=== PATIENT | female | born 1960 | race Caucasian/White ===

== ENCOUNTER → 2020-03-31 10:07 | Outpatient (CLI) | payer BC, SELFPAY ==
--- NOTE | ~2020-03-31 | DEXA_ITS ---
Bone Density Report Name: Ailyn Farah Age: 60 Sex: Female Ethnicity: White Date of : 1960 Indication: osteopenia; height loss; cancer; hysterectomy; Referring Provider: AXEL MACEDO Study: Bone densitometry was performed. Exam Date: March 31, 2020 Accession number: [id number] Bone Density: Region BMD T-score Z-score Classification AP Spine (L1, L2) 0.896 -0.8 0.6 Normal Femoral Neck (Left) 0.702 -1.3 0.0 Osteopenia Total Hip (Left) 0.856 -0.7 0.2 Normal Femoral Neck (Right) 0.719 -1.2 0.1 Osteopenia Total Hip (Right) 0.829 -0.9 0.0 Normal Total Hip Mean 0.843 -0.8 0.1 Normal World Health Organization criteria for BMD impression classify patients as: Normal (T-score at or above -1.0), Osteopenia (T-score between -1.0 and -2.5), or Osteoporosis (T-score at or below -2.5). 10-year Fracture Risk(1): Major Osteoporotic Fracture 7.2% Hip Fracture 0.5% Reported Risk Factors: [place] (), Neck BMD=0.702, BMI=33.3 (1) FRAX(R) Version 3.08. Fracture probability calculated for an untreated patient. Fracture probability may be lower if the patient has received treatment. Previous Exams: Region Exam Age BMD T-score BMD Change BMD Change Date g/cm2 vs Baseline vs Previous AP Spine(L1, L2) 03/31/2020 60 0.896 -0.8 0.085* 0.085* 10/12/2018 58 0.812 -1.5 Total Hip(Left) 03/31/2020 60 0.856 -0.7 0.017 0.017 10/12/2018 58 0.839 -0.8 Total Hip(Right) 03/31/2020 60 0.829 -0.9 0.018 0.018 10/12/2018 58 0.810 -1.1 *Denotes significance at 95% confidence level, LSC for AP Spine = 0.022 g/cm2, LSC for Total Hip = 0.027 g/cm2 Clinical Information Provided by Patient: Has used the following medications: Vitamin D, Calcium, MTV Has the following medical conditions: Hysterectomy, Breast Cancer 2019, ended chemo December 2019 Patient maximum height was 64 Menopause Age: 28 Drinks caffeinated beverages Onset of menses at age 12 Number of children 2 Impression: The patient has low bone mass, based on the Left Femoral Neck T-score. The patient has an estimated ten-year risk of hip fracture of 0.5% and an estimated ten-year risk of major fracture of 7.2%, based on the WHO FRAX algorithm. No significant bone loss was observed. Discussion: BONE DENSITY IS LOW AT ONE OR MORE SKELETAL SITES. This patient's lowest T-score is low at one or more skeletal sites. It meets t
== END ==
DX: M81.0 Age-related osteoporosis without current pathological fracture (principal); M85.852 Other specified disorders of bone density and structure, left thigh; M85.851 Other specified disorders of bone density and structure, right thigh
CPT/HCPCS: 77080

== ENCOUNTER 2020-07-21 14:45 | Emergency (ER) | payer BC, SELFPAY ==
--- NOTE | ~2020-07-21 | XR_ITS ---
EXAMINATION: XR wrist LT min 3V DATE: 07/21/2020 16:06 INDICATION: Left wrist pain. TECHNIQUE: 4 views of left wrist were obtained. COMPARISON: None. FINDINGS: Bone alignment is normal. No fracture. There is severe osteoarthritis of first carpometacar pal joint. IMPRESSION: 1. Severe osteoarthritis of first carpometacarpal joint. Reviewed, dictated and finalized at location A. NING DEVELOPER
[2020-07-21 15:36] VITALS: BP 131/81; PULSE 93; RESP 22; TEMP 36.9; O2SAT 99
--- NOTE | 2020-07-21 16:43 | PC.NURSE ---
Informed charged nurse that pt has been here over [address] signing up for pt.
--- NOTE | 2020-07-21 16:48 | ED.EXTPRO ---
HPI - Extremity Problem General Chief complaint: Extremity Problem,Nontraumatic Stated complaint: L wrist pain Time Seen by Provider: 07/21/20 16:47 Source: patient Mode of arrival: ambulatory Limitations: no limitations History of Present Illness HPI Narrative: Patient is a 6-year-old female complaining of left wrist pain,, 9 out of 10, worse with palpation and movement, started 5 days ago. Patient takes oxycodone for pain, just her last dose 5 hours ago. She denies any recent injury to the area. Patient denies any swelling or redness of her risk. Patient denies any fever or chills. Related Data Home Medications Medication Instructions Recorded Confirmed docusate sodium 100 mg capsule 100 mg PO DAILY PRN 03/22/20 05/24/20 lisinopril 20 mg tablet 20 mg PO DAILY 03/22/20 05/24/20 multivitamin 1 tablet PO DAILY 03/22/20 05/24/20 oxycodone-acetaminophen 10 mg-325 1 tablet PO Q6H PRN 03/22/20 05/24/20 mg tablet chlorhexidine gluconate 4 % 1 applic TOPICAL DAILY ml 05/24/20 05/24/20 topical liquid cyclobenzaprine 10 mg tablet 10 mg PO TID tablet 05/24/20 05/24/20 mupirocin calcium 2 % nasal ea INTRANASAL DAILY 05/24/20 05/24/20 ointment venlafaxine 150 mg 150 mg PO DAILY 05/24/20 05/24/20 capsule,extended release 24 hr Allergies Allergy/AdvReac Type Severity Reaction Status Date / Time Sulfa (Sulfonamide Allergy Unknown Unknown Verified 07/21/20 15:41 Antibiotics) cyclophosphamide Allergy chest Verified 07/21/20 15:41 tightness and wheezing Review of Systems Review of Systems: All systems reviewed & are unremarkable except as noted in HPI and below PMFSH Past Medical History Medical History Heartburn HTN (hypertension) Insomnia Osteoarthritis Osteopenia Pneumonia Thyroid nodule Surgical History Surgical History History of back surgery History of breast augmentation History of hysterectomy History of knee replacement Hx of cholecystectomy Social History Social History Smoking status: Never smoker Alcohol intake: current Gender identity (if verbalized by the patient): Female Exam Const: General: no acute distress and alert Nutritional Appearance: well nourished Orientation/consciousness: patient oriented x3 HENMT: Head: normal to inspection Neck: Neck: normal visual inspection Resp: Effort & Inspection: normal respiratory effort Skin: General skin exam: normal color, no jaundice and no pallor Rashes: no rashes Wounds: no wounds and no wounds noted Extrem: Other: Negative for any deformity, swelling, redness. Pain on palpation of the left wrist. Neurovascular is intact. Course Vital Signs Vital signs: Vital Signs Temperature 36.9 C 07/21/20 15:36 Pulse Rate 93 07/21/20 15:36 Respiratory Rate 22 H 07/21/20 15:36 Blood Pressure 131/81 07/21/20 15:36 Pulse Oximetry 99 07/21/20 15:36 Temperature 36.9 C 07/21/20 15:36 Pulse Rate 93 07/21/20 15:36 Respiratory Rate 22 H 07/21/20 15:36 Blood Pressure 131/81 07/21/20 15:36 Pulse Oximetry 99 07/21/20 15:36 MDM - Extremity (Nontraumatic) MDM Narrative Medical decision making narrative: Reviewed her x-ray no fracture or dislocation. On exam negative for any cellulitis or swelling thus ruling out any type of infection. Differential Diagnosis Differential diagnosis: Likely other (Left wrist strain, sprain, fracture, dislocation) Discharge Plan Discharge Clinical Impression: Left wrist pain Patient Disposition: Home, Self-Care Condition: Improved Instructions: Antibiotic Form, Arthralgia (ED) Prescriptions: No Action cyclobenzaprine 10 mg tablet 10 mg PO TID RF: 0 mupirocin calcium 2 % ointment intranasal DAILY RF: 0 chlorhexidine gluconate [Antiseptic Skin Clnsr(chlorhe)
[2020-07-21 17:27] VITALS: BP 127/79; PULSE 86; RESP 18; O2SAT 100
[2020-07-21] MEDS: KETOROLAC 30 MG/ML VIAL (*BKC) IM (17:37)
[2020-07-21] MEDS: diazePAM (*CRX) 5 MG TABLET PO (17:37)
== END 2020-07-21 18:11 | disposition home or self-care (01) ==
PROVIDERS: Emergency Provider Emergency Medicine; PCP Internal Medicine
DX: M25.532 Pain in left wrist (principal); I10 Essential (primary) hypertension; M19.90 Unspecified osteoarthritis, unspecified site; M85.80 Other specified disorders of bone density and structure, unspecified site; Z96.659 Presence of unspecified artificial knee joint
CPT/HCPCS: 73110; 96372; 99283; A9270; J1885

== ENCOUNTER → 2021-05-04 05:31 | Outpatient (CLI) | payer BC, SELFPAY ==
[2021-05-04 16:43] LABS: SARS-CoV-2 RNA PCR Negative
== END ==
PROVIDERS: PCP Internal Medicine; Visit Provider Nurse Practitioner
DX: Z20.822 Contact with and (suspected) exposure to COVID-19 (principal); J32.9 Chronic sinusitis, unspecified
CPT/HCPCS: C9803; U0003; U0005

== ENCOUNTER 2021-05-04 09:14 | Outpatient (CLI) | payer BC, SELFPAY ==
--- NOTE | ~2021-05-04 | XR_ITS ---
XR chest 2V 05/04/2021 09:43 Indication: Cough. Hypertension. Breast cancer. Procedure: PA and lateral views of the chest Comparison: Comparison to multiple prior studies sequentially, with oldest reviewed study dated 10/26. Findings: Heart size normal. No focal air space disease, pulmonary edema, pleural effusion or suspect ed pneumothorax. No acute osseous abnormality. There are cholecystectomy clips. Impression: 1: No acute cardiopulmonary disease. Reviewed, dictated and finalized at location D. Impression: 1: No acute cardiopulmonary disease.
== END 2021-05-04 09:15 | disposition home or self-care (01) ==
LOC: ANHIMG 09:18
PROVIDERS: PCP Internal Medicine; Visit Provider Nurse Practitioner
DX: R05.9 Cough, unspecified (principal)
CPT/HCPCS: 71046

== ENCOUNTER 2021-11-22 09:44 | Outpatient (CLI) | payer BC, SELFPAY ==
[2021-11-22 10:31] LABS: CRP < 0.5 mg/dL (<1.0)
[2021-11-22 13:38] LABS: Erythrocyte Sedimentation Rate 17 mm/hr (0-20)
[2021-11-22 15:34] LABS: Rheumatoid Factor < 8.6 IU/ML (<12)
== END 2021-11-22 09:45 | disposition home or self-care (01) ==
LOC: ANHLAB 09:53
PROVIDERS: PCP Internal Medicine
DX: M79.10 Myalgia, unspecified site (principal); R22.33 Localized swelling, mass and lump, upper limb, bilateral; M25.50 Pain in unspecified joint
CPT/HCPCS: 36415; 85652; 86038; 86140; 86430

== ENCOUNTER 2021-11-22 09:54 | Outpatient (CLI) | payer BC, SELFPAY ==
[2021-11-22 10:23] LABS: Basophils Absolute Auto 0.1 K/mm3 (0.0-0.1); Basophils Percent Auto 0.9 % (0.2-1.2); Eosinophils Absolute Auto 0.3 K/mm3 (0-0.3); Eosinophils Percent Auto 3.8 % (0-4.4); Hematocrit 44.6 % (37.0-47.0); Hemoglobin 14.4 g/dL (12.0-15.0); Immature Granulocyte Absolute 0.03 K/mm3 (0.00-0.031); Immature Granulocyte Percent A 0.4 % (0-0.5); Lymphocytes Percent Auto 23.5 % (18.3-44.2); Mean Corpuscular HGB Conc 32.3 g/dl (32-36); Mean Corpuscular Hemoglobin 29.9 pg (26-34); Mean Corpuscular Volume 92.7 fl (80-100); Monocytes Absolute Auto 0.4 K/mm3 (0.1-0.6); Monocytes Percent Auto 6.3 % (2.6-8.5); Neutrophils Absolute Auto 4.4 K/mm3 (1.3-6.7); Neutrophils Percent Auto 65.1 % (45.5-73.1); Platelet Count Result 324 k/mm3 (150-375); Red Blood Count 4.81 M/mm3 (4.2-5.4); Red Cell Distribution Width 13.6 % (11.5-14.5); White Blood Count 6.8 K/mm3 (4.5-10.0)
[2021-11-22 10:29] LABS: Alanine Aminotransferase 23 U/L (6-35); Albumin Level 4.4 g/dL (3.5-5.1); Alkaline Phosphatase 91 U/L (38-126); Anion Gap 4 mmol/L (8-16); Aspartate Amino Transferase 27 U/L (14-36); Bilirubin,Total 0.2 mg/dL (0.2-1.3); Blood Urea Nitrogen 10 mg/dL (7-17); Calcium 8.9 mg/dL (8.4-10.2); Carbon Dioxide 31 mmol/L (22-30); Chloride 103 mmol/L (98-107); Estimated Glomerular Filt Rate > 60; Glucose 95 mg/dL (65-110); Potassium 3.8 mmol/L (3.4-5.0); Sodium 138 mmol/L (137-145)
== END 2021-11-22 09:55 | disposition home or self-care (01) ==
PROVIDERS: PCP Internal Medicine; Visit Provider Internal Medicine Medical Oncology
DX: C50.411 Malignant neoplasm of upper-outer quadrant of right female breast (principal); Z17.1 Estrogen receptor negative status [ER-]; R10.11 Right upper quadrant pain
CPT/HCPCS: 36415; 80053; 85025

== ENCOUNTER 2022-06-24 10:30 | Inpatient (IN) | payer BC, SELFPAY ==
[2022-06-24] VITALS (34 sets, daily range): BP systolic 81–117; BP diastolic 47–75; PULSE 87–111; RESP 11–32; TEMP 36.1–36.9; O2SAT 88–100; BMI 36.1
--- NOTE | ~2022-06-24 | XR_ITS ---
EXAMINATION: XR chest 1V portable DATE: 06/24/2022 11:31 INDICATION: Shortness of breath and cough. TECHNIQUE: A single frontal view of the chest was obtained. COMPARISON: Chest 2 views 05/04/2021 FINDINGS: There are airspace opacities in left mid and lower lung zones. A calcified left lung nodule and calcified left hilar lymph nodes are consistent with old granulomatous disease. No pleural effus ion or pneumothorax. The heart size is normal. There are changes of anterior fusion procedure in cerv ical spine. There are changes of posterior fusion procedure in lumbar spine. IMPRESSION: 1. Airspace opacities in left mid and lower lung zones, consistent with atelectasis versus pneumonia. Reviewed, dictated and finalized at location A. NEYMAN PLUMBER IMPRESSION: 1. Airspace opacities in left mid and lower lung zones, consistent with atelect asis versus pneumonia.
--- NOTE | ~2022-06-24 | CT_ITS ---
EXAMINATION: CTA chest PE protocol DATE: 06/24/2022 12:56 INDICATION: Shortness of breath. Elevated d-dimer. TECHNIQUE: Computed tomography (CT) pulmonary angiogram of the chest was performed with 100 mL Omnipa que-350 intravenous contrast. Additional 3D reconstructions utilizing coronal maximum intensity proje ction (MIP) were performed. Automated exposure control and iterative reconstruction technique were em ployed. The dose-length product was 479.58 mGy-cm. COMPARISON: 10/21/2012 FINDINGS: Good contrast opacification of the pulmonary arteries. There is mild streak artifact from dense contr ast in the superior vena cava and right atrium. Mild scattered motion artifact. Together this only mi ldly decreases sensitivity in some of the smaller subsegmental pulmonary arteries. No pulmonary embol ism. There is a large region of consolidation without significant volume loss involving much of the l eft lower lobe consistent with pneumonia. Mild discoid atelectasis in the more anterior left lower lo be, the lingula and right middle lobe. There are some groundglass opacities in the bilateral lower hayden ngs along with mild peripheral linear opacities at the dependent right lower lobe consistent which is equivocal for additional atelectasis versus minimal pulmonary edema. No pleural effusion or pneumoth orax. Heart size is normal. No pericardial effusion. Thoracic aorta is normal in caliber with no diss ection. Mild likely reactive left hilar lymphadenopathy. Bilateral breast implants. Cholecystectomy c lips the gallbladder fossa. 1.4 cm cyst along the romel hepatis. Incidentally noted is a replaced lef t hepatic artery arising from the left gastric artery. Severe thoracic spondylosis with anterior fusi on at T7-T8. IMPRESSION: 1. No pulmonary embolism. 2. Left lower lobe pneumonia. 3. Atelectasis versus minimal pulmonary edema in the dependent lower lungs. Reviewed, dictated and finalized at location A. G DRIVER
--- NOTE | 2022-06-24 11:10 | ECG_ITS ---
Measurements Intervals [place] Rate: 90 P: 14 [place]: 147 QRS: -5 QRSD: 88 T: 79 QT: 314 QTc: 385 Interpretive Statements SINUS RHYTHM WITH SINUS ARRHYTHMIA MODERATE VOLTAGE CRITERIA FOR LVH, CONSIDER NORMAL VARIANT [MEETS CRITERIA IN ONE OF: R(aVL), S(V1), R(V5), R(V5/V6)+S(V1)] NONSPECIFIC T-WAVE ABNORMALITY NO PREVIOUS ECG AVAILABLE FOR COMPARISON Electronically Signed On 06-24-2022 15:13:27 [employer]ING [employer]ILING MACHINE SETTER by Jose Alfredo Whitfield M.D.
--- NOTE | 2022-06-24 11:36 | ED.SOB ---
HPI - SOB/Dyspnea General Chief Complaint: Shortness of Breath/Dyspnea <Sanjana Billingsley PA-C - Last Filed: 06/24/22 16:29> Stated Complaint: diff breathing <JOHN PAUL Martinez Last Filed: 06/24/22 16:29> Time Seen by Provider: 06/24/22 11:09 <JOHN PAUL Martinez Last Filed: 06/24/22 16:29> Source: patient <JOHN PAUL Martinez Last Filed: 06/24/22 16:29> Mode of arrival: ambulatory <JOHN PAUL Martinez Last Filed: 06/24/22 16:29> Limitations: no limitations <JOHN PAUL Martinez Last Filed: 06/24/22 16:29> History of Present Illness HPI Narrative: This is a 62-year-old female that presents to the emergency department for cold symptoms present over the last couple of days. Reports chills, productive cough, congestion, myalgias, nausea, vomiting, and generalized weakness. Reports today she had an episode of coughing where she did note a small amount of bright red blood in the sputum. Reports upper back pain worse with breathing and coughing. Reports shortness of breath. Denies lower extremity edema or abdominal pain. <Sanjana Billingsley PA-C - Last Filed: 06/24/22 16:29> Related Data Home Medications: Home Medications Medication Instructions Recorded Confirmed docusate sodium 100 mg capsule 100 mg PO DAILY PRN Constipation 03/22/20 06/24/22 (Colace) multivitamin 1 tablet PO DAILY 03/22/20 06/24/22 oxycodone-acetaminophen 10 mg-325 1 tablet PO Q6H PRN Pain 03/22/20 06/24/22 mg tablet (Percocet) cyclobenzaprine 10 mg tablet 10 mg PO TID 05/24/20 06/24/22 venlafaxine 150 mg 150 mg PO DAILY 05/24/20 06/24/22 capsule,extended release 24 hr (Effexor XR) alprazolam 0.25 mg tablet (Xanax) 0.25 mg PO DAILY PRN Anxiety 06/24/22 06/24/22 lisinopril 20 mg tablet 20 mg PO DAILY 06/24/22 06/24/22 <Sanjana Billingsley PA-C - Last Filed: 06/24/22 16:29> Allergies/Adverse Reactions: Allergies Allergy/AdvReac Type Severity Reaction Status Date / Time Sulfa (Sulfonamide Allergy Unknown Unknown Verified 07/21/20 15:41 Antibiotics) cyclophosphamide Allergy chest Verified 07/21/20 15:41 tightness and wheezing <Sanjana Billingsley PA-C - Last Filed: 06/24/22 16:29> Review of Systems Review of Systems: CONSTITUTIONAL: Reports chills, or sweats. EYES: Denies redness, or discharge. ENT: Reports rhinorrhea, congestion CARDIOVASCULAR: Reports chest pain. Denies edema. RESPIRATORY: Reports cough and dyspnea. GASTROINTESTINAL: Reports nausea, vomiting. Denies abdominal pain. MUSCULOSKELETAL: Reports back pain, joint pain, and myalgia. <Sanjana Billingsley PA-C - Last Filed: 06/24/22 16:29> All systems reviewed & are unremarkable except as noted in HPI and below <Sanjana Billingsley PA-C - Last Filed: 06/24/22 16:29> [facility], [facility] Past Medical History Medical History: Medical History Cancer of right breast Status post mastectomy and chemotherapy. Heartburn Hypertension Insomnia Osteoarthritis Osteopenia Thyroid nodule <Sanjana Billingsley PA-C - Last Filed: 06/24/22 16:29> Surgical History Surgical History: Surgical History History of back surgery History of bilateral mastectomy (10/12/19) History of breast augmentation History of cholecystectomy History of hysterectomy History of knee replacement <Sanjana Billingsley PA-C - Last Filed: 06/24/22 16:29> Family History Family History: Family History (Updated 06/24/22 @ 17:26 by Zaida Gonzalez, RN) Other Unknown family medical history <Sanjana Billingsley PA-C - Last Filed: 06/24/22 16:29> Social History Social History: Social History Smoking status: Never smoker Alcohol intake: current Gender identity (if verbalized by the patient): Female <Sanjana Billingsley PA-C - Last
[2022-06-24] MEDS: ALBUTEROL SULFATE NEB 2.5 MG/3 ML INH 5 MG INHALATION (11:43)
[2022-06-24] MEDS: IPRATROPIUM BR 0.02% INH SOLN 0.5 MG/2.5 ML VIAL INHALATION ×3 (11:43→21:52)
[2022-06-24 11:53] LABS: Lipase 23 U/L (23-300)
[2022-06-24 11:54] LABS: Alanine Aminotransferase 61 U/L (6-35); Albumin Level 4.2 g/dL (3.5-5.1); Alkaline Phosphatase 103 U/L (38-126); Anion Gap 8 mmol/L (8-16); Aspartate Amino Transferase 32 U/L (14-36); Bilirubin,Total 0.9 mg/dL (0.2-1.3); Blood Urea Nitrogen 48 mg/dL (7-17); Calcium 8.9 mg/dL (8.4-10.2); Carbon Dioxide 31 mmol/L (22-30); Chloride 93 mmol/L (98-107); Estimated Glomerular Filt Rate 29; Glucose 134 mg/dL (65-110); Potassium 4.1 mmol/L (3.4-5.0); Sodium 132 mmol/L (137-145)
[2022-06-24 11:55] LABS: Lactic Acid Reflex 1.3 mmol/L (0.7-2.0)
[2022-06-24 11:58] LABS: Hematocrit 39.1 % (37.0-47.0); Hemoglobin 13.1 g/dL (12.0-15.0); Mean Corpuscular HGB Conc 33.5 g/dl (32-36); Mean Corpuscular Hemoglobin 30.5 pg (26-34); Mean Corpuscular Volume 91.1 fl (80-100); Mean Platelet Volume 9.6 fl (7.4-10.4); Platelet Count Result 246 k/mm3 (150-375); Red Blood Count 4.29 M/mm3 (4.2-5.4); Red Cell Distribution Width 14.2 % (11.5-14.5); White Blood Count 32.7 K/mm3 (4.5-10.0)
[2022-06-24 12:00] LABS: INR 1.4; Prothrombin Time 16.8 Seconds (11.1-14.7)
[2022-06-24 12:01] LABS: Partial Thromboplastin Time 33.4 SECONDS (22.3-36.8)
[2022-06-24 12:03] LABS: NT Pro B Type Natriuretic Pept 1460 pg/mL (5-100)
[2022-06-24 12:10] LABS: D Dimer 2.85 ug/mL (<0.48)
[2022-06-24] MEDS: ONDANSETRON INJ 4 MG/2 ML VIAL IV PUSH (12:15)
[2022-06-24] MEDS: SODIUM CHLORIDE 0.9% IV 500 ML 999 ML IV CONT (12:16)
[2022-06-24 12:27] LABS: Band Neutrophils Percent 29 % (0-6); Lymphocytes Absolute Manual 1.96 K/mm3 (1.1-4.5); Metamyelocytes Percent 2 %; Monocytes Absolute Manual 0.65 K/mm3 (0.1-0.90); Monocytes Percent Manual 2 % (3-9); Neutrophils Absolute Manual 29.43 K/mm3 (1.7-7.2); Neutrophils Percent Manual 61 % (46-73); Platelet Estimate Adequate (Adequate); Schistocytes None Seen (NORMAL); Total Cells Counted 100
[2022-06-24 12:29] LABS: Influenza A QL RT-PCR Negative (Negative); Influenza B QL RT-PCR Negative (Negative); SARS-CoV-2 RNA PCR Negative
--- NOTE | 2022-06-24 13:30 | PM.IMHP ---
H&P: HPI History of Present Illness Date/Time: 06/24/22 13:30 Chief Complaint: Shortness of breath and cough. Narrative: This is a pleasant 62-year-old female with history of pneumonia, breast cancer, hypertension, and chronic back pain who presented to the emergency department from home for evaluation of shortness of breath and cough. She has not been feeling well since Friday with multiple symptoms to include subjective fever, chills, sweats, body aches, cough productive of yellow-green phlegm (pink-tinged this morning), severe pleuritic pain in the left flank/back, and progressive shortness of breath. She has no known sick contacts and denies headache, neck ache, sore throat, chest pain, palpitations, orthopnea, vomiting, diarrhea, edema, and calf pain. Chest CTA showed left lower lobe pneumonia and she is being admitted in this setting for IV antibiotics and further care. Review of Systems Review of Systems: Twelve systems were reviewed and are negative except for as per HPI. [facility] Past Medical History Medical History (Updated 06/24/22 @ 20:31 by Courtney Arnold PA-C) Cancer of right breast Status post mastectomy and chemotherapy. Chronic back pain Chronically on opiate therapy Heartburn Hypertension Insomnia Osteoarthritis Osteopenia Thyroid nodule Surgical History Surgical History History of back surgery History of bilateral mastectomy (10/12/19) History of breast augmentation History of cholecystectomy History of hysterectomy History of knee replacement Family History Family History Other Unknown family medical history Social History Social History (Updated 06/24/22 @ 20:23 by Courtney Arnold PA-C) Social History: Surrogate medical decision maker: Abisai hillman, spouse or Vivien Hillman, daughter. Code status: Full code. Smoking status: Never smoker Alcohol intake: never Substance use: never Substance use type: does not use Lack of Transportation: No Lack of Food: Never True Current Housing: I Have Housing Concerned About Future Housing: No Difficulty Paying Gas/Electric Bills: No Difficulty Paying for Meds: No Currently Unemployed: No Education: Associate Degree Difficulty w/ Childcare or Family Care: No Spiritual care concerns: No Meds Home Medications and Allergies Home Medications Medication Instructions Recorded Confirmed Type docusate sodium 100 mg capsule 100 mg PO DAILY PRN Constipation 03/22/20 06/24/22 History (Colace) multivitamin 1 tablet PO DAILY 03/22/20 06/24/22 History oxycodone-acetaminophen 10 mg-325 1 tablet PO Q6H PRN Pain 03/22/20 06/24/22 History mg tablet (Percocet) cyclobenzaprine 10 mg tablet 10 mg PO TID 05/24/20 06/24/22 History venlafaxine 150 mg 150 mg PO DAILY 05/24/20 06/24/22 History capsule,extended release 24 hr (Effexor XR) alprazolam 0.25 mg tablet (Xanax) 0.25 mg PO DAILY PRN Anxiety 06/24/22 06/24/22 History lisinopril 20 mg tablet 20 mg PO DAILY 06/24/22 06/24/22 History Allergies Allergy/AdvReac Type Severity Reaction Status Date / Time Sulfa (Sulfonamide Allergy Unknown Unknown Verified 07/21/20 15:41 Antibiotics) cyclophosphamide Allergy chest Verified 07/21/20 15:41 tightness and wheezing Vital Signs Vital Signs - 24 hr 06/24/22 10:44 Temperature 97 F L Pulse Rate 100 Respiratory Rate 32 H Blood Pressure 81/47 L Pulse Oximetry 95 Exam Const: Other: Moderately ill-appearing female in the semi-Plunkett position in bed. Weight: 89.6 kilograms. BMI: 36.9. HENMT: Other: Normocephalic, atraumatic. Tacky mucous membranes. Oropharynx clear. Eyes: Other: Pupils are reactive. Extraocular motions intact. Sclerae anicteric. Neck: Other: Supple. No midline vertebral tenderness. No nuchal rigidity. No significant lymphadenopathy.
[2022-06-24] MEDS: ALBUTEROL SULFATE NEB 2.5 MG/3 ML INH INHALATION ×2 (14:12→21:51)
[2022-06-24] MEDS: KETOROLAC 15 MG/ML VIAL (*BKC) IV PUSH (14:43)
[2022-06-24] MEDS: guaiFENesin 12 HR 600 MG TABCR PO ×2 (14:44→22:47)
--- NOTE | 2022-06-24 17:24 | ADMGEN ---
This patient, Ailyn Farah, was admitted to [facility] Surg Room 332-01 at 1650. Report per RIO Pisano. Patient/family oriented to hospital policies and general routines including ID bracelet, bed and alarms, visiting hours, pain management, procedures, bathroom and other care routines, personal items, smoking policy, room service/diet, and visiting hours. Information on how to activate the Rapid Response Team has been discussed. Patient/Family are encouraged to report perceived risks to care and to ask questions if they do not understand what they are told or what they should do.
[2022-06-24 19:48] LABS: Appearance Urine Clear (Clear); Bilirubin Urine Negative (Negative); Blood Urine 1+ (Negative); Color Urine Yellow (Yellow); Glucose Urine UA Negative (Negative); Ketones Urine Negative (Negative); Leukocyte Esterase Ur Negative LEU/UL (Negative); Nitrate Urine Negative (Negative); Protein Urine 1+ mg/dL (Negative); Specific Grav Ur 1.015 (1.001-1.035); Urobilinogen Urine 0.2 mg/dL (<2.0)
[2022-06-24 19:55] LABS: Add Urine Microscopic? YES; Mucus Urine Rare /lpf; Squamous Epithelial Cell Urine Rare /hpf (Few)
[2022-06-24] MEDS: oxyCODONE/ACETAMINOPHEN (*CRX) 10-325 MG TABLET 1 TAB PO (21:08)
[2022-06-24] MEDS: SODIUM CHLORIDE 0.9% IV 1,000 ML 100 ML IV CONT (21:11)
[2022-06-24] MEDS: CYCLOBENZAPRINE HCL 10 MG TABLET PO (22:51)
[2022-06-25] VITALS (12 sets, daily range): BP systolic 99–137; BP diastolic 55–73; PULSE 72–87; RESP 16–20; TEMP 36.1–36.5; O2SAT 96–99
[2022-06-25] MEDS: ALBUTEROL SULFATE NEB 2.5 MG/3 ML INH INHALATION ×3 (03:16→13:41)
[2022-06-25] MEDS: IPRATROPIUM BR 0.02% INH SOLN 0.5 MG/2.5 ML VIAL INHALATION ×3 (03:16→13:41)
[2022-06-25] MEDS: oxyCODONE/ACETAMINOPHEN (*CRX) 10-325 MG TABLET 1 TAB PO ×3 (05:07→19:28)
[2022-06-25] MEDS: CYCLOBENZAPRINE HCL 10 MG TABLET PO ×3 (05:07→20:52)
[2022-06-25 06:39] LABS: Basophils Absolute Auto 0.2 K/mm3 (0.0-0.1); Basophils Percent Auto 0.9 % (0.2-1.2); Eosinophils Percent Auto 0.1 % (0-4.4); Hematocrit 36.6 % (37.0-47.0); Hemoglobin 11.4 g/dL (12.0-15.0); Immature Granulocyte Absolute 0.21 K/mm3 (0.00-0.031); Lymphocytes Absolute Auto 0.86 K/mm3 (0.9-3.2); Lymphocytes Percent Auto 4.1 % (18.3-44.2); Mean Corpuscular HGB Conc 31.1 g/dl (32-36); Mean Corpuscular Hemoglobin 30.9 pg (26-34); Mean Corpuscular Volume 99.2 fl (80-100); Mean Platelet Volume 9.8 fl (7.4-10.4); Monocytes Absolute Auto 0.5 K/mm3 (0.1-0.6); Monocytes Percent Auto 2.4 % (2.6-8.5); Neutrophils Absolute Auto 19.3 K/mm3 (1.3-6.7); Neutrophils Percent Auto 91.5 % (45.5-73.1); Platelet Count Result 178 k/mm3 (150-375); Red Blood Count 3.69 M/mm3 (4.2-5.4); Red Cell Distribution Width 14.3 % (11.5-14.5); White Blood Count 21.1 K/mm3 (4.5-10.0)
[2022-06-25 07:04] LABS: Alanine Aminotransferase 40 U/L (6-35); Albumin Level 3.2 g/dL (3.5-5.1); Alkaline Phosphatase 121 U/L (38-126); Anion Gap 7 mmol/L (8-16); Aspartate Amino Transferase 27 U/L (14-36); Bilirubin,Total 0.7 mg/dL (0.2-1.3); Blood Urea Nitrogen 31 mg/dL (7-17); Calcium 8.3 mg/dL (8.4-10.2); Carbon Dioxide 25 mmol/L (22-30); Chloride 103 mmol/L (98-107); Estimated CRCL calculation 75 ml/min; Estimated Glomerular Filt Rate > 60; Glucose 107 mg/dL (65-110); Magnesium 2.4 mg/dL (1.6-2.3); Potassium 4.3 mmol/L (3.4-5.0); Sodium 135 mmol/L (137-145)
[2022-06-25] MEDS: VENLAFAXINE HCL XR 75 MG CAP.ER.24H 150 MG PO (09:12)
[2022-06-25] MEDS: ENOXAPARIN 40 MG/0.4 ML SYRINGE SUB-Q (09:13)
[2022-06-25] MEDS: MULTIVITAMINS THERAPEUTIC TAB (*BKC) 1 TABLET PO (09:13)
[2022-06-25] MEDS: guaiFENesin 12 HR 600 MG TABCR PO ×2 (09:13→20:52)
--- NOTE | 2022-06-25 12:20 | PM.IMPN ---
Progress Note: A&P Assessment and Plan (1) Acute kidney injury: Code(s): N17.9 - Acute kidney failure, unspecified Status: Acute Assessment and Plan: And gentle hydration. Avoid nephrotoxic drugs. Monitor antihypertensive drugs Avoid NSAIDs. Routine CMP monitor GFR. (2) Sepsis: Code(s): A41.9 - Sepsis, unspecified organism Status: Acute Assessment and Plan: IV fluid resuscitation Monitor lactic acid levels Repeat CBC CMP Two sets of Blood cultures urine cultures CXR shows left lower lobe Pneumonia Monitor albumin' Monitoring of mental status. IV antibiotics on Rocephin and Zithromax IV (3) Acute respiratory failure with hypoxia: Code(s): J96.01 - Acute respiratory failure with hypoxia Status: Acute Assessment and Plan: patient of negative for PE. will continue oxygen, encourage incentive spirometry, patient has shallow breathing due to the left-sided pleuritic pain. (4) Left lower lobe pneumonia: Code(s): J18.9 - Pneumonia, unspecified organism Status: Acute Assessment and Plan: plans to monitor oxygenation. Waiting for the blood culture results in the meantime continue IV antibiotics chest PT incentive spirometry Plan DVT prophylaxis. GI prophylaxis. All records reviewed Discussed plan of care with the nursing staff and with the patient in detail. Answered all questions and concerns from the patient. All labs have been reviewed. Code status updated dictation may have been done utilizing a voice recognition system. Attempts have been made to correct errors. However, there may be uncorrected grammatical, spelling, and recognition errors present. Subjective Date/time seen: 06/25/22 12:20 Interval history: patient admitted with left lower lobe pneumonia. Also still complains of left-sided chest pain the still has yellow green phlegm Review of Systems Review of Systems: All systems reviewed & are unremarkable except as noted in HPI and below Respiratory: Respiratory: Reports chest congestion, Reports cough and Reports dyspnea Exam Const: General: comfortable HENMT: Mouth: Yes moist mucous membranes Eyes: General: appearance normal, both eyes and all related structures Neck: Neck: supple Resp: Auscultation: crackles and diminished lung sounds Cardio: Rate: regular rate Rhythm: regular rhythm GI: GI Palp: Yes Soft to palpation Auscultation: normal bowel sounds Skin: Rashes: rashes noted Neuro: Motor exam (neuro): 5/5 motor strength present throughout Sensory Exam: normal sensation Extrem: General: normal to inspection Psych: Affect: normal affect Objective Data Vital Signs Vital Signs: Vital Signs - 24 hr 06/24/22 14:16 06/24/22 13:00 06/24/22 13:15 Temperature Pulse Rate 87 106 H 111 H Respiratory Rate 26 H 24 H 28 H Blood Pressure Pulse Oximetry 88 L 91 Oxygen Delivery Oxygen Flow Rate 06/24/22 13:20 06/24/22 13:30 06/24/22 13:31 Temperature Pulse Rate 102 H 96 92 Respiratory Rate 22 H 17 18 Blood Pressure 117/75 114/60 Pulse Oximetry 93 96 95 Oxygen Delivery Oxygen Flow Rate 06/24/22 13:45 06/24/22 14:00 06/24/22 14:01 Temperature Pulse Rate 99 87 95 Respiratory Rate 15 18 18 Blood Pressure 112/72 Pulse Oximetry 95 93 94 Oxygen Delivery Oxygen Flow Rate 06/24/22 14:15 06/24/22 14:30 06/24/22 14:45 Temperature Pulse Rate 95 100 101 H Respiratory Rate 21 H 20 24 H Blood Pressure 115/75 Pulse Oximetry 99 97 93 Oxygen Delivery Oxygen Flow Rate 06/24/22 15:04 06/24/22 15:18 06/24/22 15:32 Temperature Pulse Rate 100 110 H 90 Respiratory Rate 21 H 27 H 14 Blood Pressure Pulse Oximetry 92 91 93 Oxygen Delivery Oxygen Flow Rate 06/24/22 15:45 06/24/22 16:37 06/24/22 15:46 Temperature Pulse Rate 102 H 101 H Respiratory Rate 18 16 Blood Pressure 99/60 L 94/60 L Pulse Oximetry 93
[2022-06-25] MEDS: SODIUM CHLORIDE 0.9% IV 1,000 ML 100 ML IV CONT (17:44)
--- NOTE | 2022-06-25 22:15 | PCRCNOTE ---
Window of time for administration has passed. See next scheduled administration.
[2022-06-26] VITALS (16 sets, daily range): BP systolic 111–133; BP diastolic 63–75; PULSE 67–87; RESP 18–20; TEMP 36.1–36.5; O2SAT 95–99
[2022-06-26] MEDS: IPRATROPIUM BR 0.02% INH SOLN 0.5 MG/2.5 ML VIAL INHALATION ×3 (01:50→16:18)
[2022-06-26] MEDS: ALBUTEROL SULFATE NEB 2.5 MG/3 ML INH INHALATION ×3 (01:51→16:18)
[2022-06-26] MEDS: SODIUM CHLORIDE 0.9% IV 1,000 ML 100 ML IV CONT (03:26)
[2022-06-26] MEDS: oxyCODONE/ACETAMINOPHEN (*CRX) 10-325 MG TABLET 1 TAB PO ×2 (03:26→15:56)
[2022-06-26] MEDS: ONDANSETRON INJ 4 MG/2 ML VIAL IV PUSH (06:30)
[2022-06-26] MEDS: ENOXAPARIN 40 MG/0.4 ML SYRINGE SUB-Q (08:32)
[2022-06-26] MEDS: CYCLOBENZAPRINE HCL 10 MG TABLET PO ×3 (08:32→21:23)
[2022-06-26] MEDS: VENLAFAXINE HCL XR 75 MG CAP.ER.24H 150 MG PO (08:33)
[2022-06-26] MEDS: guaiFENesin 12 HR 600 MG TABCR PO ×2 (08:33→21:23)
[2022-06-26] MEDS: MULTIVITAMINS THERAPEUTIC TAB (*BKC) 1 TABLET PO (08:33)
--- NOTE | 2022-06-26 09:43 | PM.IMPN ---
Progress Note: A&P Assessment and Plan (1) Acute kidney injury: Code(s): N17.9 - Acute kidney failure, unspecified Status: Acute Assessment and Plan: And gentle hydration. Avoid nephrotoxic drugs. Monitor antihypertensive drugs Avoid NSAIDs. Routine CMP monitor GFR. (2) Sepsis: Qualifiers: Sepsis type: sepsis due to unspecified organism Sepsis acute organ dysfunction status: with acute organ dysfunction Severe sepsis acute organ dysfunction type: acute renal failure Acute renal failure type: unspecified Severe sepsis shock status: without septic shock Qualified Code(s): A41.9 - Sepsis, unspecified organism; R65.20 - Severe sepsis without septic shock; N17.9 - Acute kidney failure, unspecified Code(s): A41.9 - Sepsis, unspecified organism Status: Acute Assessment and Plan: IV fluid resuscitation Monitor lactic acid levels Repeat CBC CMP Two sets of Blood cultures urine cultures CXR shows left lower lobe Pneumonia Monitor albumin' Monitoring of mental status. IV antibiotics on Rocephin and Zithromax IV (3) Acute respiratory failure with hypoxia: Code(s): J96.01 - Acute respiratory failure with hypoxia Status: Acute Assessment and Plan: patient of negative for PE. will continue oxygen, encourage incentive spirometry, patient has shallow breathing due to the left-sided pleuritic pain. (4) Left lower lobe pneumonia: Qualifiers: Pneumonia type: due to unspecified organism Qualified Code(s): J18.9 - Pneumonia, unspecified organism Code(s): J18.9 - Pneumonia, unspecified organism Status: Acute Assessment and Plan: plans to monitor oxygenation. Waiting for the blood culture results in the meantime continue IV antibiotics chest PT incentive spirometry Plan DVT prophylaxis. GI prophylaxis. All records reviewed Discussed plan of care with the nursing staff and with the patient in detail. Answered all questions and concerns from the patient. All labs have been reviewed. Code status updated Subjective Date/time seen: 06/26/22 09:43 Review of Systems Review of Systems: All systems reviewed & are unremarkable except as noted in HPI and below Respiratory: Respiratory: Reports chest congestion, Reports cough and Reports dyspnea Exam Narrative: GENERAL: NAD, cooperative HEENT: Normocephalic, atraumatic, anicteric NECK: Supple CV: Regular rate RESP: No wheezes or rhonchi. Normal work of breathing. EXTREMITIES: Warm and well perfused, no clubbing, cyanosis SKIN: warm, dry and intact. NEURO:CN II-XII grossly intact. Objective Data Vital Signs Vital Signs: Vital Signs - 24 hr 06/25/22 13:42 06/25/22 13:47 06/25/22 19:52 Temperature 36.1 C L 36.4 C L Pulse Rate 74 87 83 Respiratory Rate 18 20 18 Blood Pressure 99/73 L 137/70 Pulse Oximetry 97 96 06/25/22 20:00 06/26/22 00:00 06/26/22 01:51 Temperature Pulse Rate 85 78 76 Respiratory Rate 18 Blood Pressure Pulse Oximetry 06/26/22 02:02 06/26/22 03:59 06/26/22 04:00 Temperature 36.3 C L Pulse Rate 78 72 71 Respiratory Rate 18 18 Blood Pressure 111/63 Pulse Oximetry 99 06/25/22 12:00 06/25/22 16:00 Temperature Pulse Rate 87 72 Respiratory Rate Blood Pressure Pulse Oximetry Intake/Output Intake/Output: Intake & Output 06/23/22 06/24/22 06/25/22 06/26/22 23:59 23:59 23:59 23:59 Intake Total 800 2180 1720 Output Total 300 1500 1000 Balance 500 680 720 Meds/Results Medications: Active Medications Generic Name Dose Route Start Last Admin Trade Name Freq PRN Reason Stop Dose Admin Albuterol 2.5 mg 06/24/22 14:00 06/26/22 01:51 Albuterol Sulfate Neb 2.5 Mg/3 Ml Inh INHALATION 2.5 mg Q6HRT SHIRA Administration Alprazolam 0.25 mg 06/24/22 20:31 Alprazolam (*Crx) 0.25 Mg Tablet PO DAILY PRN Anxiety Cyclobenzaprine HCl 10 mg 06/24/22 22:00 12
[2022-06-26] MEDS: cefTRIAXone 1 GM in DEXTROSE 5% IN WATER 50 ML IVPB (10:41)
[2022-06-26 11:04] LABS: Basophils Absolute Auto 0.1 K/mm3 (0.0-0.1); Basophils Percent Auto 0.6 % (0.2-1.2); Eosinophils Absolute Auto 0.2 K/mm3 (0-0.3); Eosinophils Percent Auto 1.8 % (0-4.4); Hematocrit 35.3 % (37.0-47.0); Hemoglobin 11.3 g/dL (12.0-15.0); Immature Granulocyte Absolute 0.16 K/mm3 (0.00-0.031); Immature Granulocyte Percent A 1.5 % (0-0.5); Lymphocytes Absolute Auto 1.73 K/mm3 (0.9-3.2); Lymphocytes Percent Auto 15.8 % (18.3-44.2); Mean Corpuscular Hemoglobin 30.2 pg (26-34); Mean Corpuscular Volume 94.4 fl (80-100); Mean Platelet Volume 9.4 fl (7.4-10.4); Monocytes Absolute Auto 0.5 K/mm3 (0.1-0.6); Monocytes Percent Auto 4.4 % (2.6-8.5); Neutrophils Absolute Auto 8.3 K/mm3 (1.3-6.7); Neutrophils Percent Auto 75.9 % (45.5-73.1); Platelet Count Result 262 k/mm3 (150-375); Red Blood Count 3.74 M/mm3 (4.2-5.4); Red Cell Distribution Width 14.3 % (11.5-14.5)
[2022-06-26 11:17] LABS: Anion Gap 7 mmol/L (8-16); Blood Urea Nitrogen 15 mg/dL (7-17); Calcium 8.6 mg/dL (8.4-10.2); Carbon Dioxide 28 mmol/L (22-30); Chloride 101 mmol/L (98-107); Estimated CRCL calculation 88 ml/min; Estimated Glomerular Filt Rate > 60; Glucose 106 mg/dL (65-110); Potassium 3.8 mmol/L (3.4-5.0); Sodium 136 mmol/L (137-145)
[2022-06-27] VITALS (11 sets, daily range): BP systolic 134–138; BP diastolic 70–80; PULSE 68–91; RESP 18–22; TEMP 36.5–36.8; O2SAT 95–97
--- NOTE | 2022-06-27 00:47 | PCRCNOTE ---
window of time for administration has passed. see next available administration.
[2022-06-27] MEDS: IPRATROPIUM BR 0.02% INH SOLN 0.5 MG/2.5 ML VIAL INHALATION ×2 (03:07→15:19)
[2022-06-27] MEDS: ALBUTEROL SULFATE NEB 2.5 MG/3 ML INH INHALATION ×2 (03:07→15:18)
[2022-06-27] MEDS: oxyCODONE/ACETAMINOPHEN (*CRX) 10-325 MG TABLET 1 TAB PO ×2 (03:57→12:06)
[2022-06-27] MEDS: CYCLOBENZAPRINE HCL 10 MG TABLET PO (07:58)
--- NOTE | 2022-06-27 08:28 | PM.IMPN ---
Subjective Date/time seen: 06/27/22 08:28 Objective Data Vital Signs Vital Signs: Vital Signs - 24 hr 06/26/22 09:50 06/26/22 09:50 06/26/22 10:02 Temperature Pulse Rate 87 74 Respiratory Rate 18 18 Blood Pressure Pulse Oximetry 98 Oxygen Delivery Nasal Cannula Oxygen Flow Rate 2 06/26/22 10:57 06/26/22 10:54 06/26/22 12:00 Temperature Pulse Rate 72 Respiratory Rate Blood Pressure Pulse Oximetry 99 99 Oxygen Delivery Room Air Room Air Oxygen Flow Rate 06/26/22 14:00 06/26/22 16:18 06/26/22 16:00 Temperature 36.1 C L Pulse Rate 82 76 75 Respiratory Rate 20 18 Blood Pressure 117/75 Pulse Oximetry 95 Oxygen Delivery Oxygen Flow Rate 06/26/22 20:05 06/26/22 20:05 06/26/22 21:35 Temperature 36.5 C Pulse Rate 69 76 75 Respiratory Rate 18 20 Blood Pressure 133/75 Pulse Oximetry 95 98 Oxygen Delivery Room Air Oxygen Flow Rate 06/27/22 00:00 06/27/22 03:09 06/27/22 03:10 Temperature Pulse Rate 76 85 Respiratory Rate 22 H Blood Pressure Pulse Oximetry 96 Oxygen Delivery Room Air Oxygen Flow Rate 06/27/22 03:22 06/27/22 05:42 06/27/22 04:00 Temperature 36.5 C Pulse Rate 82 91 86 Respiratory Rate 20 18 Blood Pressure 138/70 Pulse Oximetry 97 Oxygen Delivery Oxygen Flow Rate Intake/Output Intake/Output: Intake & Output 06/24/22 06/25/22 06/26/22 06/27/22 23:59 23:59 23:59 23:59 Intake Total 800 2180 2760 100 Output Total 300 1500 1900 1450 Balance 500 680 860 -1350 Meds/Results Medications: Active Medications Generic Name Dose Route Start Last Admin Trade Name Freq PRN Reason Stop Dose Admin Albuterol 2.5 mg 06/24/22 14:00 06/27/22 03:07 Albuterol Sulfate Neb 2.5 Mg/3 Ml Inh INHALATION 2.5 mg Q6HRT SHIRA Administration Alprazolam 0.25 mg 06/24/22 20:31 Alprazolam (*Crx) 0.25 Mg Tablet PO DAILY PRN Anxiety Cyclobenzaprine HCl 10 mg 06/24/22 22:00 06/27/22 07:58 Cyclobenzaprine Hcl 10 Mg Tablet PO 10 mg Q8HR SHIRA Administration Docusate Sodium 100 mg 06/24/22 20:31 Docusate Sodium 100 Mg Capsule PO DAILY PRN Constipation Enoxaparin Sodium 40 mg 06/25/22 09:00 06/26/22 08:32 Enoxaparin 40 Mg/0.4 Ml Syringe SUB-Q 40 mg DAILY SHIRA Administration Guaifenesin 600 mg 06/24/22 21:00 06/26/22 21:23 Guaifenesin 12 Hr 600 Mg Tabcr PO 600 mg Q12HR SHIRA Administration Ipratropium [place] 0.5 mg 06/24/22 14:00 06/27/22 03:07 Ipratropium Br 0.02% Inh Soln 0.5 Mg/2.5 Ml Vial INHALATION 0.5 mg Q6HRT SHIRA Administration Multivitamins Therapeutic 1 tablet 06/25/22 09:00 06/26/22 08:33 Multivitamins Therapeutic Tab (*Bkc) PO 1 tablet DAILY SHIRA Administration Ondansetron HCl 4 mg 06/26/22 06:11 06/26/22 06:30 Ondansetron Inj 4 Mg/2 Ml Vial IV PUSH 4 mg Q6H PRN Administration Nausea And Vomiting Oxycodone/Acetaminophen 1 tab 06/24/22 20:31 06/27/22 03:57 Oxycodone/Acetaminophen (*Crx) 10-325 Mg Tablet PO 1 tab Q6H PRN Administration Pain Venlafaxine HCl 150 mg 06/25/22 09:00 06/26/22 08:33 Venlafaxine Hcl Xr 75 Mg Cap.Er.24h PO 150 mg DAILY SHIRA Administration Radiology Results: ITS Impressions Chest X-Ray 06/24/22 11:42 IMPRESSION: 1. Airspace opacities in left mid and lower lung zones, consistent with atelectasis versus pneumonia. Chest CTA 06/24/22 13:01 IMPRESSION: 1. No pulmonary embolism. 2. Left lower lobe pneumonia. 3. Atelectasis versus minimal pulmonary edema in the dependent lower lungs. Labs Labs: Laboratory Results - last 24 hr 06/26/22 06/26/22 10:56 10:56 WBC 11.0 H RBC 3.74 L Hgb 11.3 L Hct 35.3 L MCV 94.4 MCH 30.2 MCHC 32.0 RDW 14.3 Plt Count 262 MPV 9.4 Immature Gran % (Auto) 1.5 H Neut % (Auto) 75.9 H Lymph % (Auto) 15.8 L [place] % (Auto) 4.4 Eos % (Auto) 1.8 Baso % (Aut
[2022-06-27] MEDS: MULTIVITAMINS THERAPEUTIC TAB (*BKC) 1 TABLET PO (09:06)
[2022-06-27] MEDS: VENLAFAXINE HCL XR 75 MG CAP.ER.24H 150 MG PO (09:06)
[2022-06-27] MEDS: guaiFENesin 12 HR 600 MG TABCR PO (09:06)
[2022-06-27] MEDS: ENOXAPARIN 40 MG/0.4 ML SYRINGE SUB-Q (09:07)
[2022-06-27] MEDS: ONDANSETRON INJ 4 MG/2 ML VIAL IV PUSH (09:08)
[2022-06-27 09:55] LABS: Hematocrit 34.5 % (37.0-47.0); Hemoglobin 11.4 g/dL (12.0-15.0); Mean Corpuscular Hemoglobin 29.8 pg (26-34); Mean Corpuscular Volume 90.3 fl (80-100); Mean Platelet Volume 9.2 fl (7.4-10.4); Platelet Count Result 272 k/mm3 (150-375); Red Blood Count 3.82 M/mm3 (4.2-5.4); Red Cell Distribution Width 14.2 % (11.5-14.5); White Blood Count 8.5 K/mm3 (4.5-10.0)
[2022-06-27 10:06] LABS: Anion Gap 7 mmol/L (8-16); Blood Urea Nitrogen 11 mg/dL (7-17); Calcium 8.7 mg/dL (8.4-10.2); Carbon Dioxide 31 mmol/L (22-30); Chloride 98 mmol/L (98-107); Estimated CRCL calculation 76 ml/min; Estimated Glomerular Filt Rate > 60; Glucose 120 mg/dL (65-110); Potassium 3.9 mmol/L (3.4-5.0); Sodium 136 mmol/L (137-145)
[2022-06-27 10:42] LABS: Atypical Lymphocytes Present; Band Neutrophils Percent 4 % (0-6); Basophils Absolute Manual 0.08 K/mm3 (0.0-0.1); Basophils Percent Manual 1 % (0-1); Eosinophils Absolute Manual 0.17 K/mm3 (0.02-0.5); Eosinophils Percent Manual 2 % (0-4); Lymphocytes Absolute Manual 1.78 K/mm3 (1.1-4.5); Monocytes Absolute Manual 0.51 K/mm3 (0.1-0.90); Monocytes Percent Manual 6 % (3-9); Myelocytes Percent 1 %; Neutrophils Absolute Manual 5.86 K/mm3 (1.7-7.2); Neutrophils Percent Manual 65 % (46-73); Platelet Estimate Adequate (Adequate); Total Cells Counted 100
[2022-06-27 10:43] LABS: Schistocytes None Seen (NORMAL)
--- NOTE | 2022-06-27 11:11 | PCRCNOTE ---
window of time for tx passed. will continue as scheduled at 1400
[2022-06-27 12:51] LABS: Influenza A QL RT-PCR Negative (Negative); Influenza B QL RT-PCR Negative (Negative); SARS-CoV-2 RNA PCR Negative
--- NOTE | 2022-06-27 16:31 | PM.DS ---
DS: Admitting Diagnosis Discharge Date 06/27/22 Admitting Diagnosis Pneumonia DS: Discharge Diagnosis Discharge Diagnosis (1) Acute respiratory failure with hypoxia: Code(s): J96.01 - Acute respiratory failure with hypoxia Status: Acute Assessment and Plan: CTA negative for PE but with LLL pneumonia. Hypoxia to 88% documented in ED. Patient given ceftriaxone and azithromycin with subsequent improvement with adequate oxygen saturation off oxygen the next day. Will discharge to home with cefpodoxime and azithromycin to complete treatment. (2) Sepsis: Code(s): A41.9 - Sepsis, unspecified organism Status: Acute Assessment and Plan: Acute kidney injury in the setting of hypoxia and CTA showing left lower lobe pneumonia. Blood cultures with no growth. Patient clinically improved with treatment with ceftriaxone and azithromycin. Will discharge to home with cefpodoxime and azithromycin. (3) Left lower lobe pneumonia: Code(s): J18.9 - Pneumonia, unspecified organism Status: Acute Assessment and Plan: Treatment with ceftriaxone and azithromycin. To complete treatment outpatient with cefpodoxime and azithromycin. (4) Acute kidney injury: Code(s): N17.9 - Acute kidney failure, unspecified Status: Acute Assessment and Plan: Creatinine 1.8 on admission but after hydration and treatment for pneumonia this was back down to 0.7. DS: Summary Hospital Course Reason for hospitalization: Hypoxia, Pneumonia Hospital Course: 62F with a past medical history of breast cancer, hypertension, chronic back pain who presented to the emergency department due to cough with shortness of breath and was found to have a left lower lobe pneumonia with hypoxia to 88% on room air. Patient had CTA chest which showed no pulmonary embolism but identified the left lower lobe pneumonia. Patient was given supplemental oxygen and started on ceftriaxone and azithromycin. The next morning the patient said she felt much better but had still been requiring oxygen into late morning, so the patient was kept to attempt to wean the oxygen. Patient was able to maintain adequate oxygen saturation on room air later in the day. The next morning the patient denied having shortness of breath or difficulty breathing on room air but said she felt like he had body aches all over. She was tested fro influenza and COVID19, which were negative. The patient was amenable to discharge to home as long as the COVID19 and influenza tests were negative. Patient advised to follow up [facility] physican by July 01. Patient discharged to home with cefpodoxime and azithromycin to complete treatment. Time Spent with Patient Time attestation: Total time spent providing and/or coordinating discharge services: DS: Data Data Completed and Pending Labs on day of discharge: Labs from last 24 hours 06/27/22 06/27/22 06/27/22 12:05 09:44 09:44 WBC 8.5 RBC 3.82 L Hgb 11.4 L Hct 34.5 L MCV 90.3 MCH 29.8 MCHC 33.0 RDW 14.2 Plt Count 272 MPV 9.2 Immature Gran % (Auto) Not Reportable Neut % (Auto) Not Reportable Lymph % (Auto) Not Reportable [place] % (Auto) Not Reportable Eos % (Auto) Not Reportable Baso % (Auto) Not Reportable Lymph # (Auto) Not Reportable [place] # (Auto) Not Reportable Eos # (Auto) Not Reportable Baso # (Auto) Not Reportable Abs Immat Gran (auto) Not Reportable Absolute Neuts (auto) Not Reportable Absolute Nucleated RBC Not Reportable Total Counted 100 Neutrophils % (Manual) 65 Band Neutrophils % 4 Lymphocytes % (Manual) 21.0 Monocytes % (Manual) 6 Eosinophils % (Manual) 2 Basophils % (Manual) 1 Myelocytes % 1 Nucleated RBC % Not Reportable Abs Neuts (Manual) 5.86 Abs Lymphs (Manual) 1.78 Abs Monocytes (Manual) 0.51 Absolute Eos (Manual) 0.17 Abs Bas
[2022-06-27 18:02] LABS: Mycoplasma IgM Antibody Titer 216 U/mL (<770)
--- NOTE | 2022-06-27 18:15 | PC.NURSE ---
Left message with pharmacy to get azithromycin and rocephin due at 1800, will give when received
[2022-06-27] MEDS: AZITHROMYCIN 250 MG TABLET 500 MG PO (19:41)
[2022-06-27] MEDS: cefTRIAXone 1 GM VIAL IM ×2 (19:42→19:54)
[2022-06-27 22:53] LABS: Legionella pneumophila Ag Ur Not Detected (Not Detected)
== END 2022-06-27 20:06 | disposition home or self-care (01) | DRG 871 ==
LOC: ANHED 12:05 → ANH3MEDSUR 15:50
PROVIDERS: Physician Assistant; Admitting Provider Internal Medicine; Emergency Provider Emergency Medicine; PCP Internal Medicine; Visit Provider Family Medicine
DX: A41.9 Sepsis, unspecified organism (principal); J18.9 Pneumonia, unspecified organism; J96.01 Acute respiratory failure with hypoxia; N17.9 Acute kidney failure, unspecified; Z20.822 Contact with and (suspected) exposure to COVID-19; I10 Essential (primary) hypertension; M19.90 Unspecified osteoarthritis, unspecified site; M85.80 Other specified disorders of bone density and structure, unspecified site; E86.0 Dehydration; E04.1 Nontoxic single thyroid nodule; Z96.659 Presence of unspecified artificial knee joint; Z85.3 Personal history of malignant neoplasm of breast; Z90.49 Acquired absence of other specified parts of digestive tract; Z90.710 Acquired absence of both cervix and uterus
CPT/HCPCS: 36415; 71045; 71275; 80048; 80053; 81001; 83605; 83690; 83735; 83880; 85025; 85380; 85610; 85730; 86738; 87040; 87070; 87205; 87449; 87502; 87636; 87899; 93005; 94640; 96365; 96366; 96368; 96375; 99291; A9270; G0378; J0456; J0696; J1650; J1885; J2405; J7030; J7040; Q9967; U0003; U0005

== ENCOUNTER 2022-11-25 13:56 | Outpatient (CLI) | payer BC, SELFPAY ==
[2022-11-25 19:54] LABS: Basophils Absolute Auto 0.1 K/mm3 (0.0-0.1); Eosinophils Absolute Auto 0.6 K/mm3 (0-0.3); Eosinophils Percent Auto 8.8 % (0-4.4); Hematocrit 41.3 % (37.0-47.0); Hemoglobin 13.2 g/dL (12.0-15.0); Immature Granulocyte Absolute 0.03 K/mm3 (0.00-0.031); Immature Granulocyte Percent A 0.4 % (0-0.5); Lymphocytes Absolute Auto 1.86 K/mm3 (0.9-3.2); Lymphocytes Percent Auto 25.8 % (18.3-44.2); Mean Corpuscular Hemoglobin 29.6 pg (26-34); Mean Corpuscular Volume 92.6 fl (80-100); Mean Platelet Volume 9.5 fl (7.4-10.4); Monocytes Absolute Auto 0.5 K/mm3 (0.1-0.6); Monocytes Percent Auto 7.1 % (2.6-8.5); Neutrophils Absolute Auto 4.1 K/mm3 (1.3-6.7); Neutrophils Percent Auto 56.9 % (45.5-73.1); Platelet Count Result 346 k/mm3 (150-375); Red Blood Count 4.46 M/mm3 (4.2-5.4); Red Cell Distribution Width 13.3 % (11.5-14.5); White Blood Count 7.2 K/mm3 (4.5-10.0)
[2022-11-25 21:15] LABS: Iron 53 ug/dL (37-170)
[2022-11-25 21:26] LABS: Percent Iron Saturation 16 % (20-50)
[2022-11-25 21:47] LABS: Alanine Aminotransferase 30 U/L (6-35); Albumin Level 4.2 g/dL (3.5-5.1); Alkaline Phosphatase 89 U/L (38-126); Aspartate Amino Transferase 38 U/L (14-36); Bilirubin,Total 0.4 mg/dL (0.2-1.3); Blood Urea Nitrogen 15 mg/dL (7-17); Carbon Dioxide > 40 mmol/L (22-30); Chloride 97 mmol/L (98-107); Estimated Glomerular Filt Rate > 60; Glucose 78 mg/dL (65-110); Potassium 4.1 mmol/L (3.4-5.0); Sodium 139 mmol/L (137-145)
[2022-11-25 23:04] LABS: Folic Acid 12.7 ng/mL (2.76->20)
== END 2022-11-25 13:57 | disposition home or self-care (01) ==
LOC: ANHGOSHLAB 13:57
PROVIDERS: PCP Internal Medicine; Visit Provider Nurse Practitioner
DX: R53.83 Other fatigue (principal); D64.9 Anemia, unspecified; F41.9 Anxiety disorder, unspecified; I10 Essential (primary) hypertension
CPT/HCPCS: 36415; 80053; 82607; 82728; 82746; 83540; 83550; 84443; 85025

== ENCOUNTER 2022-12-12 13:58 | Outpatient (CLI) | payer BC, SELFPAY ==
[2022-12-12 18:38] LABS: Anion Gap 5 mmol/L (8-16); Blood Urea Nitrogen 16 mg/dL (7-17); Carbon Dioxide 37 mmol/L (22-30); Chloride 99 mmol/L (98-107); Estimated Glomerular Filt Rate > 60; Glucose 67 mg/dL (65-110); Potassium 3.9 mmol/L (3.4-5.0); Sodium 141 mmol/L (137-145)
== END 2022-12-12 13:59 | disposition home or self-care (01) ==
LOC: ANHGOSHLAB 13:59
PROVIDERS: PCP Internal Medicine; Visit Provider Nurse Practitioner
DX: R79.81 Abnormal blood-gas level (principal)
CPT/HCPCS: 36415; 80048

== ENCOUNTER 2023-02-25 14:29 | Emergency (ER) | payer BC, SELFPAY ==
--- NOTE | ~2023-02-25 | CT_ITS ---
EXAMINATION: CT lumbar spine wo con DATE: 02/25/2023 15:58 INDICATION: multiple back surgeries, severe R back pain . TECHNIQUE: Computed tomography (CT) of the lumbar spine was performed without intravenous contrast. A utomated exposure control and iterative reconstruction technique were employed. The dose-length produ ct was 1166.05 mGy-cm. COMPARISON: CT abdomen pelvis 02/04/2017. FINDINGS: Uncomplicated appearing posterior fusion hardware spanning L2-S1. Interbody device at L4-5, in good position. 5 nonrib-bearing lumbar-type vertebral bodies. 6 mm retrolisthesis at L1-2. Stable 4 mm anterolisthesis at L4-5. Laminectomy defects at L3-L5. No severe central canal or neural forami nal narrowing detected, noting that metal artifact obscures anatomic detail at several levels. IMPRESSION: Grade 2 retrolisthesis at L1-2. No acute fracture in the lumbar spine. No CT evidence of hardware related complication. Reviewed, dictated and finalized at location K.
[2023-02-25 14:32] VITALS: BP 171/94; PULSE 75; RESP 18; TEMP 36.6; O2SAT 98
--- NOTE | 2023-02-25 15:41 | ED.BACK ---
HPI - Back Pain/Injury General Chief Complaint: Back Pain/Injury Stated Complaint: lower back pain Time Seen by Provider: 02/25/23 14:41 History of Present Illness HPI Narrative: Patient is a 63-year-old female presenting with lower back pain. Patient states that she has had numerous lower back surgeries and she is concerned that some of her hardware is dislodged because she has severe right-sided lower back pain that goes into her buttocks. States that the right leg feels weak secondary to pain but she denies any new numbness or difficulty ambulating. States that she is on chronic Percocets due to terrible arthritis and she last took 1 this morning. States that she needs some more pain medicines. She denies saddle anesthesia, bladder or bowel incontinence. No fevers or chills. Denies further complaints. Her is at bedside and states that they have been trying to get a hold of her neurosurgeon but they have not returned their call for 2 days. Related Data Home Medications Medication Instructions Recorded Confirmed docusate sodium 100 mg capsule 100 mg PO DAILY PRN Constipation 03/22/20 02/11/23 (Colace) multivitamin 1 tablet PO DAILY 03/22/20 02/11/23 lisinopril 20 mg tablet 20 mg PO DAILY 06/24/22 02/11/23 cyclobenzaprine 10 mg tablet 10 mg PO QPM 10/30/22 02/11/23 alpha lipoic acid 600 mg capsule 600 mg PO DAILY 11/25/22 02/11/23 calcium 250 mg-D3 400 1 tablet PO DAILY 11/25/22 02/11/23 unit-magnesium 40 ly-[id number]-copper-manasa tablet gabapentin 100 mg capsule 100 mg PO QHS 11/25/22 02/11/23 nabumetone 500 mg tablet 500 mg PO BID 11/25/22 02/11/23 venlafaxine 75 mg capsule,extended 225 mg PO DAILY 11/25/22 02/11/23 release 24 hr vitamin E (dl, acetate) 45 mg (100 45 mg PO DAILY 11/25/22 02/11/23 unit) capsule Allergies Allergy/AdvReac Type Severity Reaction Status Date / Time Sulfa (Sulfonamide Allergy Unknown Unknown Verified 02/11/23 08:55 Antibiotics) cyclophosphamide Allergy chest Verified 02/11/23 08:55 tightness and wheezing Review of Systems Review of Systems: All systems reviewed & are unremarkable except as noted in HPI and below PMFSH Past Medical History Medical History Cancer of right breast Status post mastectomy and chemotherapy. Chemotherapy-induced peripheral neuropathy Chronic back pain Chronic pain with drug dependence Chronically on opiate therapy Erosive (osteo)arthritis Heartburn Hypertension Insomnia Left lower lobe pneumonia Osteoarthritis Osteopenia Pneumonia Preoperative clearance Thyroid nodule Surgical History Surgical History History of back surgery History of bilateral mastectomy (10/12/19) History of breast augmentation History of cholecystectomy History of hysterectomy History of knee replacement Family History Family History Other Unknown family medical history Social History Social History Social History: Surrogate medical decision maker: Abisai hillman, spouse or Vivien Hillman, daughter. Code status: Full code. Smoking status: Never smoker Alcohol intake: never Substance use: never Substance use type: does not use Lack of Transportation: No Lack of Food: Never True Current Housing: I Have Housing Concerned About Future Housing: No Difficulty Paying Gas/Electric Bills: No Difficulty Paying for Meds: No Currently Unemployed: No Education: Associate Degree Difficulty w/ Childcare or Family Care: No Spiritual care concerns: No Exam Narrative: GENERAL: Well-appearing, mildly distressed secondary to pain, pleasant and cooperative HEAD: Normocephalic, atraumatic. EYES: PERRLA and EOMI. ENT: Nares clear, no rhinorrhea or epistaxis. NECK: Supple. CHEST: No res
[2023-02-25] MEDS: oxyCODONE/ACETAMINOPHEN (*CRX) 5-325 MG TABLET 2 TABLET (16:46)
== END 2023-02-25 19:09 | disposition home or self-care (01) ==
PROVIDERS: Emergency Provider Emergency Medicine; PCP Internal Medicine
DX: M54.50 Low back pain, unspecified (principal); G89.29 Other chronic pain; I10 Essential (primary) hypertension; M19.90 Unspecified osteoarthritis, unspecified site; M85.80 Other specified disorders of bone density and structure, unspecified site; Z96.659 Presence of unspecified artificial knee joint; Z85.3 Personal history of malignant neoplasm of breast; Z92.21 Personal history of antineoplastic chemotherapy; Z87.01 Personal history of pneumonia (recurrent); Z90.13 Acquired absence of bilateral breasts and nipples; Z90.49 Acquired absence of other specified parts of digestive tract; Z90.710 Acquired absence of both cervix and uterus
CPT/HCPCS: 72131; 96372; 99284; A9270; J1100

== ENCOUNTER 2024-01-06 10:28 | Outpatient (CLI) | payer BC, SELFPAY ==
--- NOTE | ~2024-01-06 | XR_ITS ---
EXAMINATION: XR chest 2V DATE: 01/06/2024 10:45 INDICATION: Unspecified cough TECHNIQUE: PA and lateral views of the chest were obtained. COMPARISON: Chest radiograph dated FINDINGS: Lungs are clear with no focal airspace opacities, pulmonary edema, pleural effusion or pneumothorax. The cardiomediastinal silhouette is normal. Bilateral breast implants which project over the lower hayden ngs. Cholecystectomy clips in the right upper quadrant. Anterior fusion with interbody bone graft cag e at L1-L2 and instrumented posterior spinal fusion with bilateral vertical faby and pedicle screw fix ation beginning at T11 and extending caudally through at least L3 and beyond the inferior margin of t he [id number]. Lower cervical anterior spinal fusion with anterior plate and screw fixation. IMPRESSION: 1. No acute cardiopulmonary disease. Reviewed, dictated and finalized at location B.
== END 2024-01-06 10:29 ==
PROVIDERS: PCP Internal Medicine; Visit Provider Clinical Nurse Specialist
DX: R05.9 Cough, unspecified (principal); Z87.01 Personal history of pneumonia (recurrent)
CPT/HCPCS: 71046

== ENCOUNTER 2024-11-11 09:54 | Outpatient (CLI) | payer BC, SELFPAY ==
--- OUTSIDE RECORDS SUMMARY | 2024-11-11 10:39 | XMS_ITS | Referral Summary ---
Author Organization [facility] Address [address] [place] [address] Care Team Providers Care Sample Maker Original Name Role Phone Anson Reed DO Primary Care Provider [phone]- [phone] [facility] Encounters Date Type Department Care Team Description 11/04/2024 8:45 AM CDT - 11/04/2024 11:59 PM CDT Hospital Encounter [id number] [address] [place] [address] [address] [place] [phone] Spinal stenosis of lumbar region with neurogenic claudication; S/P spinal fusion Discharge Disposition: Discharge to home or self care 11/04/2024 9:15 AM CDT Office Visit [facility] [address] [place] [address] Office [facility] [address] [phone] Nathan Clay MD Spinal stenosis of lumbar region with neurogenic claudication (Primary Dx); History of total bilateral knee replacement; Acute pain of right knee 10/04/2024 Orders Only [facility] [address] [place] [address] Office [facility] [address] [place] [address] Nathan Clay MD S/P spinal fusion (Primary Dx); Spinal stenosis of lumbar region with neurogenic claudication 10/04/2024 Orders Only [facility] [address] Medical Office Building [address] [place] [address] Nathan Clay MD S/P spinal fusion (Primary Dx); Spinal stenosis of lumbar region with neurogenic claudication 10/01/2024 Orders Only [facility] [address] [facility] Office Building [address] [phone] Nathan Clay MD Spinal stenosis of lumbar region with neurogenic claudication (Primary Dx); S/P spinal fusion 08/27/2024 Orders Only [facility] [address] [place] [address] Jennifer Hsu NP 08/26/2024 Orders Only [facility] [address] [place] [address] Jennifer Hsu NP from Last 3 Months Allergies Active Allergy Reactions Criticality Noted Date Comments Cyclophosphamide Chest tightness,Wheezing Medium 12/14/2019 Sulfa (Sulfonamide Antibiotics) Rash Medium 05/12/2018 Medications multivitamin tabletIndicatio ns:Vitamin Deficiency Prevention Take 1 tablet by mouth every morning organic Active lisinopril (PRINIVIL,ZESTR IL) 20 mg tabletIndicatio ns:hypertension Take 1 tablet (20 mg total) by mouth every morning 0 Active ascorbic acid (VITAMIN C) 1,000 mg tabletIndicatio ns:Vitamin C Deficiency Take 1 tablet (1,000 mg total) by mouth every morning Active calcium carb/D3/magnesi um/zinc (calcium carb-D3-mag kka92-szai) [phone] wd-vndb-yo-mg tabletIndicatio ns:Vitamin Deficiency Prevention Take 1 tablet by mouth every morning Active docusate sodium (COLACE) 100 mg capsuleIndicati ons:constipatio n Take 1 capsule (100 mg total) by mouth 2 (two) times a day 30 capsule 0 Active naloxone (NARCAN) 4 mg/actuation spray,non-aeros ol Administer 1 spray into affected nostril(s) as needed for opioid reversal Call 911. Administer a single spray in one nostril. Repeat every 3 minutes as needed if no or minimal response. 1 each 0 Active Additional Information Patient not taking.Informant: Self, Reported on 06/29/2024 morphine ER (MS CONTIN) 15 mg 12 hr tablet Take 1 tablet (15 mg total) by mouth nightly for 42 doses STOPPED 09/09/[address] CLAY'S OFFICE 42 tablet 4 Active cyclobenzaprine (FLEXERIL) 10 mg tablet Take 1 tablet (10 mg total) by mouth 3 (three) times a day as needed for muscle spasms 20 tablet 4 Active oxyCODONE-aceta minophen (PERCOCET) 10-325 mg per tablet Take 1 tablet by mouth every 6 (six) hours as needed for pain 4 Active traMADoL (ULTRAM) 50 mg tablet Take 1 tablet (50 mg total) by mouth as needed for pain 4 Active hydrOXYzine (VISTARIL) 25 mg capsule TAKE ONE TO THREE CAPSULES BY MOUTH ONE TIME DAILY NEEDED FOR ANXIETY 4 Active gabapentin (NEURONTIN) 300 mg capsule Take 1 capsule (300 mg total) by mouth 3 (three) times a day 90 capsule 11 5 08/27/19 26 Active venlafaxine XR (EFFEXOR-XR) 75 mg 24 hr capsule TAKE 1 CAPSULE BY MOUTH EVERY DAY 30 capsule 5 5 Active gabapentin (NEURONTIN) 100 mg capsule 5 Active calcium carbonate-vitam in D3 1,250mg (500mg elemental) - 5 mcg (200 units) per tablet Take 1 tablet by mouth Active hydrOXYzine (ATARAX) 25 mg tablet 5 Active multivitamin with folic acid 400 mcg tablet Take 1 tablet by mouth daily Active Active Problems Problem Noted Date Diagnosed Date Anxiety 10/05/2023 Assessment & Plan (10/08/2023 9:54 AM CDT): -Home xanax on hold while on valium. D/C with small supply of Valium for muscle spasms. Instructed her to NOT take Xanax and Valium on the same day. Back pain with radiculopathy 10/04/2023 Assessment & Plan (10/08/2023 9:53 AM CDT): -presented with right side pain in setting of removal of instrumentation L2-S1, Fusion Exploration, L1-2 Posterior Lumbar Laminectomy, L1-L2 TLIF, Revision [id number] Posterior Spinal Fusion with Instrumentation with ortho on 09/28. Suspect radicular/post-op pain. No e/o biliary pathology on CT or LFTs (s/p noe in 90s), bowel obstruction/ileus or pyelo on CT. UA with pyuria but no urinary symptoms. -CT L spine with post-surgical changes, no acute surgical interventions per spine -scoliosis Xray did not show any acute abnormalities -IV steroids changed to medrol dosepak per spine -PT/OT consulted -Pain control: gabapentin, lidocaine patch, prn oxycodone, MSContin QHS, prn IV dilaudid and IV valium short-term. Hold baclofen for now given pt reported did not help, added prn flexeril to watch for improvement - much better today, d/c home. Declined home health. Pyuria 10/04/2023 Assessment & Plan (10/08/2023 9:53 AM CDT): -WBC on UA but no urinary symptoms and no concern on CT urine culture contaminated Spinal stenosis, lumbar katy on, with neurogenic claudication 08/12/2023 S/P lumbar spinal fusion 08/12/2023 Obesity 03/27/2023 Sacroiliac joint pain 08/01/2022 H/O: hysterectomy 07/26/2022 History of cholecystectomy 07/26/2022 Low back pain 07/25/2022 History of total bilateral knee replacement 07/14 History of bilateral mastectomy 07/25/2022 Overview (03/27/2023): 2020 Status post cervical spinal fusion 07/25/2022 Tendinitis of long head of biceps brachii of lef t shoulder 05/13/2022 Impingement syndrome of left shoulder region 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 Full thickness rotator cuff tear 05/02/2022 Breast and nipples, absence of, bilateral 2020 Overview (10/26/2020): Added automatically from request for surgery [id number] Hypertension 05/25/2020 Assessment & Plan (10/04/2023 9:39 PM CDT): -Continue home lisinopril Hyperlipemia 05/25/2020 Encounter for person encountering health service s 10/26/2019 History of breast cancer 10/25/2019 Assessment & Plan (10/04/2023 9:40 PM CDT): In remission -Continue home venlafaxine (for hot flashes) Acquired absence of both breasts 10/25/2019 Malignant neoplasm of upper- outer quadrant of right breast in female, estrogen receptor negative 08/17/2019 Mild malnutrition 07/20/2018 Spinal stenosis of lumbar re gion with neurogenic claudication 07/18/2018 Acute blood loss anemia 07/18/2018 Fibrocystic breast changes 05/12/2018 Leukocytosis Left elbow pain Resolved Problems Problem Noted Date Diagnosed Date Resolved Date RSV (respiratory syncytial virus pneumonia) 07/19/2018 10/04/2023 Left wrist pain 07/30/2018 Urinary tract infection without hematuria 07/18/2018 Immunizations Immunization Administration Dates Next Due Influenza, Quadrivalent, Marcia l Culture-based MDCK, Antibiotic Free, Intramuscular 06/23/2018 Influenza, Quadrivalent, Marcia l Culture-based MDCK, Preservative Free, Antibiotic Free, Intramuscular 04/24/2021 Influenza, Quadrivalent, Spl it, Preservative Free, Intramuscular 05/29/2020,06/29/2019 Influenza, Unspecified 04/13/2019 Social History Tobacco Use Types Packs/Day Years Used Date Smoking Tobacco: Never Passive Smoke Exposure: Past Smokeless Tobacco: Never Tobacco Cessation:Counseling Given: Not Answered Alcohol Use Standard Drinks/Week Comments Yes 0 (1 standard drink = 0.6 oz pur e alcohol) rare AUDIT-C Answer Date Recorded Q1: How often do you have a drink containing alc ohol? Monthly or less 10/04/2023 Q2: How many drinks containi ng alcohol do you have on a typical day when you are drinking? 1 or 2 10/04/2023 Q3: How often do you have si x or more drinks on one occasion? Never 10/04/2023 Personal Safety Answer Date Recorded Have you ever been in or are you currently in a harmful physical or emotional relationship or is someone making you feel afraid or unsafe? Denies 10/04/2023 Comments No Sex and Gender Information Value Date Recorded Sex Assigned at Not on file Legal Sex Female 10:23 AM [employer]CHOOL PH[employer]GR[employer] DETAILER Gender Identity Not on file Sexual Orientation Not on file Last Filed Vital Signs Vital Sign Reading Time Taken Comments Blood Pressure 146/86 06/29/2024 1:24 PM SCHOOL PH[employer] DETAILER Pulse 96 06/29/2024 1:24 PM [employer]CHOOL PH[employer] DETAILER Temperature 36.7 C (98.1 F) 06/29/2024 1:24 PM SCHOOL PH[employer]GR[employer] DETAILER Respiratory Rate 18 06/29/2024 1:24 PM SCHOOL PH[employer]GR[employer] DETAILER Oxygen Saturation 95% 06/29/2024 1:24 PM SCHOOL PH[employer]GR[employer] DETAILER Inhaled Oxygen Concentration - - Weight 88 kg (194 lb) 11/04/2024 9:23 AM CDT Height 160 cm (5' 2.99 ) 10/04/2023 8:45 PM CDT Body Mass Index 34.37 10/04/2023 8:45 PM CDT Plan of Treatment Not on file Goals Goal Patient Goal Type Associated Problems Recent Progress Patient-Stated? Author CCM Chronic Pain Care Plan Chronic Care Management No Ivette Briggs RN Note: Problem: Chronic Pain Goals: 1. Minimize further functional decline 2. Maximize quality of life 3. Control pain Strategies: - Activity/exercise program recommendation - Conservative stepwise pain medicine strategy with multi-disciplinary approach - Recommend healthy lifestyle strategies and compensatory methods as needed Reduce the likelihood of falling Lifestyle No Ivette Briggs RN Note: Below are four things you can do to prevent falls: Begin an exercise program to improve your leg strength & balance Ask your doctor or pharmacist to review your medicines Get annual eye check-ups & update your eyeglasses Make your home safer by: Removing clutter & tripping hazards Putting railings on all stairs & adding grab bars in the bathroom Having good lighting, especially on stairs Contact your local community or senior center for information on exercise, fall prevention programs, or options for improving home safety. Medical Devices Implanted Type Area Senior Electrical Controls Engineer Device Identifier Shelf Expiration Date Model / Serial / Lot Graft 1-4mm 90cc Bone Cancellous Frozen - [id number] - [id number] Implanted:Qty: 1 on 05/29/2020 at [facility] Bone N/A: Lumbar-S acral Spine [employer] 01/14/2025 [id number] / [id number] / Allosource [id number] Crushed Chip Frozen Graft 30ml Bone Cancellous - [id number] Implanted:Qty: 1 on 05/29/2020 at [facility] Bone N/A: Lumbar-S acral Spine Allosource 01/24/2025 [id number] / / [id number] Allergan [employer]sa [employer] 459z-Qu-14-T Implant Mammary Natrelle Te Smooth 573q-Wl-09-T With Fourte - [id number] - [id number] Implanted:Qty: 1 on 10/12/2019 by Alexsander Nj MD at [facility] Breast Right: Breast [employer] 05/24/2024 006P-JS-64-T / [id number] / [id number] Description:Checked manufact urer's website and these breast tissue expanders are labeled MRI Unsafe JL 03/14/2020 Allergan [employer] Inc Ssx-615 Natrelle Inspira Smooth Shell Surface Extra Full Profile Implant Latex Free - [id number] - [id number] Implanted:Qty: 1 on 12/21/2020 by Alexsander Nj MD at [facility] Breast Left: Breast [employer] [id number] 12/12/2024 SSX-615 / [id number] / [id number] Allergan [employer] Ssx-615 Natrelle Inspira Smooth Shell Surface Extra Full Profile Implant Latex Free - [id number] - [id number] Implanted:Qty: 1 on 12/21/2020 by Alexsander Nj MD at [facility] Breast Right: Breast [employer] [id number] 04/12/2024 SSX-615 / [id number] / [id number] Medtronic Inc Cage Spinal Lumbar Plif Expandable Long Catalyft 7mm Titanium [id number] - Sna - [id number] Implanted:Qty: 1 on 09/29/2023 by Nathan Clay MD at [facility] Cage N/A: Lumbar-S acral Spine Medtronic Inc [id number] 08/21/2031 [id number] / NA / [id number] Description:IMPLANT PAUSE PE RFORMED Medtronic Inc Kit Graft Bone Sponge Xlg Infuse 8cc Granules [id number] - Sna - [id number] Implanted:Qty: 1 on 09/29/2023 by Nathan Clay MD at [facility] Graft N/A: Lumbar-S acral Spine Medtronic Inc 12/12/2024 [id number] / NA / [id number] Description:IMPLANT PAUSE PE RFORMED Ac[employer] Inc Filler Bone Void Acupac Advanced Frozen 50cc [id number] - [id number] - [id number] Implanted:Qty: 1 on 09/29/2023 by Nathan Clay MD at [facility] Graft N/A: Lumbar-S acral Spine [employer] 11/29/2025 [id number] / [id number] / Description:IMPLANT PAUSE PE RFORMED [employer] Inc Tissue Bone Void Filler Acupac Plus 50cc [id number] - [id number] - [id number] Implanted:Qty: 1 on 09/29/2023 by Nathan Clay MD at [facility] Graft N/A: Lumbar-S acral Spine [employer] 11/30/2025 [id number] / [id number] / Description:IMPLANT PAUSE PE RFORMED Medtronic Inc Cd Horizon 5.5mm 500mm Line Straight Ananda Spinal Titanium [id number] - Sna - [id number] Implanted:Qty: 1 on 09/29/2023 by Nathan Clay MD at [facility] Other - see comments N/A: Lumbar-S acral Spine Medtronic Inc [id number] / NA / Description:IMPLANT PAUSE PE RFORMED Medtronic Sofamor Dane[place] [id number] Solera Cd Horizon 6.5mm 50mm Multiaxial Spine Screw Bone Cocr - [id number] Implanted:Qty: 4 on 05/29/2020 by Nathan Clay MD at [facility] Screw N/A: Lumbar-S acral Spine Medtronic Inc [id number] / / Medtronic Sofamor [place] [id number] Solera Cd Horizon 7.5mm 45mm Multiaxial Spine Screw Bone Cocr - [id number] Implanted:Qty: 2 on 05/29/2020 by Nathan Clay MD at [facility] Screw N/A: Lumbar-S acral Spine Medtronic Inc [id number] / / Medtronic Sofamor [place] [id number] Solera Cd Horizon 7.5mm 50mm Multiaxial Spine Screw Bone Cocr - [id number] Implanted:Qty: 2 on 05/29/2020 by Nathan Clay MD at [facility] Screw N/A: Lumbar-S acral Spine Medtronic Inc [id number] / / Medtronic Inc 8.5mm 50mm Multiaxial Spine Screw Bone [id number] - Sna - [id number] Implanted:Qty: 1 on 09/29/2023 by Nathan Clay MD at [facility] Screw N/A: Lumbar-S acral Spine Medtronic Inc [id number] / NA / Description:IMPLANT PAUSE PE RFORMED Medtronic Inc Solera Cd Horizon 5.5mm 50mm Multiaxial Spine Screw Bone Cocr [id number] - Sna - [id number] Implanted:Qty: 2 on 09/29/2023 by Nathan Clay MD at [facility] Screw N/A: Lumbar-S acral Spine Medtronic Inc [id number] / NA / Description:IMPLANT PAUSE PE RFORMED Medtronic Inc Solera Cd Horizon 6.5mm 50mm Multiaxial Spine Screw Bone Cocr [id number] - Sna - [id number] Implanted:Qty: 4 on 09/29/2023 by Nathan Clay MD at [facility] Screw N/A: Lumbar-S acral Spine Medtronic Inc [id number] / NA / Description:IMPLANT PAUSE PE RFORMED Medtronic Inc Solera Cd Horizon 7.5mm 50mm Multiaxial Spine Screw Bone Cocr [id number] - Sna - [id number] Implanted:Qty: 1 on 09/29/2023 by Nathan Clay MD at [facility] Screw N/A: Lumbar-S acral Spine Medtronic Inc [id number] / NA / Description:IMPLANT PAUSE PE RFORMED Medtronic Inc Cd Horizon Break Off Spinal Screw Set Titanium Nonsterile 5.5 Mm [id number] - Sna - [id number] Implanted:Qty: 18 on 09/29/2023 by Nathan Clay MD at [facility] Screw N/A: Lumbar-S acral Spine Medtronic Inc [id number] / NA / Description:IMPLANT PAUSE PE RFORMED Breast Implant Bilatera l: Breast Hardware N/A: Neck Cerapedics Inc 700-025 I Factor Allograft Putty Syringe Graft 2.5cc Bone - [id number] Implanted:Qty: 1 on 07/16/2018 by Anson Benjamin MD at [facility] Right: Lumbar-S acral Spine [employer]aped[employer] Inc 02/10/2021 700-025 / / [id number] Cerapedics Inc 700-025 I Factor Allograft Putty Syringe Graft 2.5cc Bone - Sn/A - [id number] Implanted:Qty: 1 on 07/16/2018 by Anson Benjamin MD at [facility] Left: Lumbar-S acral Spine [employer] Inc 02/10/2021 700-025 / N/A / [id number] [employer] Inc [id number] Magtrace Liquid Marker 10 Vial Carton - [id number] Implanted:Qty: 1 on 10/12/2019 by AftDarlene MD PhD at [facility] Right: Breast [employer] Inc 02/10/2020 [id number] / / [id number] Allergan Usa Inc 532z-Gb-26-T Implant Mammary Natrelle Te Smooth 900j-Za-39-T With Fourte - [id number] - [id number] Implanted:Qty: 1 on 10/12/2019 by Alexsander Nj MD at [facility] Left: Breast [employer] 02/29/2024 [id number]-T / [id number] / Description:Checked manufact urer's website and these breast tissue expanders are labeled MRI Unsafe JL 03/14/2020 Medtronic Inc [id number] 8.5mm 80mm Multiaxial Cannulated Thoracolumbar Screw Bone - [id number] Implanted:Qty: 2 on 05/29/2020 by Nathan Clay MD at [facility] N/A: Lumbar-S acral Spine Medtronic Inc [id number] / / Explanted Type Area Senior Electrical Controls Engineer Device Identifier Shelf Expiration Date Model / Serial / Lot Allergan Tissue Prepress Proofer Style Sfx 550cc Explanted:Qty: 1 on 12/21/2020 by Alexsander Nj MD at [facility] Breast Right: Breast [employer] / / [id number] Description:Implanted in Sep Allergan Tissue Prepress Proofer Sstyle Sfx 550cc Explanted:Qty: 1 on 12/21/2020 by Alexsander Nj MD at [facility] Breast Left: Breast [employer] / / [id number] Description:Iplanted September 12 020 Screw Set Streamline Tl Screw System - Sn/A - [id number] Implanted:Qty: 6 on 07/16/2018 by Anson Benjamin MD at [facility] Explanted:Qty: 6 on 05/29/2020 at [facility] Screw N/A: Lumbar-Sac ral Spine Rti [employer] Inc -SETSCREW / N/A / Screw 7.5mm X 35mm Srmlne Pedicle - [id number] Implanted:Qty: 2 on 07/16/2018 by Anson Benjamin MD at [facility] Explanted:Qty: 2 on 05/29/2020 at [facility] Screw N/A: Lumbar-Sac ral Spine Rti Surgical Inc -PA-75-35 / / Screw 7.5mm X 40mm Srmlne Pedicle - Sn/A - [id number] Implanted:Qty: 2 on 07/16/2018 by Anson Benjamin MD at [facility] Explanted:Qty: 2 on 05/29/2020 at [facility] Screw N/A: Lumbar-Sac ral Spine Rti [employer] Inc PA-75-40 / N/A / Screw 7.5mm X 45mm Srmlne Pedicle - Sn/A - [id number] Implanted:Qty: 1 on 07/16/2018 by Anson Benjamin MD at [facility] Explanted:Qty: 1 on 05/29/2020 at [facility] Screw N/A: Lumbar-Sac ral Spine Rti [employer] Inc 75-45 / N/A / Ananda Spinal Quantum Titanium L70 Mm Od5.5 Mm Prebent - Sn/A - [id number] Implanted:Qty: 2 on 07/16/2018 by Anson Benjamin MD at [facility] Explanted:Qty: 2 on 05/29/2020 at [facility] N/A: Lumbar-Sac ral Spine Rti [employer] Inc 10-55-NV-70 / N/A / Screw 7.5mm X 40mm Srmlne Pedicle Explanted:Qty: 1 on 05/29/2020 at [facility] N/A: Lumbar-Sac ral Spine Other Medtronic Sofamor Danek [id number] Cd Horizon Break Off Spinal Screw Set Titanium Nonsterile 5.5 Mm - [id number] Implanted:Qty: 12 on 05/29/2020 by Nathan Clay MD at [facility] Explanted:Qty: 12 on 09/29/2023 by Nathan Clay MD at [facility] N/A: Lumbar-Sac ral Spine Medtronic Inc [id number] / / Medtronic Sofamor [place]ane[place] [id number] Cd Horizon 5.5mm 500mm Line Straight Ananda Spinal Titanium - [id number] Implanted:Qty: 1 on 05/29/2020 by Nathan Clay MD at [facility] Explanted:Qty: 1 on 09/29/2023 by Nathan Clay MD at [facility] N/A: Lumbar-Sac ral Spine Medtronic Inc [id number] / / Procedures Procedure Name Priority Date/Time Associated Diagnosis Comments XR SCOLIOSIS 6 OR MORE VIEWS Schedule Routine, Read Routine (OP Routine) 11/04/2024 9:20 AM CDT Spinal stenosis of lumbar region with neurogenic claudication S/P spinal fusion HEPATITIS PANEL, ACUTE Routine 11/03/2019 1:18 PM CDT Malignant neoplasm of upper-outer quadrant of right breast in female, estrogen receptor negative (HCC) SCREENING MAMMOGRAM BILATERAL W JOSE R W IMPLANTS Schedule Routine, Read Routine (OP Routine) 07/28/2019 3:52 PM SCHOOL PHOTOGRAPHS DETAILER Encounter for screening mammogram for malignant neoplasm of breast from Last 3 Months or Most Recently Relevant to Health Maintenance Results * XR Scoliosis 6 or More Views (11/04/2024 9:20 AM CDT) Anatomical Region Laterality Modality Spine N/A Computed Radiogr aphy 11/04/2024 9:35 AM CDT Impressions 11/04/2024 10:33 AM CDT 1. Unchanged posterior instrumented fusion of T11 to the pelvis with anterior discectomy and interbody fusion of C4-C6, L1-L2, and L4-L5. Dictated by: Inder Hernandez M.D. The radiology attending physician has personally reviewed this study, and had reviewed and/or edited this written report and agrees with it. Electronically signed by: Jose Alfredo Morrow D.O. Narrative 11/04/2024 10:33 AM CDT EXAMINATION: XR SCOLIOSIS 6 OR MORE VIEWS HISTORY: Spinal fusion. FINDINGS: Standing frontal and lateral radiographs of the entire spine and lower extremities were obtained using the EOS system. An additional 4 radiographs of the lumbar spine are submitted for interpretation. Comparison is made with 06/03/2024. Bilateral total knee arthroplasties in expected position. There is posterior instrumented fusion of T11 to the pelvis with bilateral sacroiliac screws. Anterior discectomy and interbody fusion of C4-C6, as well as L1-L2 and L4-L5. The instrumentation appears intact. No periprosthetic osteolysis or fracture. There is leftward lean without significant scoliosis. Mild leftward coronal imbalance. No pelvic obliquity. There is anterior sagittal imbalance. Multilevel degenerative disc disease greatest and mild in the midthoracic spine. No vertebral body height loss. Procedure Note Jose Alfredo Morrow, DO - 11/04/2024 EXAMINATION: XR SCOLIOSIS 6 OR MORE VIEWS HISTORY: Spinal fusion. FINDINGS: Standing frontal and lateral radiographs of the entire spine and lower extremities were obtained using the EOS system. An additional 4 radiographs of the lumbar spine are submitted for interpretation. Comparison is made with 06/03/2024. Bilateral total knee arthroplasties in expected position. There is posterior instrumented fusion of T11 to the pelvis with bilateral sacroiliac screws. Anterior discectomy and interbody fusion of C4-C6, as well as L1-L2 and L4-L5. The instrumentation appears intact. No periprosthetic osteolysis or fracture. There is leftward lean without significant scoliosis. Mild leftward coronal imbalance. No pelvic obliquity. There is anterior sagittal imbalance. Multilevel degenerative disc disease greatest and mild in the midthoracic spine. No vertebral body height loss. IMPRESSION: 1. Unchanged posterior instrumented fusion of T11 to the pelvis with anterior discectomy and interbody fusion of C4-C6, L1-L2, and L4-L5. Dictated by: Inder Hernandez M.D. The radiology attending physician has personally reviewed this study, and had reviewed and/or edited this written report and agrees with it. Electronically signed by: Jose Alfredo Morrow D.O. Nathan Clay MD IMG XR PROCEDURES Isi l Result * Hepatitis panel, acute (11/03/2019 1:18 PM CDT) Hep A IgM Nonreactive Nonreactive [facility] Comment: Interpretive Data: If Hep A IgM Ab is reported as Equivocal, a new sample should be drawn in two weeks for testing. Current interpretive data was last revised on 19. Hep B core IgM Nonreactive Nonreactive [facility] Comment: Interpretive Data If HepB Core IgM Ab is reported as Equivocal, a new sample should be drawn in two weeks for testing. Current interpretive data was last revised on 19. Hep C Ab Nonreactive [facility] HepBsAg Nonreactive Nonreactive [facility] Blood specimen (specimen) 11/03/2019 1:18 PM CDT 11/03/2019 2:07 PM CDT us Aime Cowart MD LAB MICROBIO LOGY - GENERAL ORDERABLES Edited Result - Final [facility] [place] [address] * Screening Mammogram Bilateral w Jose R w Implants (07/28/2019 3:52 PM SCHOOL PHOTOGRAPHS DETAILER) Anatomical Region Laterality Modality Breast Bilateral Mammography Narrative 07/29/2019 7:48 AM SCHOOL PHOTOGRAPHS DETAILER Mammogram Technique: Bilateral Digital Breast Tomosynthesis, Bilateral C-view 2D Screening mammogram. Views obtained: bilateral craniocaudal; bilateral craniocaudal implant displaced; bilateral mediolateral oblique; and bilateral mediolateral oblique implant displaced. Computer Aided Detection was performed. Mammogram Findings: The present examination has been compared to prior imaging studies performed at [facility] on 09/11/2016, 09/17/2017 and 05/12/2018. There are scattered areas of fibroglandular density. There are bilateral sub-pectoral silicone gel implants. There are amorphous calcifications with associated developing asymmetry in the upper outer quadrant of the right breast. There is no suspicious abnormality in the left breast. Impression: Calcifications in the right breast require additional evaluation. Additional views are recommended. OVERALL FINAL ASSESSMENT: BI-RADS CATEGORY 0: Incomplete: Need additional imaging evaluation. Procedure Note Brittaney Delgadillo MD - 07/29/2019 Mammogram Technique: Bilateral Digital Breast Tomosynthesis, Bilateral C-view 2D Screening mammogram. Views obtained: bilateral craniocaudal; bilateralcraniocaudal implant displaced; bilateral mediolateral oblique; and bilateral mediolateral oblique implant displaced. Computer Aided Detection was performed. Mammogram Findings: The present examination has been compared to prior imaging studies performed at [facility] on 09/11/2016, 09/17/2017 and 05/12/2018. There are scattered areas of fibroglandular density. There are bilateral sub-pectoral silicone gel implants. There are amorphous calcifications with associated developing asymmetryin the upper outer quadrant of the right breast. There is no suspicious abnormality in the left breast. Impression: Calcifications in the right breast require additional evaluation. Additional views are recommended. OVERALL FINAL ASSESSMENT: BI-RADS CATEGORY 0: Incomplete: Need additional imaging evaluation. us Self Screening Mammogram IMG MAMMO PROCEDURES Fi nal Result from Last 3 Months or Most Recently Relevant to Health Maintenance Insurance [employer] [facility] BLUE ACCESS OOS ANTHEM ACCESS BLUE ACCESS OOS [employer] OOS Advance Directives For more information, please contact: [phone] * Full Code (Latest Code Status on File) Date Activated Date Inactivated Comments 10/04/2023 8:36 PM 10/08/2023 7:01 PM * Full Code Date Activated Date Inactivated Comments 09/29/2023 3:39 PM 10/02/2023 5:38 PM * Full Code Date Activated Date Inactivated Comments 05/29/2020 11:19 AM 06/02/2020 6:24 PM * Full Code Date Activated Date Inactivated Comments 10/12/2019 1:21 PM 10/13/2019 3:19 PM * Full Code Date Activated Date Inactivated Comments 07/12/2018 10:20 PM 07/30/2018 5:29 PM Care Teams Sample Maker Original Relationship Specialty Start Date End Date Anson Reed DO PCP - General 09/11/16 Alexs[place] Jr[place] MD [address] [address] Consulting Physician Pulmonary Disease 07/30/18
--- OUTSIDE RECORDS SUMMARY | 2024-11-11 10:39 | XMS_ITS | Clinical Summary ---
Author Organization [facility] Address [address] [place] [address] Care Team Providers Care Obiee Architect Name Role Phone Unavailable Primary Care Provider Unavailabl e Source Comments [facility],non-owned Affiliates and Associated Physician Practices is amultiple site organization consisting of ambulatory clinics and hospital sitesin [place], [place], [place] and [place]. This disclosure is being madepursuant to the Care Everywhere program and may not contain all information available regarding this patient. Last updated 18.[facility] Social History Tobacco Use Types Packs/Day Years Used Date Smoking Tobacco: Never Assessed Comments Unknown Sex and Gender Information Value Date Recorded Sex Assigned at Not on file Legal Sex Female 9:43 AM [employer]ER[employer] Gender Identity Not on file Sexual Orientation Not on file Plan of Treatment Health Maintenance Due Date Last Done Comments COLOGUARD (AGES 45-75) - COL ON CA SCREENING 1960 COLON MONITORING 1960 COLONOSCOPY - COLON CA SCREENING 1960 CT COLONOGRAPHY - COLON CA SCREENING 1960 Colorectal Cancer Screening 1960 FIT - COLON CA SCREENING 1960 FLEX SIG - COLON CA SCREENING 1960 LIPID TESTING 1960 MAMMOGRAM 1960 HIV SCREENING 02/06/1975 HEPATITIS C SCREENING 02/02/1978 DTAP/TDAP/TD VACCINES (1 - Tdap) 02/06/1979 PNEUMOCOCCAL VACCINE 50+ (1 of 1 - PCV) 02/06/2010 ZOSTER VACCINE (1 of 2) 02/06/2010 COVID-19 VACCINE ( - 2023-2 5 season) 2024 DEPRESSION SCREENING 07/14/2024 INFLUENZA VACCINE (Season Ended) 2025 Respiratory Syncytial Virus (RSV) Vaccine Pt: or over 60 yrs (1 - 1-dose 75+ series) 02/06/2035 HEPATITIS B VACCINE Aged Out No longe r eligible based on patient's age to complete this topic HIB VACCINE Aged Out No longer eligi ble based on patient's age to complete this topic HPV VACCINE Aged Out No longer eligi ble based on patient's age to complete this topic MENINGOCOCCAL (Group B) VACC INE SHARED DECISION-MAKING Aged Out No longer eligibl e based on patient's age to complete this topic MENINGOCOCCAL GROUPS A/C/Y/W VACCINE Aged Out No longer eligible b ased on patient's age to complete this topic
--- OUTSIDE RECORDS SUMMARY | 2024-11-11 10:39 | XMS_ITS ---
Author Organization [facility] Address [address] [place] [address] Care Team Providers Care Build Engineer Name Role Phone Anson Reed DO Primary Care Provider [phone] Raul Gardner MD, [facility]. Unavailable [phone] Active Problems Problem Noted Date Diagnosed Date [...] L1-2 Posterior Lumbar Laminectomy, L1-L2 TLIF, Revision [id number] Posterior Spinal Fusion with Instrumentation with ortho [...] (10/26/2020): Added automatically from request for surgery [id number] Hypertension 05/25/2020 Assessment & Plan (10/04/2023 9:39 [...] breast changes 05/12/2018 Leukocytosis Left elbow pain Current Treatment and Therapy Plans No current plan information found. Past Treatment and Therapy Plans Oncology Chemotherapy Treatment Plan Name Start Date Discontinue Date Treatment Medications Discontinue Reason Plan Provider Cycles TC: (DOCEtaxe l / Cyclophos phamide) 21 Day Cycles - Breast 0 05/02/2020 cycloPHOSphamide (CYTOXAN) IVPB (vial 20 mg/mL) ([id number])DOCEtaxel (TAXOTERE) IVPB in 250 mL (vial 10mg/mL) Therapy Complete Aime Cowart MD 4 of 4 cycles started Lifetime Dose Tracking * Chemical Lifetime Dose Automatic Entry Manual Entr y Fluoro Time 2.782 minutes 2.782 minutes 0 minutes cyclophosphamide 2,397.021 mg/m2 (4,608 mg) 2,397.021 mg/m2 (4,608 mg) 0 mg/m2 (0 mg) Air kerma at the reference point (Ka,r) 43.07 mGy 43.07 mGy 0 mGy DLP 2,383 mGycm 2,383 mGycm 0 mGycm Resolved Problems Problem Noted Date Diagnosed Date Resolved Date RSV (respiratory syncytial virus pneumonia) 07/19/2018 10/04/2023 Left wrist pain 07/30/2018 Urinary tract infection without hematuria 07/18/2018
--- OUTSIDE RECORDS SUMMARY | 2024-11-11 10:39 | XMS_ITS | Clinical Summary ---
Author Organization [facility] Address [address] [place] [address] Care Team Providers Care Glazier Apprentice Name Role Phone Anson Reed DO Primary Care Provider [phone] Raul Gardner MD, [facility] Unavailable [phone] Allergies Active Allergy Reactions Criticality Noted Date [...] morning Active calcium carb/D3/magnesi um/zinc (calcium carb-D3-mag [id number]) [phone] az-cbhk-de-mg tabletIndicatio ns:Vitamin Deficiency Prevention Take 1 tablet [...] L1-2 Posterior Lumbar Laminectomy, L1-L2 TLIF, Revision [id number] Posterior Spinal Fusion with Instrumentation with ortho [...] (10/26/2020): Added automatically from request for surgery [id number] Hypertension 05/25/2020 Assessment & Plan (10/04/2023 9:39 [...] 07/30/2018 Urinary tract infection without hematuria 07/18/2018 Encounters Date Type Department Care Team Description 11/04/2024 9:15 AM CDT Office Visit [facility] Orthopaedic Surgery [address] [place] [address] Office [facility] [address] [place] [phone] Nathan Clay MD Spinal stenosis of lumbar region with neurogenic claudication (Primary Dx); History of total bilateral knee replacement; Acute pain of right knee 11/04/2024 8:45 AM CDT - 11/04/2024 11:59 PM CDT Hospital Encounter [facility] [address] [place] [address] [address] [place] [phone] Spinal stenosis of lumbar region with neurogenic claudication; S/P spinal fusion Discharge Disposition: Discharge to home or self care 10/04/2024 Orders Only [facility] Orthopaedic Surgery [address] [place] [address] Medical Office Building [address] [place] [address] Nathan Clay MD S/P spinal fusion (Primary Dx); Spinal stenosis of lumbar region with neurogenic claudication 10/04/2024 Orders Only [facility] Orthopaedic Surgery [address] [facility] Office Building [address] [place] [phone] Nathan Clay MD S/P spinal fusion (Primary Dx); Spinal stenosis of lumbar region with neurogenic claudication 10/01/2024 Orders Only [facility] Orthopaedic Surgery [facility] Office Building [address] [place] [phone] Nathan Clay MD Spinal stenosis of lumbar region with neurogenic claudication (Primary Dx); S/P spinal fusion 08/27/2024 Orders Only [facility] Oncology [address] [place] [address] Jennifer Hsu, BLAYNE 08/26/2024 Orders Only [facility] Oncology [address] [place] [address] Jennifer Hsu, BLAYNE from Last 3 Months Immunizations Immunization Administration Dates Next Due Influenza, Quadrivalent, Marcia l Culture-based MDCK, Antibiotic Free, Intramuscular 06/23/2018 Influenza, Quadrivalent, Marcia l Culture-based MDCK, Preservative Free, Antibiotic Free, Intramuscular 04/24/2021 Influenza, Quadrivalent, Spl it, Preservative Free, Intramuscular 05/29/2020,06/29/2019 Influenza, Unspecified 04/13/2019 Surgical History Surgery Date Site/Laterality Comments EPIDURAL INJECTION LUMBOSACRAL 05/31/2015 N/A EPIDURAL INJECTION LUMBOSACRAL 02/08/2014 N/A EPIDURAL INJECTION LUMBOSACRAL 12/01/2013 N/A HYSTERECTOMY 07/14/1987 - 07/13/1988 CHOLECYSTECTOMY 1990's TOTAL KNEE ARTHROPLASTY 07/14/2013 - 07/13/2014 Left BREAST SURGERY 07/14/2010 - 07/13/2011 implants TOTAL KNEE ARTHROPLASTY 07/14/2006 - 07/13/2007 Right CERVICAL FUSION 07/14/2011 - 07/13/2012 C4-C6 BREAST BIOPSY 08/11/2019 Right BREAST MASS EXCISION 07/14/2015 - 07/13/2016 Right LUMBAR FUSION 06/13/2018 - 07/13/2018 x3 LUMBAR FUSION 07/16/2018 re-do BACK SURGERY GA ARTHRP KNE CONDYLE&PLATU MEDIAL&LAT COMPARTMENTS Bilateral SPINAL FUSION 09/29/2023 Revision PSF L2-S1 Medical History Medical History Date Comments Hypertension Back pain Arthritis Cancer (HCC) Peripheral neuropathy Osteoporosis Pneumonia History of transfusion History of chemotherapy 12/2019 breast c ancer Family History * Patient is adopted Medical History Relation Name Comments Anesthesia problems Neg Hx Social History Tobacco Use Types Packs/Day Years [...] on file Legal Sex Female 10:23 AM POOL PLAYER Gender Identity Not on file Sexual Orientation Not on file Obstetrics History Last Filed Vital Signs Vital Sign Reading Time Taken Comments Blood Pressure 146/86 06/29/2024 1:24 PM POOL PLAYER Pulse 96 06/29/2024 1:24 PM POOL PLAYER Temperature 36.7 C (98.1 F) 06/29/2024 1:24 PM POOL PLAYER Respiratory Rate 18 06/29/2024 1:24 PM POOL PLAYER Oxygen Saturation 95% 06/29/2024 1:24 PM POOL PLAYER Inhaled Oxygen Concentration - - Weight 88 kg (194 lb) 11/04/2024 9:23 AM CDT Height 160 cm (5' 2.99 ) 10/04/2023 8:45 PM CDT Body Mass Index 34.37 10/04/2023 8:45 PM CDT Plan of Treatment Health Maintenance Due Date Last Done Comments Colon Cancer Screening-Colonoscopy 1960 Depression Screening 1960 DTaP/Tdap/Td Vaccine (1 - Tdap) 02/06/1971 Hepatitis B Screening 02/06/1978 Regular Well Visit/Exam 18-64 02/06/1978 Zoster Vaccine (1 of 2) 02/06/2010 Breast Cancer Screening-Mammogram 07/28/2020 07/28/2019, 07/28/2019, 09/17/2017, Additional history exists Influenza Vaccine (Season Ended) 2025 04/24/2021, 05/29/2020, 06/29/2019, Additional history exists Hepatitis C Screening Completed 11/03/2019 Pneumococcal vaccine <65 Aged Out No longer eligible based on patient's age to complete this topic Goals Goal Patient Goal Type Associated Problems [...] home safety. Medical Devices Implanted Type Area Alcohol Still Operator Device Identifier Shelf Expiration Date Model / Serial / Lot Graft 1-4mm 90cc Bone Cancellous Frozen - [id number] - [id number] Implanted:Qty: 1 on 05/29/2020 at [facility] Bone N/A: Lumbar-S acral Spine [employer] 01/14/2025 [id number] / [id number] / Allosource [id number] Crushed Chip Frozen Graft 30ml Bone Cancellous - [id number] Implanted:Qty: 1 on 05/29/2020 at [facility] Bone N/A: Lumbar-S acral Spine Allosource 01/24/2025 [id number] / / [id number] Allergan Usa Inc 350h-Vz-78-T Implant Mammary Natrelle Te Smooth 036c-Ni-45-T With Fourte - [id number] - [id number] Implanted:Qty: 1 on 10/12/2019 by Alexsander Nj MD at [facility] Breast Right: Breast Allergan Usa Inc 05/24/2024 171L-DS-28-T / [id number] / [id number] Description:Checked manufact urer's website and these breast tissue expanders are labeled MRI Unsafe JL 03/14/2020 Allergan Usa Inc Ssx-615 Natrelle Inspira Smooth Shell Surface Extra Full Profile Implant Latex Free - [id number] - [id number] Implanted:Qty: 1 on 12/21/2020 by Alexsander Nj MD at [facility] Breast Left: Breast Allergan [employer] Inc [id number] 12/12/2024 SSX-615 / [id number] / [id number] Allergan Usa Inc Ssx-615 Natrelle Inspira Smooth Shell Surface Extra Full Profile Implant Latex Free - [id number] - [id number] Implanted:Qty: 1 on 12/21/2020 by Alexsander Nj MD at [facility] Breast Right: Breast [employer]ergan [employer] Inc [id number] 04/12/2024 SSX-615 / [id number] / [id number] Medtronic Inc Cage Spinal Lumbar Plif Expandable Long Catalyft 7mm Titanium [id number] - Sna - [id number] Implanted:Qty: 1 on 09/29/2023 by Nathan Clay MD at [facility] Cage N/A: Lumbar-S acral Spine Medtronic Inc [id number] 08/21/2031 [id number] / NA / [id number] Description:IMPLANT PAUSE PE RFORMED Medtronic Inc Kit Graft Bone Sponge Xlg Infuse 8cc Granules [id number] - Sna - [id number] Implanted:Qty: 1 on 09/29/2023 by Nathan Clay MD at [facility] Graft N/A: Lumbar-S acral Spine Medtronic Inc 12/12/2024 [id number] / NA / [id number] Description:IMPLANT PAUSE PE RFORMED Acuity Surgical Inc Filler Bone Void Acupac Advanced Frozen 50cc 90-[id number] - [id number] - [id number] Implanted:Qty: 1 on 09/29/2023 by Nathan Clay MD at [facility] Graft N/A: Lumbar-S acral Spine [employer]uity [employer] Inc 11/29/2025 [id number] / [id number] / Description:IMPLANT PAUSE PE RFORMED Acuity [employer] Inc Tissue Bone Void Filler Acupac Plus 50cc [id number] - [id number] - [id number] Implanted:Qty: 1 on 09/29/2023 by Nathan Clay MD at [facility] Graft N/A: Lumbar-S acral Spine [employer] Inc 11/30/2025 [id number] / [id number] / Description:IMPLANT PAUSE PE RFORMED Medtronic Inc Cd Horizon 5.5mm 500mm Line Straight Ananda Spinal Titanium [id number] - Sna - [id number] Implanted:Qty: 1 on 09/29/2023 by Nathan Clay MD at [facility] Other - see comments N/A: Lumbar-S acral Spine Medtronic Inc [id number] / NA / Description:IMPLANT PAUSE PE RFORMED Medtronic Sofamor Danek [id number] Solera Cd Horizon 6.5mm 50mm Multiaxial Spine Screw Bone Cocr - [id number] Implanted:Qty: 4 on 05/29/2020 by Nathan Clay MD at [facility] Screw N/A: Lumbar-S acral Spine Medtronic Inc [id number] / / Medtronic Sofamor Danek [id number] Solera Cd Horizon 7.5mm 45mm Multiaxial Spine Screw Bone Cocr - [id number] Implanted:Qty: 2 on 05/29/2020 by Nathan Clay MD at [facility] Screw N/A: Lumbar-S acral Spine Medtronic Inc [id number] / / Medtronic Sofamor Danek [id number] Solera Cd Horizon 7.5mm 50mm Multiaxial Spine Screw Bone Cocr - [id number] Implanted:Qty: 2 on 05/29/2020 by Nathan Clay MD at [facility] Screw N/A: Lumbar-S acral Spine Medtronic Inc [id number] / / Medtronic Inc 8.5mm 50mm Multiaxial Spine Screw Bone [id number] - Sna - [id number] Implanted:Qty: 1 on 09/29/2023 by Nathan Clay MD at [facility] Screw N/A: Lumbar-S acral Spine Medtronic Inc [id number] / NA / Description:IMPLANT PAUSE PE RFORMED Medtronic Inc Solera Cd Horizon 5.5mm 50mm Multiaxial Spine Screw Bone Cocr [id number] - Sna - [id number] Implanted:Qty: 2 on 09/29/2023 by Nathan Clay MD at [facility] Screw N/A: Lumbar-S acral Spine Medtronic Inc [id number] / NA / Description:IMPLANT PAUSE PE RFORMED Medtronic Inc Solera Cd Horizon 6.5mm 50mm Multiaxial Spine Screw Bone Cocr [id number] - Sna - [id number] Implanted:Qty: 4 on 09/29/2023 by Nathan Clay MD at [facility] Screw N/A: Lumbar-S acral Spine Medtronic Inc [id number] / NA / Description:IMPLANT PAUSE PE RFORMED Medtronic Inc Solera Cd Horizon 7.5mm 50mm Multiaxial Spine Screw Bone Cocr [id number] - Sna - [id number] Implanted:Qty: 1 on 09/29/2023 by Nathan Clay MD at [facility] Screw N/A: Lumbar-S acral Spine Medtronic Inc [id number] / NA / Description:IMPLANT PAUSE PE RFORMED Medtronic Inc Cd Horizon Break Off Spinal Screw Set Titanium Nonsterile 5.5 Mm [id number] - Sna - [id number] Implanted:Qty: 18 on 09/29/2023 by Nathan Clay MD at [facility] Screw N/A: Lumbar-S acral Spine Medtronic Inc [id number] / NA / Description:IMPLANT PAUSE PE RFORMED Breast Implant Bilatera l: Breast Hardware N/A: Neck Cerapedics Inc 700-025 I Factor Allograft Putty Syringe Graft 2.5cc Bone - [id number] Implanted:Qty: 1 on 07/16/2018 by Anson Benjamin MD at [facility] Right: Lumbar-S acral Spine Cerapedics Inc 02/10/2021 700-025 / / [id number] Cerapedics Inc 700-025 I Factor Allograft Putty Syringe Graft 2.5cc Bone - Sn/A - [id number] Implanted:Qty: 1 on 07/16/2018 by Anson Benjamin MD at [facility] Left: Lumbar-S acral Spine Cerapedics Inc 02/10/2021 700-025 / N/A / [id number] Devicor Medical Products Inc [id number] Magtrace Liquid Marker 10 Vial Carton - [id number] Implanted:Qty: 1 on 10/12/2019 by Darlene Schroeder MD PhD at [facility] Right: Breast [employer] Inc 02/10/2020 [id number] / / [id number] Allergan Usa Inc 865g-Cj-25-T Implant Mammary Natrelle Te Smooth 712s-Cr-55-T With Fourte - [id number] - [id number] Implanted:Qty: 1 on 10/12/2019 by Alexsander Nj MD at [facility] Left: Breast Allergan Usa Inc 02/29/2024 887D-QL-54-T / [id number] / Description:Checked manufact urer's website and these breast tissue expanders are labeled MRI Unsafe JL 03/14/2020 Medtronic Inc [id number] 8.5mm 80mm Multiaxial Cannulated Thoracolumbar Screw Bone - [id number] Implanted:Qty: 2 on 05/29/2020 by Nathan Clay MD at [facility] N/A: Lumbar-S acral Spine Medtronic Inc [id number] / / Explanted Type Area Alcohol Still Operator Device Identifier Shelf Expiration Date Model / Serial / Lot Allergan Tissue Sales Representative Health Insurance Style Sfx 550cc Explanted:Qty: 1 on 12/21/2020 by Alexsander Nj MD at [facility] Breast Right: Breast Allergan Usa Inc / / [id number] Description:Implanted in Sep Allergan Tissue Sales Representative Health Insurance Sstyle Sfx 550cc Explanted:Qty: 1 on 12/21/2020 by Alexsander Nj MD at [facility] Breast Left: Breast Allergan Usa Inc / / [id number] Description:Iplanted September 12 020 Screw Set Streamline Tl Screw System - Sn/A - [id number] Implanted:Qty: 6 on 07/16/2018 by Anson Benjamin MD at [facility] Explanted:Qty: 6 on 05/29/2020 at [facility] Screw N/A: Lumbar-Sac ral Spine Rti Surgical Inc -SETSCREW / N/A / Screw 7.5mm X 35mm Srmlne Pedicle - [id number] Implanted:Qty: 2 on 07/16/2018 by Anson Benjamin MD at [facility] Explanted:Qty: 2 on 05/29/2020 at [facility] Screw N/A: Lumbar-Sac ral Spine Rti Surgical Inc -PA-75-35 / / Screw 7.5mm X 40mm Srmlne Pedicle - Sn/A - [id number] Implanted:Qty: 2 on 07/16/2018 by Anson Benjamin MD at [facility] Explanted:Qty: 2 on 05/29/2020 at [facility] Screw N/A: Lumbar-Sac ral Spine Rti Surgical Inc -PA-75-40 / N/A / Screw 7.5mm X 45mm Srmlne Pedicle - Sn/A - [id number] Implanted:Qty: 1 on 07/16/2018 by Anson Benjamin MD at [facility] Explanted:Qty: 1 on 05/29/2020 at [facility] Screw N/A: Lumbar-Sac ral Spine Rti Surgical Inc 01-PA-75-45 / N/A / Ananda Spinal Quantum Titanium L70 Mm Od5.5 Mm Prebent - Sn/A - [id number] Implanted:Qty: 2 on 07/16/2018 by Anson Benjamin MD at [facility] Explanted:Qty: 2 on 05/29/2020 at [facility] N/A: Lumbar-Sac ral Spine Rti Surgical Inc 10-55-GA-70 / N/A / Screw 7.5mm X 40mm Srmlne Pedicle Explanted:Qty: 1 on 05/29/2020 at [facility] N/A: Lumbar-Sac ral Spine Other Medtronic Sofamor Danek [id number] Cd Horizon Break Off Spinal Screw Set Titanium Nonsterile 5.5 Mm - [id number] Implanted:Qty: 12 on 05/29/2020 by Nathan Clay MD at [facility] Explanted:Qty: 12 on 09/29/2023 by Nathan Clay MD at [facility] N/A: Lumbar-Sac ral Spine Medtronic Inc [id number] / / Medtronic Sofamor Danek [id number] Cd Horizon 5.5mm 500mm Line Straight Ananda Spinal Titanium - [id number] Implanted:Qty: 1 on 05/29/2020 by Nathan Clay MD at [facility] Explanted:Qty: 1 on 09/29/2023 by Nathan Clay MD at [facility] N/A: Lumbar-Sac ral Spine Medtronic Inc [id number] / / Procedures Procedure Name Priority Date/Time [...] Read Routine (OP Routine) 07/28/2019 3:52 PM POOL PLAYER Encounter for screening mammogram for malignant neoplasm [...] body height loss. Procedure Note Jose Alfredo Morrow DO - 11/04/2024 EXAMINATION: XR SCOLIOSIS 6 [...] Electronically signed by: Jose Alfredo Morrow D.O. us Nathan Clay MD IMG XR PROCEDURES Isi l Result * Hepatitis panel, acute (11/03/2019 1:18 PM CDT) Hep A IgM Nonreactive Nonreactive [facility] Comment: Interpretive Data: If Hep A IgM Ab is reported as Equivocal, a new sample should be drawn in two weeks for testing. Current interpretive data was last revised on 19. Hep B core IgM Nonreactive Nonreactive [facility] Comment: Interpretive Data If HepB Core IgM Ab is reported as Equivocal, a new sample should be drawn in two weeks for testing. Current interpretive data was last revised on 19. Hep C Ab Nonreactive Nonreactive [facility] HepBsAg Nonreactive Nonreactive [facility] Blood specimen (specimen) 11/03/2019 1:18 PM CDT 11/03/2019 2:07 PM CDT us Aime Cowart MD LAB MICROBIO LOGY - GENERAL ORDERABLES Edited Result - Final [facility] Department [place] [address] * Screening Mammogram Bilateral w Jose R w Implants (07/28/2019 3:52 PM POOL PLAYER) Anatomical Region Laterality Modality Breast Bilateral Mammography Narrative 07/29/2019 7:48 AM POOL PLAYER Mammogram Technique: Bilateral Digital Breast Tomosynthesis, Bilateral C-view 2D Screening mammogram. Views obtained: bilateral craniocaudal; bilateral craniocaudal implant displaced; bilateral mediolateral oblique; and bilateral mediolateral oblique implant displaced. Computer Aided Detection was performed. Mammogram Findings: The present examination has been compared to prior imaging studies performed at [facility] on 09/11/2016, 09/17/2017 and 05/12/2018. There are [...] compared to prior imaging studies performed at [facility] on 09/11/2016, 09/17/2017 and 05/12/2018. There are [...] Most Recently Relevant to Health Maintenance Insurance GetGoing [facility]OS [facility] [place] BL[place] ACCESS OOS ANTHEM ACCESS BLUE ACCESS OOS BLUE ACCESS OOS Advance Directives For more information, please contact: [phone] * Full Code (Latest Code Status on [...] 10:20 PM 07/30/2018 5:29 PM Care Teams Glazier Apprentice Relationship Specialty Start Date End Date Anson Reed DO PCP - General 09/11/16 Alexsander Carter Jr., MD [address] [place] [address] Consulting Physician Pulmonary Disease 07/30/18
--- OUTSIDE RECORDS SUMMARY | 2024-11-11 10:39 | XMS_ITS | Clinical Summary ---
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 Gender Identity Not on file Sexual Orientation Not on file Plan of Treatment Health Maintenance Due Date Last Done Comments Cervical Cancer Screening Pa p Smear (Age 30 to 64) Every 3 Years 1960 Colorectal Cancer Screening Colonoscopy (10 Years) 1960 Annual Physical 02/06/1963 Hepatitis C 02/06/1978 DTaP, Tdap and Td Vaccines ( 1 - Tdap) 02/06/1979 Cervical Cancer Screening Pa p with HPV Testing (Age 30 to 64) Every 5 Years 02/06/1990 Cervical Cancer Screening with HPV 02/06/1990 Mammogram Screening 2000 Pneumococcal Vaccine: 50+ Ye ars (1 of 1 - PCV) 02/06/2010 Zoster Vaccines (1 of 2) 02/06/2010 COVID-19 Vaccine ( - 2023-2 5 season) 2024 RSV Immunization or 60+ Years (1 - 1-dose 75+ series) 02/06/2035 Meningococcal B Vaccine Aged Out No l onger eligible based on patient's age to complete this topic Meningococcal Vaccine Aged Out No lisandra delon eligible based on patient's age to complete this topic RSV Immunizations Under 20 Months Aged Out No longer eligible based on patient's age to complete this topic Insurance [employer] Care Teams Armature Repairer Relationship Specialty Start Date End Date Anson Reed DO [address] [place] [address] PCP - General INTERNAL MEDICINE 04/16/19
--- OUTSIDE RECORDS SUMMARY | 2024-11-11 10:39 | XMS_ITS | Encounter Summary ---
Author Organization [facility] Address [address] [place] [address] Phone Care Team Providers Care Stone Carriage Operator Name Role Phone Anson Reed DO Primary Care Provider [phone] Raul Gardner MD, [facility]. Unavailable [phone] Anson Benjamin MD Unavailable [phone] Samir Frederick MD Unavailable [phone] Encounter Details Date Type Department Care Team (Late st Contact Info) Description 10/22/2019 Orders Only [facility] Oncology [address] [facility] Advanced Medicine 7th [place] [address] [place] [address] Aime Cowart MD [address] [facility] [address] [place] [address] Social History Tobacco Use Types Packs/Day Years Used Date Smoking Tobacco: Never Smokeless Tobacco: Never Alcohol Use Standard Drinks/Week Comments Yes 0 (1 standard drink = 0.6 oz pur e alcohol) AUDIT-C Answer Date Recorded Q1: How often do you have a drink containing alc ohol? 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 No / Unsure 10/11/2019 11:39 AM CDT documented as of this encounter Plan of Treatment Not on file documented as of this encounter Visit Diagnoses Not on filedocumented in this encounter Additional Health Concerns Infection Onset Date Last Indicated Resolved Time COVID: Recovered Comment:Pt tested COVID+ 04/03/20. Meets criteria to be COVID: Recovered Becka Macedo 05/16/2020 05/16/2020 05/16/2020 08/03/2020 3:[address] documented as of this encounter Care Teams Stone Carriage Operator Relationship Specialty Start Date End Date Anson Reed DO PCP - General 09/11/16 Alexsander Carter Jr., MD [address] [place] [address] Consulting Physician Pulmonary Disease 07/30/18 Anson Benjamin MD [address] [place] [address] Consulting Physician Orthopedic Surgery 07/30/18 Samir Frederick MD [address] [place] [address] Referring Physician Pain Management 04/03/20 05/19/23 documented as of this encounter
[2024-11-11 19:22] LABS: Basophils Absolute Auto 0.1 K/mm3 (0.0-0.1); Basophils Percent Auto 0.8 % (0.2-1.2); Eosinophils Absolute Auto 0.1 K/mm3 (0-0.3); Eosinophils Percent Auto 1.1 % (0-4.4); Hematocrit 45.3 % (37.0-47.0); Hemoglobin 14.4 g/dL (12.0-15.0); Immature Granulocyte Absolute 0.04 K/mm3 (0.00-0.031); Immature Granulocyte Percent A 0.5 % (0-0.5); Lymphocytes Percent Auto 19.3 % (18.3-44.2); Mean Corpuscular HGB Conc 31.8 g/dl (32-36); Mean Corpuscular Hemoglobin 28.9 pg (26-34); Mean Platelet Volume 9.4 fl (7.4-10.4); Monocytes Absolute Auto 0.6 K/mm3 (0.1-0.6); Monocytes Percent Auto 6.4 % (2.6-8.5); Neutrophils Absolute Auto 6.3 K/mm3 (1.3-6.7); Neutrophils Percent Auto 71.9 % (45.5-73.1); Platelet Count Result 325 k/mm3 (150-375); Red Blood Count 4.98 M/mm3 (4.2-5.4); Red Cell Distribution Width 14.2 % (11.5-14.5); White Blood Count 8.8 K/mm3 (4.5-10.0)
[2024-11-11 21:07] LABS: Alanine Aminotransferase 29 U/L (6-35); Albumin Level 4.4 g/dL (3.5-5.1); Alkaline Phosphatase 96 U/L (38-126); Anion Gap 9 mmol/L (4-12); Aspartate Amino Transferase 47 U/L (14-36); Bilirubin,Total 0.3 mg/dL (0.2-1.3); Blood Urea Nitrogen 14 mg/dL (7-17); Calcium 9.4 mg/dL (8.4-10.2); Carbon Dioxide 30 mmol/L (22-30); Chloride 101 mmol/L (98-107); Cholesterol 241 mg/dL (0-200); Estimated Glomerular Filt Rate > 60; Glucose 78 mg/dL (65-110); HDL Direct 59 mg/dL; Potassium 4.6 mmol/L (3.4-5.0); Sodium 140 mmol/L (137-145); Triglycerides 222 mg/dL (<150)
[2024-11-11 21:18] LABS: LDL Cholesterol Direct 109 mg/dL
== END 2024-11-11 09:55 | disposition home or self-care (01) ==
LOC: ANHGOSHLAB 09:55
PROVIDERS: PCP Internal Medicine; Visit Provider Nurse Practitioner
DX: R53.83 Other fatigue (principal); F32.A Depression, unspecified; I10 Essential (primary) hypertension
CPT/HCPCS: 36415; 80053; 80061; 82306; 84443; 85025

== ENCOUNTER 2024-12-21 12:33 | Emergency (ER) | payer BC, SELFPAY ==
--- NOTE | ~2024-12-21 | CT_ITS ---
EXAMINATION: CT abdomen pelvis w con DATE: 12/21/2024 14:45 INDICATION: Abdominal pain TECHNIQUE: Computed tomography (CT) of the abdomen and pelvis was performed with 100 mL Omnipaque-350 intravenous contrast. Automated exposure control and iterative reconstruction technique were employe d. The dose-length product was 888.66 mGy-cm. COMPARISON: 02/04/2017 FINDINGS: Visualized lower lungs are clear. Heart size normal. No pericardial or pleural effusion. Partially vi sualized bilateral breast implants. Cholecystectomy clips at the gallbladder fossa. A few small splen ic calcifications consistent with old granulomatous disease. Liver, pancreas, bilateral adrenal gland s and kidneys are normal. Bladder is normal. The uterus is not identified and has likely been surgica lly resected. Bowels including the appendix are normal. No free intraperitoneal gas or fluid. No path ologically enlarged abdominal or pelvic lymphadenopathy. L3-L5 laminectomies with instrumented supervisor pipeline ior spinal fusion with bilateral vertical rods and pedicle screws extending from T11 through S1 as we ll as bilateral iliac screws. There is increased lucency surrounding the threads at the iliac side of the left iliac screw. There is also anterior spinal fusion with interbody fusion devices at L1-L2 an d L4-L5. Moderate lower thoracic spondylosis. IMPRESSION: 1. No acute intra-abdominal/pelvic process. Reviewed, dictated and finalized at location A.
[2024-12-21 12:41] VITALS: BP 171/97; PULSE 90; RESP 16; TEMP 36.4; O2SAT 97
[2024-12-21 12:55] LABS: Basophils Percent Auto 0.5 % (0.2-1.2); Eosinophils Absolute Auto 0.1 K/mm3 (0-0.3); Eosinophils Percent Auto 0.6 % (0-4.4); Hematocrit 42.2 % (37.0-47.0); Immature Granulocyte Absolute 0.05 K/mm3 (0.00-0.031); Immature Granulocyte Percent A 0.6 % (0-0.5); Lymphocytes Percent Auto 17.8 % (18.3-44.2); Mean Corpuscular HGB Conc 33.2 g/dl (32-36); Mean Corpuscular Hemoglobin 29.3 pg (26-34); Mean Corpuscular Volume 88.3 fl (80-100); Mean Platelet Volume 9.2 fl (7.4-10.4); Monocytes Absolute Auto 0.5 K/mm3 (0.1-0.6); Monocytes Percent Auto 6.3 % (2.6-8.5); Neutrophils Absolute Auto 6.2 K/mm3 (1.3-6.7); Neutrophils Percent Auto 74.2 % (45.5-73.1); Platelet Count Result 255 k/mm3 (150-375); Red Blood Count 4.78 M/mm3 (4.2-5.4); White Blood Count 8.4 K/mm3 (4.5-10.0)
[2024-12-21 13:11] LABS: Alanine Aminotransferase 35 U/L (6-35); Albumin Level 4.5 g/dL (3.5-5.1); Alkaline Phosphatase 119 U/L (38-126); Anion Gap 7 mmol/L (4-12); Aspartate Amino Transferase 42 U/L (14-36); Bilirubin,Total 0.7 mg/dL (0.2-1.3); Blood Urea Nitrogen 13 mg/dL (7-17); Calcium 9.4 mg/dL (8.4-10.2); Carbon Dioxide 30 mmol/L (22-30); Chloride 101 mmol/L (98-107); Estimated CRCL calculation 77 ml/min; Estimated Glomerular Filt Rate > 60; Glucose 103 mg/dL (65-110); Lipase 64 U/L (23-300); Potassium 3.9 mmol/L (3.4-5.0); Sodium 138 mmol/L (137-145); Total Protein 7.8 g/dL (6.3-8.2)
--- OUTSIDE RECORDS SUMMARY | 2024-12-21 13:23 | XMS_ITS | Encounter Summary ---
Author Organization [facility] Address [address] [place] [address] Phone Care Team Providers Care Lead Java J2Ee Developer Name Role Phone Anson Reed DO Primary Care Provider [phone] Raul Gardner MD, [facility]. 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 Gender Identity Not on file Sexual Orientation [...] documented as of this encounter Care Teams Lead Java J2Ee Developer Relationship Specialty Start Date End Date Anson Reed DO PCP - General 09/11/16 Alexsander Carter Jr., MD [address] [place] [address] Consulting Physician Pulmonary Disease 07/30/18 Anson Benjamin MD [address] [place] [address] Consulting Physician Orthopedic Surgery 07/30/18 Samir Frederick MD [address] [place] [address] Referring Physician Pain Management 04/03/20 05/19/23 documented as of this encounter
--- OUTSIDE RECORDS SUMMARY | 2024-12-21 13:23 | XMS_ITS | Clinical Summary ---
Author Organization [facility] Address [address] [place] [address] Care Team Providers Care Limb Driver Name Role Phone Unavailable Primary Care Provider Unavailabl e Source Comments [facility],non-owned Affiliates and Associated Physician Practices is amultiple site organization consisting of ambulatory clinics and hospital sitesin [place], [place], [place] and [place]. This disclosure is being madepursuant to the Care Everywhere program and may not contain all information available regarding this patient. Last updated 18.[facility] Social History Tobacco Use Types Packs/Day Years Used Date Smoking Tobacco: Never Assessed Comments Unknown Sex and Gender Information Value Date Recorded Sex Assigned at Not on file Legal Sex Female 9:43 AM DEMOLITIONIST Gender Identity Not on file Sexual Orientation [...]
--- OUTSIDE RECORDS SUMMARY | 2024-12-21 13:24 | XMS_ITS | Referral Summary ---
Author Organization [facility] Address [address] [place] [address] Care Team Providers Care Side Seam Envelope Machine Operator Name Role Phone Anson Reed DO Primary Care Provider [phone]- [phone] Raul Gardner MD, [facility] Encounters Date Type Department Care Team Description 11/15/[address] Medical Office Building [address] [place] [address] Arlene Mosqueda MD 11/15/2024 3:45 PM CDT Lab [facility] at [address] [phone] Osteopenia of left hip 11/15/2024 2:00 PM CDT Office Visit [address] Medical Office Building [address] [place] [phone] Arlene Mosqueda MD Osteopenia of left hip (Primary Dx) 11/15/2024 1:30 PM CDT Clinical Support [address] Medical Office Building [address] [place] [phone] Osteopenia of left hip (Primary Dx); Spinal stenosis of lumbar region with neurogenic claudication 11/11/2024 Orders Only [facility] Oncology [address] [facility] [address] [place] [address] Aime Cowart MD 11/04/2024 8:45 AM CDT - 11/04/2024 11:59 PM CDT Hospital Encounter [facility] [address] [place] [address] [address] [place] [phone] Spinal stenosis of lumbar region with neurogenic claudication; S/P spinal fusion Discharge Disposition: Discharge to home or self care 11/04/2024 9:15 AM CDT Office Visit [facility] Orthopaedic Surgery [address] [place] [address] Medical Office [facility] [address] [place] [address] Nathan Clay MD Spinal stenosis of lumbar region with neurogenic claudication (Primary Dx); History of total bilateral knee replacement; Acute pain of right knee 10/04/2024 Orders Only [facility] Orthopaedic Surgery [address] [place] [address] Office [facility] [address] [place] [phone] Nathan Clay MD S/P spinal fusion (Primary Dx); Spinal stenosis of lumbar region with neurogenic claudication 10/04/2024 Orders Only [facility] Orthopaedic Surgery [address] [place] [address] 4 [address] [place] [phone] Nathan Clay MD S/P spinal fusion (Primary Dx); Spinal stenosis of lumbar region with neurogenic claudication 10/01/2024 Orders Only [facility] Orthopaedic Surgery [address] [place] [address] Medical Office [facility] [address] [place] [phone] Nathan Clay MD Spinal stenosis of lumbar region with neurogenic claudication (Primary Dx); S/P spinal fusion from Last 3 Months Allergies Active Allergy [...] mg total) by mouth every morning Active docusate sodium [...] or minimal response. 1 each 0 Active cyclobenzaprine (FLEXERIL) 10 mg tablet Take [...] 90 capsule 11 5 08/27/19 26 Active calcium carbonate-vitam in D3 1,250mg (500mg elemental) - 5 mcg (200 units) per tablet Take 1 tablet by mouth Active venlafaxine XR (EFFEXOR-XR) 150 mg 24 hr capsule Take 1 capsule (150 mg total) by mouth daily 30 capsule 5 Active Active Problems Problem Noted Date Diagnosed [...] L1-2 Posterior Lumbar Laminectomy, L1-L2 TLIF, Revision [id number] Posterior Spinal Fusion with Instrumentation with ortho [...] (10/26/2020): Added automatically from request for surgery [id number] Hypertension 05/25/2020 Assessment & Plan (10/04/2023 9:39 [...] on file Legal Sex Female 10:23 AM CAR SALESPERSON Gender Identity Not on file Sexual Orientation Not on file Last Filed Vital Signs Vital Sign Reading Time Taken Comments Blood Pressure 146/86 06/29/2024 1:24 PM CAR SALESPERSON Pulse 96 06/29/2024 1:24 PM CAR SALESPERSON Temperature 36.7 C (98.1 F) 06/29/2024 1:24 PM CAR SALESPERSON Respiratory Rate 18 06/29/2024 1:24 PM CAR SALESPERSON Oxygen Saturation 95% 06/29/2024 1:24 PM CAR SALESPERSON Inhaled Oxygen Concentration - - Weight 88 kg (194 lb) 11/15/2024 1:51 PM CDT Height 157.5 cm (5' 2) 11/15/2024 1:51 PM CDT Body Mass Index 35.48 11/15/2024 1:51 PM CDT Plan of Treatment Not on [...] needed Reduce the likelihood of falling Lifestyle Ivette Mondragon RN Note: Below are four things you [...] on stairs Contact your local community or [facility] for information on exercise, fall prevention programs, or options for improving home safety. Medical Devices Implanted Type Area Inbound Sales Advisor Device Identifier Shelf Expiration Date Model / Serial / Lot Graft 1-4mm 90cc Bone Cancellous Frozen - [id number] - [id number] Implanted:Qty: 1 on 05/29/2020 at [facility] Bone N/A: Lumbar-S acral Spine [employer] 01/14/2025 [id number] / [id number] / Allosource [id number] Crushed Chip Frozen Graft 30ml Bone Cancellous - [id number] Implanted:Qty: 1 on 05/29/2020 at [facility] Bone N/A: Lumbar-S acral Spine Allosource 01/24/2025 [id number] / / [id number] Allergan Usa Inc 797n-Ra-94-T Implant Mammary Natrelle Te Smooth 847l-Pl-10-T With Fourte - [id number] - [id number] Implanted:Qty: 1 on 10/12/2019 by Alexsander Nj MD at [facility] Breast Right: Breast [employer]er[employer] Inc 05/24/2024 695K-HJ-20-T / [id number] / [id number] Description:Checked manufact urer's website and these breast tissue expanders are labeled MRI Unsafe JL 03/14/2020 Allergan Usa Inc Ssx-615 Natrelle Inspira Smooth Shell Surface Extra Full Profile Implant Latex Free - [id number] - [id number] Implanted:Qty: 1 on 12/21/2020 by Alexsander Nj MD at [facility] Breast Left: Breast [employer] Inc [id number] 12/12/2024 SSX-615 / [id number] / [id number] Allergan [employer] Inc Ssx-615 Natrelle Inspira Smooth Shell Surface Extra Full Profile Implant Latex Free - [id number] - [id number] Implanted:Qty: 1 on 12/21/2020 by Alexsander Nj MD at [facility] Breast Right: Breast [employer] Inc [id number] 04/12/2024 SSX-615 / [id number] / [id number] Medtronic Inc Cage Spinal Lumbar Plif Expandable Long Catalyft 7mm Titanium [id number] - Sna - [id number] Implanted:Qty: 1 on 09/29/2023 by Nathan Clay MD at [facility] Cage N/A: Lumbar-S acral Spine Medtronic Inc [id number] 08/21/2031 [id number] / NA / [id number] Description:IMPLANT PAUSE PE RFORMED Medtronic Inc Kit Graft Bone Sponge Xlg Infuse 8cc Granules [id number] - Sna - [id number] Implanted:Qty: 1 on 09/29/2023 by Nathan Clay MD at [facility] Graft N/A: Lumbar-S acral Spine Medtronic Inc 12/12/2024 [id number] / NA / [id number] Description:IMPLANT PAUSE PE RFORMED Acuity Surgical Inc Filler Bone Void Acupac Advanced Frozen 50cc [id number] - [id number] - [id number] Implanted:Qty: 1 on 09/29/2023 by Nathan Clay MD at [facility] Graft N/A: Lumbar-S acral Spine [employer]uity [employer] Inc 11/29/2025 [id number] / [id number] / Description:IMPLANT PAUSE PE RFORMED [employer]uity [employer] Inc Tissue Bone Void Filler Acupac Plus 50cc [id number] - [id number] - [id number] Implanted:Qty: 1 on 09/29/2023 by Nathan Clay MD at [facility] Graft N/A: Lumbar-S acral Spine [employer] Inc 11/30/2025 [id number] / [id number] / Description:IMPLANT PAUSE PE RFORMED Medtronic Inc Cd Horizon 5.5mm 500mm Line Straight Ananda Spinal Titanium [id number] - Sna - [id number] Implanted:Qty: 1 on 09/29/2023 by Nathan Clay MD at [facility] Other - see comments N/A: Lumbar-S acral Spine Medtronic Inc [id number] / NA / Description:IMPLANT PAUSE PE RFORMED Medtronic Sofamor Danek [id number] Solera Cd Horizon 6.5mm 50mm Multiaxial Spine Screw Bone Cocr - [id number] Implanted:Qty: 4 on 05/29/2020 by Nathan Clay MD at [facility] Screw N/A: Lumbar-S acral Spine Medtronic Inc [id number] / / Medtronic Sofamor Dane[place] [id number] Solera Cd Horizon 7.5mm 45mm Multiaxial Spine Screw Bone Cocr - [id number] Implanted:Qty: 2 on 05/29/2020 by Nathan Clay MD at [facility] Screw N/A: Lumbar-S acral Spine Medtronic Inc [id number] / / Medtronic Sofamor Dane[place] [id number] Solera Cd Horizon 7.5mm 50mm Multiaxial Spine Screw Bone Cocr - [id number] Implanted:Qty: 2 on 05/29/2020 by Nathan Clay MD at [facility] Screw N/A: Lumbar-S acral Spine Medtronic Inc [id number] / / Medtronic Inc 8.5mm 50mm Multiaxial Spine Screw Bone [id number] - Sna - [id number] Implanted:Qty: 1 on 09/29/2023 by Nathan Clay MD at [facility] Screw N/A: Lumbar-S acral Spine Medtronic Inc [id number] / NA / Description:IMPLANT PAUSE PE RFORMED Medtronic Inc Solera Cd Horizon 5.5mm 50mm Multiaxial Spine Screw Bone Cocr [id number] - Sna - [id number] Implanted:Qty: 2 on 09/29/2023 by Nathan Clay MD at [facility] Screw N/A: Lumbar-S acral Spine Medtronic Inc [id number] / NA / Description:IMPLANT PAUSE PE RFORMED Medtronic Inc Solera Cd Horizon 6.5mm 50mm Multiaxial Spine Screw Bone Cocr [id number] - Sna - [id number] Implanted:Qty: 4 on 09/29/2023 by Nathan Clay MD at [facility] Screw N/A: Lumbar-S acral Spine Medtronic Inc [id number] / NA / Description:IMPLANT PAUSE PE RFORMED Medtronic Inc Solera Cd Horizon 7.5mm 50mm Multiaxial Spine Screw Bone Cocr [id number] - Sna - [id number] Implanted:Qty: 1 on 09/29/2023 by Nathan Clay MD at [facility] Screw N/A: Lumbar-S acral Spine Medtronic Inc [id number] / NA / Description:IMPLANT PAUSE PE RFORMED Medtronic Inc Cd Horizon Break Off Spinal Screw Set Titanium Nonsterile 5.5 Mm [id number] - Sna - [id number] Implanted:Qty: 18 on 09/29/2023 by Nathan Clay MD at [facility] Screw N/A: Lumbar-S acral Spine Medtronic Inc [id number] / NA / Description:IMPLANT PAUSE PE RFORMED Breast Implant Bilatera l: Breast Hardware N/A: Neck Cerapedics Inc 700-025 I Factor Allograft Putty Syringe Graft 2.5cc Bone - [id number] Implanted:Qty: 1 on 07/16/2018 by Anson Benjamin MD at [facility] Right: Lumbar-S acral Spine Cerapedics Inc 02/10/2021 700-025 / / [id number] Cerapedics Inc 700-025 I Factor Allograft Putty Syringe Graft 2.5cc Bone - Sn/A - [id number] Implanted:Qty: 1 on 07/16/2018 by Anson Benjamin MD at [facility] Left: Lumbar-S acral Spine Cerapedics Inc 02/10/2021 700-025 / N/A / [id number] Devicor Medical Products Inc [id number] Magtrace Liquid Marker 10 Vial Carton - [id number] Implanted:Qty: 1 on 10/12/2019 by Darlene Schroeder MD PhD at [facility] Right: Breast [employer] Inc 02/10/2020 [id number] / / [id number] Allergan Usa Inc 570u-Ec-40-T Implant Mammary Natrelle Te Smooth 056v-Hp-93-T With Fourte - [id number] - [id number] Implanted:Qty: 1 on 10/12/2019 by Alexsander Nj MD at [facility] Left: Breast [employer]ergan [employer]sa Inc 02/29/2024 378C-CV-27-T / [id number] / Description:Checked manufact urer's website and these breast tissue expanders are labeled MRI Unsafe JL 03/14/2020 Medtronic Inc [id number] 8.5mm 80mm Multiaxial Cannulated Thoracolumbar Screw Bone - [id number] Implanted:Qty: 2 on 05/29/2020 by Nathan Clay MD at [facility] N/A: Lumbar-S acral Spine Medtronic Inc [id number] / / Explanted Type Area Inbound Sales Advisor Device Identifier Shelf Expiration Date Model / Serial / Lot Allergan Tissue Welding Machine Operator Plasma Arc Style Sfx 550cc Explanted:Qty: 1 on 12/21/2020 by Alexsander Nj MD at [facility] Breast Right: Breast Allergan Usa Inc / / [id number] Description:Implanted in Sep Allergan Tissue Welding Machine Operator Plasma Arc Sstyle Sfx 550cc Explanted:Qty: 1 on 12/21/2020 by Alexsander Nj MD at [facility] Breast Left: Breast Allergan Usa Inc / / [id number] Description:Iplanted September 12 020 Screw Set Streamline Tl Screw System - Sn/A - [id number] Implanted:Qty: 6 on 07/16/2018 by Anson Benjamin MD at [facility] Explanted:Qty: 6 on 05/29/2020 at [facility] Screw N/A: Lumbar-Sac ral Spine Rti Surgical Inc 01-SETSCREW / N/A / Screw 7.5mm X 35mm Srmlne Pedicle - [id number] Implanted:Qty: 2 on 07/16/2018 by Anson Benjamin MD at [facility] Explanted:Qty: 2 on 05/29/2020 at [facility] Screw N/A: Lumbar-Sac ral Spine Rti Surgical Inc -PA-75-35 / / Screw 7.5mm X 40mm Srmlne Pedicle - Sn/A - [id number] Implanted:Qty: 2 on 07/16/2018 by Anson Benjamin MD at [facility] Explanted:Qty: 2 on 05/29/2020 at [facility] Screw N/A: Lumbar-Sac ral Spine Rti [employer] Inc PA-75-40 / N/A / Screw 7.5mm X 45mm Srmlne Pedicle - Sn/A - [id number] Implanted:Qty: 1 on 07/16/2018 by Anson Benjamin MD at [facility] Explanted:Qty: 1 on 05/29/2020 at [facility] Screw N/A: Lumbar-Sac ral Spine Rti [employer] Inc PA-75-45 / N/A / Ananda Spinal Quantum Titanium L70 Mm Od5.5 Mm Prebent - Sn/A - [id number] Implanted:Qty: 2 on 07/16/2018 by Anson Benjamin MD at [facility] Explanted:Qty: 2 on 05/29/2020 at [facility] N/A: Lumbar-Sac ral Spine Rti Surgical Inc 10-55-UT-70 / N/A / Screw 7.5mm X 40mm Srmlne Pedicle Explanted:Qty: 1 on 05/29/2020 at [facility] N/A: Lumbar-Sac ral Spine Other Medtronic Sofamor Danek [id number] Cd Horizon Break Off Spinal Screw Set Titanium Nonsterile 5.5 Mm - [id number] Implanted:Qty: 12 on 05/29/2020 by Nathan Clay MD at [facility] Explanted:Qty: 12 on 09/29/2023 by Nathan lCay MD at [facility] N/A: Lumbar-Sac ral Spine Medtronic Inc [id number] / / Medtronic Sofamor Danek [id number] Cd Horizon 5.5mm 500mm Line Straight Ananda Spinal Titanium - [id number] Implanted:Qty: 1 on 05/29/2020 by Nathan Clay MD at [facility] Explanted:Qty: 1 on 09/29/2023 by Nathan Clay MD at [facility] N/A: Lumbar-Sac ral Spine Medtronic Inc [id number] / / Procedures Procedure Name Priority Date/Time Associated Diagnosis Comments PROTEIN ELECTROPHORESIS, WITH REFLEX, SERUM Routine 11/15/2024 3:12 PM CDT Osteopenia of left hip PHOSPHORUS Routine 11/15/2024 3:12 PM CDT Osteopenia of left hip ALKALINE PHOSPHATASE, BONE SPECIFIC Routine 11/15/2024 3:12 PM CDT Osteopenia of left hip DEXA TBS AXIAL SKELETON BONE DENSITY 1 OR MORE SITES Schedule Routine, Read Routine (OP Routine) 11/15/2024 1:48 PM CDT Spinal stenosis of lumbar region with neurogenic claudication XR SCOLIOSIS 6 OR MORE VIEWS Schedule [...] Read Routine (OP Routine) 07/28/2019 3:52 PM CAR SALESPERSON Encounter for screening mammogram for malignant neoplasm of breast from Last 3 Months or Most Recently Relevant to Health Maintenance Results * Alkaline phosphatase, bone specific (11/15/2024 3:12 PM CDT) Alk phos, bone 23 mcg/L [facility] Comment: REFERENCE VALUE <=14 (Premenopausal) <=22 (Postmenopausal) ADDITIONAL INFORMATION Liver-derived alkaline phosphatase (ALP) increases apparent measured bone alkaline phosphatase (BAP) in this assay by 2.5 mcg/L to 5.8 mcg/L for every 100 U/L of liver ALP. Accordingly, serum specimens with significant elevations of liver ALP activity may yield artificially elevated results in the BAP assay. Test Performed by: [facility] [address] [facility] [place], [place] [address] Bench Examiner: Antonio Olvera Ph.D.; CLIA# [id number] Testing performed by: [facility], [address] [facility], [place] [address] Blood 11/15/2024 3:12 PM CDT 11/15/2024 4:05 PM CDT Arlene Mosqueda MD LAB BLOOD ORDERABLE S Final Result RAYRAY SHARIF [address] [facility]. Department [place] [address] [facility] * Protein electrophoresis with reflex, serum with interpretation (11/15/2024 3:12 PM CDT) Protein, sr 7.2 6.2 - 8.2 g/dL Comment:Testing performed by : [facility], [address] [place] [address]., [id number] Albumin 4.2 3.2 - 5.0 g/dL RAYRAY GIFFORD Comment:Testing performed by : [facility], [address] [place] [address]., [id number] Alpha-1 globulin 0.3 0.2 - 0.4 g/dL RAYRAY GIFFORD Comment:Testing performed by : [facility], [address] [place] [address]., [id number] Alpha-2 globulin 0.9 0.5 - 1.0 g/dL RAYRAY GIFFORD Comment:Testing performed by : [facility], [address] [place] [address]., [address] Beta-1 globulin 0.5 0.3 - 0.6 g/dL RAYRAY GIFFORD Comment:Testing performed by : [facility], [address] [place] [address]., [address] Beta-2 globulin 0.4 0.2 - 0.6 g/dL RAYRAY GIFFORD Comment:Testing performed by : [facility], [address] [place] [address]., [address] Gamma globulin 0.9 0.5 - 1.7 g/dL RAYRAY GIFFORD Comment:Testing performed by : [facility], [address] [place] [address]., [id number] SPEP interp See Comment RAYRAY GIFFORD Comment: SPEP INTERPRETATION: No apparent monoclonal peak Testing performed by: [facility], [address] [place] [address]., [id number] Blood 11/15/2024 3:12 PM CDT 11/15/2024 6:01 PM CDT Arlene Mosqueda MD LAB BLOOD ORDERABLE S Final Result Performing Organization Address City/[facility]/ZIP Co de Phone Number [facility] [address] [facility]. [place] [address] * Phosphorus (11/15/2024 3:12 PM CDT) [facility] Phosphorus, pl 4.1 2.3 - 4.5 mg/dL Comment:Testing performed by : [facility], [address] [facility], [place] [address] Blood 11/15/2024 3:12 PM CDT 11/15/2024 4:05 PM CDT Arlene Mosqueda MD LAB BLOOD ORDERABLE S Final Result [facility] [address] [facility]. [facility] [employer] [place] [address] * Dexa TBS Axial Skeleton Bone Density 1 or more sites (11/15/2024 1:48 PM CDT) Anatomical Region Laterality Modality Wrist, Body N/A Radiographic Kristin ging Narrative 11/15/2024 3:26 PM CDT Patient Name: Ailyn Farah Date of : 1960 Date of scan: 11/15/2024 Bone mineral density was performed on a HoloSiri Discovery Densitometer. Based on machine cross-calibration and precision studies the least significant changes of this densitometer is 0.024 g/cm2 at the spine, 0.020 g/cm2 at the total proximal femur, and 0.014g/cm2 at the forearm. HISTORY: This is a 64 y.o. postmenopausal female with a history of breast cancer and low bone mass. She reports that she has never smoked. She has been exposed to tobacco smoke. She has never used smokeless tobacco. Currently on treatment with calcium and vitamin D and current complaint of back pain. INDICATIONS: Menopause status and history of low bone mass. FINDINGS: BONE MINERAL DENSITY OF THE PROXIMAL FEMUR Bone Mineral Density (BMD) of the left hip total was found to be 0.829 gm/cm2. This corresponds to a T-score standard deviations from the mean of young adults of -0.9. Femoral neck is 0.595 gm/cm2 with a T-score (standard deviations from the mean of young adults) of -2.3. When compared to the previous study of 09/12/2023 there has been no significant changes in bone density. BONE MINERAL DENSITY OF THE FOREARM Bone Mineral density (BMD) of the left proximal 1/3 of the radius measures 0.663 gm/cm2. This corresponds to a T-score (standard deviations from the mean of young adults) of -0.5. When compared to the previous study of 09/12/2023 there has been a 0.028 gm/cm (4.5%) increase in bone density that is considered significant. A forearm bone density study was performed instead of a spine study due to presence of surgical hardware. SUMMARY: Bone mineral density shows evidence of low bone mass at the proximal femur and moderately increased fracture risk (Osteopenia). There has been a significant increase in bone density since previous measurement. The lumbar spine Trabecular Bone Score TBS was not obtained due to the bone mineral density of the spine not being acquired. ADDITIONAL COMMENTS: Postmenopausal Women and Men Over 50: Diagnostic criteria: Osteoporosis: BMD at or below -2.5 T-score; Osteopenia (low bone mass): BMD between -1.0 and -2.5 T-score. If the patient has a history of a fragility fracture, a fracture that occurred with trauma equivalent to a fall from a standing position or less, then the diagnosis is osteoporosis regardless of bone density. The history and data sections of the bone mineral density scan were prepared by Jessica Hurley) CBDRamesh who is accredited by the International Society of Clinical Densitometry. The overall patient assessment and scan interpretation were performed by Arlene Mosqueda M.D. who is certified by the International Society of Clinical Densitometry. [id number] us Coretta Bennett MD IMG DXA PROCEDURES Final Resu lt * XR Scoliosis 6 or More Views [...] PM CDT) Hep A IgM Nonreactive Nonreactive RAYRAY PARRISH Comment: Interpretive Data: If Hep A IgM Ab is reported as Equivocal, a new sample should be drawn in two weeks for testing. Current interpretive data was last revised on 19. Hep B core IgM Nonreactive Nonreactive RAYRAY PARRISH Comment: Interpretive Data If HepB Core IgM Ab is reported as Equivocal, a new sample should be drawn in two weeks for testing. Current interpretive data was last revised on 19. Hep C Ab Nonreactive Nonreactive [facility] HepBsAg Nonreactive Nonreactive [facility] Blood specimen (specimen) 11/03/2019 1:18 PM CDT 11/03/2019 2:07 PM CDT us Aime Cowart MD LAB MICROBIO LOGY - GENERAL ORDERABLES Edited Result - Final RAYRAY [facility] Department [place] [address] * Screening Mammogram Bilateral w Jose R w Implants (07/28/2019 3:52 PM CAR SALESPERSON) Anatomical Region Laterality Modality Breast Bilateral Mammography Narrative 07/29/2019 7:48 AM CAR SALESPERSON Mammogram Technique: Bilateral Digital Breast Tomosynthesis, Bilateral C-view 2D Screening mammogram. Views obtained: bilateral craniocaudal; bilateral craniocaudal implant displaced; bilateral mediolateral oblique; and bilateral mediolateral oblique implant displaced. Computer Aided Detection was performed. Mammogram Findings: The present examination has been compared to prior imaging studies performed at [facility] on 09/11/2016, 09/17/2017 and 05/12/2018. There are [...] compared to prior imaging studies performed at [facility] on 09/11/2016, 09/17/2017 and 05/12/2018. There are [...] Most Recently Relevant to Health Maintenance Insurance [facility] [place] [id number] [employer] [place] [facility] [place] [id number] [facility] BL[place] BLUE ACCESS [place] ACCESS [facility] [place] [phone] BLUE ACCESS OOS [employer] OOS Advance Directives For more information, please contact: [phone] * Full Code (Latest Code Status on [...] 10:20 PM 07/30/2018 5:29 PM Care Teams Side Seam Envelope Machine Operator Relationship Specialty Start Date End Date Anson Reed DO PCP - General 09/11/16 Alexsander Carter Jr., MD [address] [facility] [address] [place] [address] Consulting Physician Pulmonary Disease 07/30/18
--- OUTSIDE RECORDS SUMMARY | 2024-12-21 13:24 | XMS_ITS | Continuity of Care Document ---
Author Organization [facility] Address [address] [place] [address] Phone Care Team Providers Care Strip Presser Name Role Phone Elizabeth MACEDO MD, Dave Unavailable Unavail able Procedures Procedure Date Initial hospital care, moderate 018 Followup hospital care, brief 9 Advance Directives Directive Yes / No Effective Date File Name No Information Encounters Encounter Description Practice Location Reason(s) For Visit Diagnoses Date Provider Providers Copied on Encounter [facility], [address], [address] [place] [address], tel:[phone] [facility] No Information 9 Elizabeth Acosta. [address] [facility], [place] [address], [place], [place], [address] [place] [address], [place]. tel:[phone] Initial hospital care, [facility], [address], [id number], tel:[phone] [facility] No Information 8 Dez Marquez. [address] [facility], [facility] [address], [place], [place], [id number], [place]. tel:[phone] Referring Provider: Alma Raphael, [address] [facility] [address] [facility], [place], [address] . tel:[phone] Family History Family Member Type Diagnosis Age At Onset No Information Payers Payer name Insurance type Covered alliance party ID Authoriza tion(s) No Information Social History Type Description Quantity Date Captured Comments Alcohol Use Details Unknown Caffeine Use Details Unknown Tobacco Use Status No Information Smoking Status No Information Sex Female Chief Complaint And Reason For Visit No Information Reason For Referral Reason For Referral No Information History Of Present Illness Encounter Date Complaint History Of Prese nt Illness No Information Functional Status Date Functional Assessmen t No Information Instructions Date Instruction Additional Infor mation No Information Assessments Type Assessment Date No Information Patient Care Teams Name Effective Dates (start - stop) Status Members No Information
--- OUTSIDE RECORDS SUMMARY | 2024-12-21 13:24 | XMS_ITS ---
Author Organization [facility] Address [address] [place] [address] Care Team Providers Care Gutter Installer Name Role Phone Anson Reed DO Primary Care Provider [phone] Raul Gardner MD, [facility]. Unavailable [phone] Active Problems Problem Noted Date Diagnosed Date [...] L1-2 Posterior Lumbar Laminectomy, L1-L2 TLIF, Revision [id number] Posterior Spinal Fusion with Instrumentation with ortho [...] (10/26/2020): Added automatically from request for surgery [id number] Hypertension 05/25/2020 Assessment & Plan (10/04/2023 9:39 [...]
--- OUTSIDE RECORDS SUMMARY | 2024-12-21 13:24 | XMS_ITS | Clinical Summary ---
Author Organization [facility] Address [address] [place] [address] Care Team Providers Care Geothermal System Installer Name Role Phone Anson Reed DO Primary Care Provider [phone] Raul [facility], [facility] Un[facility] [phone] Allergies Active Allergy Reactions Criticality Noted Date [...] L1-2 Posterior Lumbar Laminectomy, L1-L2 TLIF, Revision [id number] Posterior Spinal Fusion with Instrumentation with ortho [...] History of bilateral mastectomy 07/25/2022 Overview (03/27/2023): 2019 Status post cervical spinal fusion 07/25/2022 Tendinitis of long head of biceps brachii of lef t shoulder 05/13/2022 Impingement syndrome of left shoulder region 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 Full thickness rotator cuff tear 05/02/2022 Breast and nipples, absence of, bilateral 2020 Overview (10/26/2020): Added automatically from request for surgery [id number] Hypertension 05/25/2020 Assessment & Plan (10/04/2023 9:39 [...] Date Type Department Care Team Description 11/15/2024 3:45 PM CDT Lab [facility] at [address] [address] Osteopenia of left hip 11/15/2024 2:00 PM CDT Office Visit [address] Medical Office Building [address] [place] [address] Arlene Mosqueda MD Osteopenia of left hip (Primary Dx) 11/15/2024 1:30 PM CDT Clinical Support [address] Medical Office Building [address] [place] [id number] Osteopenia of left hip (Primary Dx); Spinal stenosis of lumbar region with neurogenic claudication 11/15/[address] Medical Office Building [address] [place] [address] Arlene Mosqueda MD 11/11/2024 Orders Only [facility] [address] [facility] Floor 8 [place] [phone] Aime Cowart MD 11/04/2024 9:15 AM CDT Office Visit [facility] [address] [facility] Medical Office Building [address] [place] [address] Nathan Clay MD Spinal stenosis of lumbar region with neurogenic claudication (Primary Dx); History of total bilateral knee replacement; Acute pain of right knee 11/04/2024 8:45 AM CDT - 11/04/2024 11:59 PM CDT Hospital Encounter [facility] [address] [place] [address] [address] [place] [address] Spinal stenosis of lumbar region with neurogenic claudication; S/P spinal fusion Discharge Disposition: Discharge to home or self care 10/04/2024 Orders Only [facility] [address] [place] [address] 4 [address] [place] [address] Nathan Clay MD S/P spinal fusion (Primary Dx); Spinal stenosis of lumbar region with neurogenic claudication 10/04/2024 Orders Only [address] [place] [phone] Nathan Clay MD S/P spinal fusion (Primary Dx); Spinal stenosis of lumbar region with neurogenic claudication 10/01/2024 Orders Only [facility] [address] [place] [address] 4 [address] [place] [phone] Nathan Clay MD Spinal stenosis of lumbar region with neurogenic claudication (Primary Dx); S/P spinal fusion from Last 3 Months Immunizations Immunization Administration [...] x3 LUMBAR FUSION 07/16/2018 re-do BACK SURGERY DE ARTHRP KNE CONDYLE&PLATU MEDIAL&LAT COMPARTMENTS Bilateral SPINAL [...] on file Legal Sex Female 10:23 AM DIRECTOR OF STRATEGIC COMMUNICATIONS Gender Identity Not on file Sexual Orientation Not on file Obstetrics History Last Filed Vital Signs Vital Sign Reading Time Taken Comments Blood Pressure 146/86 06/29/2024 1:24 PM DIRECTOR OF STRATEGIC COMMUNICATIONS Pulse 96 06/29/2024 1:24 PM DIRECTOR OF STRATEGIC COMMUNICATIONS Temperature 36.7 C (98.1 F) 06/29/2024 1:24 PM DIRECTOR OF STRATEGIC COMMUNICATIONS Respiratory Rate 18 06/29/2024 1:24 PM DIRECTOR OF STRATEGIC COMMUNICATIONS Oxygen Saturation 95% 06/29/2024 1:24 PM DIRECTOR OF STRATEGIC COMMUNICATIONS Inhaled Oxygen Concentration - - Weight 88 kg (194 lb) 11/15/2024 1:51 PM CDT Height 157.5 cm (5' 2) 11/15/2024 1:51 PM CDT Body Mass Index 35.48 11/15/2024 1:51 PM CDT Plan of Treatment Health Maintenance [...] home safety. Medical Devices Implanted Type Area Stars Coordinator Device Identifier Shelf Expiration Date Model / Serial / Lot Graft 1-4mm 90cc Bone Cancellous Frozen - [id number] - [id number] Implanted:Qty: 1 on 05/29/[address] [facility] Bone N/A: Lumbar-S acral Spine [employer] 01/14/2025 [id number] / [id number] / Allosource [id number] Crushed Chip Frozen Graft 30ml Bone Cancellous - [id number] Implanted:Qty: 1 on 05/29/[address] [facility] Bone N/A: Lumbar-S acral Spine Allosource 01/24/2025 [id number] / / [id number] Allergan Usa Inc 516s-Jy-30-T Implant Mammary Natrelle Te Smooth 657w-Tx-44-T With Fourte - [id number] - [id number] Implanted:Qty: 1 on 10/12/2019 by Alexsander Nj MD at [facility] Breast Right: Breast Allergan [employer] Inc 05/24/2024 168X-MZ-75-T / [id number] / [id number] Description:Checked manufact urer's website and these breast tissue expanders are labeled MRI Unsafe JL 03/14/2020 Allergan Usa Inc Ssx-615 Natrelle Inspira Smooth Shell Surface Extra Full Profile Implant Latex Free - [id number] - [id number] Implanted:Qty: 1 on 12/21/2020 by Alexsander Nj MD at [facility] Breast Left: Breast [employer] [id number] 12/12/2024 SSX-615 / [id number] / [id number] Allergan [employer] Inc Ssx-615 Natrelle Inspira Smooth Shell Surface Extra Full Profile Implant Latex Free - [id number] - [id number] Implanted:Qty: 1 on 12/21/2020 by Alexsander Nj MD at [facility] Breast Right: Breast [employer] Inc [id number] 04/12/2024 SSX-615 / [id number] / [id number] Medtronic Inc Cage Spinal Lumbar Plif Expandable Long Catalyft 7mm Titanium [id number] - Sna - [id number] Implanted:Qty: 1 on 09/29/2023 by Nathan Clay MD at [facility] Cage N/A: Lumbar-S acral Spine Medtronic Inc [id number] 08/21/2031 [id number] / NA / [id number] Description:IMPLANT PAUSE PE RFORMED Medtronic Inc Kit Graft Bone Sponge Xlg Infuse 8cc Granules [id number] - Sna - [id number] Implanted:Qty: 1 on 09/29/2023 by Nathan Clay MD at [facility] Graft N/A: Lumbar-S acral Spine Medtronic Inc 12/12/2024 [id number] / NA / [id number] Description:IMPLANT PAUSE PE RFORMED Acuity Surgical Inc Filler Bone Void Acupac Advanced Frozen 50cc 90-[id number] - [id number] - [id number] Implanted:Qty: 1 on 09/29/2023 by Nathan Clay MD at [facility] Graft N/A: Lumbar-S acral Spine [employer]uity [employer] Inc 11/29/2025 [id number] / [id number] / Description:IMPLANT PAUSE PE RFORMED Acuity [employer] Inc Tissue Bone Void Filler Acupac Plus 50cc [id number] - [id number] - [id number] Implanted:Qty: 1 on 09/29/2023 by Nathan Clay MD at [facility] Graft N/A: Lumbar-S acral Spine [employer] Inc 11/30/2025 [id number] / [id number] / Description:IMPLANT PAUSE PE RFORMED Medtronic Inc Cd Horizon 5.5mm 500mm Line Straight Ananda Spinal Titanium [id number] - Sna - [id number] Implanted:Qty: 1 on 09/29/2023 by Nathan Clay MD at [facility] Other - see comments N/A: Lumbar-S acral Spine Medtronic Inc [id number] / NA / Description:IMPLANT PAUSE PE RFORMED Medtronic Sofamor Danek [id number] Solera Cd Horizon 6.5mm 50mm Multiaxial Spine Screw Bone Cocr - [id number] Implanted:Qty: 4 on 05/29/2020 by Nathan Clay MD at [facility] Screw N/A: Lumbar-S acral Spine Medtronic Inc [id number] / / Medtronic Sofamor Danek [id number] Solera Cd Horizon 7.5mm 45mm Multiaxial Spine Screw Bone Cocr - [id number] Implanted:Qty: 2 on 05/29/2020 by Nathan Clay MD at [facility] Screw N/A: Lumbar-S acral Spine Medtronic Inc [id number] / / Medtronic Sofamor Danek [id number] Solera Cd Horizon 7.5mm 50mm Multiaxial Spine Screw Bone Cocr - [id number] Implanted:Qty: 2 on 05/29/2020 by Nathan Clay MD at [facility] Screw N/A: Lumbar-S acral Spine Medtronic Inc [id number] / / Medtronic Inc 8.5mm 50mm Multiaxial Spine Screw Bone [id number] - Sna - [id number] Implanted:Qty: 1 on 09/29/2023 by Nathan Clay MD at [facility] Screw N/A: Lumbar-S acral Spine Medtronic Inc [id number] / NA / Description:IMPLANT PAUSE PE RFORMED Medtronic Inc Solera Cd Horizon 5.5mm 50mm Multiaxial Spine Screw Bone Cocr [id number] - Sna - [id number] Implanted:Qty: 2 on 09/29/2023 by Nathan Clay MD at [facility] Screw N/A: Lumbar-S acral Spine Medtronic Inc [id number] / NA / Description:IMPLANT PAUSE PE RFORMED Medtronic Inc Solera Cd Horizon 6.5mm 50mm Multiaxial Spine Screw Bone Cocr [id number] - Sna - [id number] Implanted:Qty: 4 on 09/29/2023 by Nathan Clay MD at [facility] Screw N/A: Lumbar-S acral Spine Medtronic Inc [id number] / NA / Description:IMPLANT PAUSE PE RFORMED Medtronic Inc Solera Cd Horizon 7.5mm 50mm Multiaxial Spine Screw Bone Cocr [id number] - Sna - [id number] Implanted:Qty: 1 on 09/29/2023 by Nathan Clay MD at [facility] Screw N/A: Lumbar-S acral Spine Medtronic Inc [id number] / NA / Description:IMPLANT PAUSE PE RFORMED Medtronic Inc Cd Horizon Break Off Spinal Screw Set Titanium Nonsterile 5.5 Mm [id number] - Sna - [id number] Implanted:Qty: 18 on 09/29/2023 by Nathan Clay MD at [facility] Screw N/A: Lumbar-S acral Spine Medtronic Inc [id number] / NA / Description:IMPLANT PAUSE PE RFORMED Breast Implant Bilatera l: Breast Hardware N/A: Neck Cerapedics Inc 700-025 I Factor Allograft Putty Syringe Graft 2.5cc Bone - [id number] Implanted:Qty: 1 on 07/16/2018 by Anson Benjamin MD at [facility] Right: Lumbar-S acral Spine Cerapedics Inc 02/10/2021 700-025 / / [id number] Cerapedics Inc 700-025 I Factor Allograft Putty Syringe Graft 2.5cc Bone - Sn/A - [id number] Implanted:Qty: 1 on 07/16/2018 by Anson Benjamin MD at [facility] Left: Lumbar-S acral Spine Cerapedics Inc 02/10/2021 700-025 / N/A / [id number] Devicor Medical Products Inc [id number] Magtrace Liquid Marker 10 Vial Carton - [id number] Implanted:Qty: 1 on 10/12/2019 by Darlene Schroeder MD PhD at [facility] Right: Breast [employer] Inc 02/10/2020 [id number] / / [id number] Allergan Usa Inc 038h-Ei-54-T Implant Mammary Natrelle Te Smooth 416h-Gc-63-T With Fourte - [id number] - [id number] Implanted:Qty: 1 on 10/12/2019 by Alexsander Nj MD at [facility] Left: Breast [employer]ergan [employer] Inc 02/29/2024 767P-GM-54-T / [id number] / Description:Checked manufact urer's website and these breast tissue expanders are labeled MRI Unsafe JL 03/14/2020 Medtronic Inc [id number] 8.5mm 80mm Multiaxial Cannulated Thoracolumbar Screw Bone - [id number] Implanted:Qty: 2 on 05/29/2020 by Nathan Clay MD at [facility] N/A: Lumbar-S acral Spine Medtronic Inc [id number] / / Explanted Type Area Stars Coordinator Device Identifier Shelf Expiration Date Model / Serial / Lot Allergan Tissue Section 8 Property Manager Style Sfx 550cc Explanted:Qty: 1 on 12/21/2020 by Alexsander Nj MD at [facility] Breast Right: Breast Allergan Usa Inc / / [id number] Description:Implanted in Sep Allergan Tissue Section 8 Property Manager Sstyle Sfx 550cc Explanted:Qty: 1 on 12/21/2020 by Alexsander Nj MD at [facility] Breast Left: Breast Allergan Usa Inc / / [id number] Description:Iplanted September 12 020 Screw Set Streamline Tl Screw System - Sn/A - [id number] Implanted:Qty: 6 on 07/16/2018 by Anson Benjamin MD at [facility] Explanted:Qty: 6 on 05/29/[address] [facility] Screw N/A: Lumbar-Sac ral Spine Rti Surgical Inc -SETSCREW / N/A / Screw 7.5mm X 35mm Srmlne Pedicle - [id number] Implanted:Qty: 2 on 07/16/2018 by Anson Benjamin MD at [facility] Explanted:Qty: 2 on 05/29/[address] [facility] Screw N/A: Lumbar-Sac ral Spine Rti Surgical Inc -PA-75-35 / / Screw 7.5mm X 40mm Srmlne Pedicle - Sn/A - [id number] Implanted:Qty: 2 on 07/16/2018 by Anson Benjamin MD at [facility] Explanted:Qty: 2 on 05/29/[address] [facility] Screw N/A: Lumbar-Sac ral Spine Rti Surgical Inc -PA75-40 / N/A / Screw 7.5mm X 45mm Srmlne Pedicle - Sn/A - [id number] Implanted:Qty: 1 on 07/16/2018 by Anson Benjamin MD at [facility] Explanted:Qty: 1 on 05/29/[address] [facility] Screw N/A: Lumbar-Sac ral Spine Rti Surgical Inc 01-PA-75-45 / N/A / Ananda Spinal Quantum Titanium L70 Mm Od5.5 Mm Prebent - Sn/A - [id number] Implanted:Qty: 2 on 07/16/2018 by Anson Benjamin MD at [facility] Explanted:Qty: 2 on 05/29/[address] [facility] N/A: Lumbar-Sac ral Spine Rti Surgical Inc 10-55-DE-70 / N/A / Screw 7.5mm X 40mm Srmlne Pedicle Explanted:Qty: 1 on 05/29/[address] [facility] N/A: Lumbar-Sac ral Spine Other Medtronic Sofamor Danek [id number] Cd Horizon Break Off Spinal Screw Set Titanium Nonsterile 5.5 Mm - [id number] Implanted:Qty: 12 on 05/29/2020 by Nathan Clay MD at [facility] Explanted:Qty: 12 on 09/29/2023 by Nathan Clay MD at [facility] N/A: Lumbar-Sac ral Spine Medtronic Inc [id number] / / Medtronic Sofamor Danek [id number] Cd Horizon 5.5mm 500mm Line Straight Ananda Spinal Titanium - [id number] Implanted:Qty: 1 on 05/29/2020 by Nathan Clay MD at [facility] Explanted:Qty: 1 on 09/29/2023 by Nathan Clay MD at [facility] N/A: Lumbar-Sac ral Spine Medtronic Inc [id number] / / Procedures Procedure Name Priority Date/Time [...] Read Routine (OP Routine) 07/28/2019 3:52 PM DIRECTOR OF STRATEGIC COMMUNICATIONS Encounter for screening mammogram for malignant neoplasm of breast from Last 3 Months or Most Recently Relevant to Health Maintenance Results * Alkaline phosphatase, bone specific (11/15/2024 3:12 PM CDT) Alk phos, bone 23 mcg/L [facility] Comment: REFERENCE VALUE <=14 (Premenopausal) <=22 (Postmenopausal) ADDITIONAL INFORMATION Liver-derived alkaline phosphatase (ALP) increases apparent measured bone alkaline phosphatase (BAP) in this assay by 2.5 mcg/L to 5.8 mcg/L for every 100 U/L of liver ALP. Accordingly, serum specimens with significant elevations of liver ALP activity may yield artificially elevated results in the BAP assay. Test Performed by: [facility] expressor software - [employer] [address] [place] [address] Property Management Accountant: Antonio Olvera Ph.D.; CLIA# [id number] Testing performed by: [facility], [address] [facility], [place] [address] Blood 11/15/2024 3:12 PM CDT 11/15/2024 4:05 PM CDT Arlene Mosqueda MD LAB BLOOD ORDERABLE S Final Result [facility] [address] [facility]. [place] [address] [place] [facility] * Protein electrophoresis with reflex, serum with interpretation (11/15/2024 3:12 PM CDT) Protein, sr 7.2 6.2 - 8.2 g/dL Comment:Testing performed by : [facility], [address] [place] [address]., [address] Albumin 4.2 3.2 - 5.0 g/dL CERNER BJW[facility] Comment:Testing performed by : [facility], [address] [place] [address]., [address] Alpha-1 globulin 0.3 0.2 - 0.4 g/dL CERNER [facility] Comment:Testing performed by : [facility], [address] [place] [address]., [address] Alpha-2 globulin 0.9 0.5 - 1.0 g/dL CERNER [facility] Comment:Testing performed by : [facility], [address] [place] [address]., [address] Beta-1 globulin 0.5 0.3 - 0.6 g/dL CERNER [facility] Comment:Testing performed by : [facility], [address] [place] [address]., [address] Beta-2 globulin 0.4 0.2 - 0.6 g/dL CERNER [facility] Comment:Testing performed by : [facility], [address] [place]., [address] Gamma globulin 0.9 0.5 - 1.7 g/dL RAYRAY GIFFORD Comment:Testing performed by : [facility], [address] [place] [address]., [address] SPEP interp See Comment RAYRAY GIFFORD Comment: SPEP INTERPRETATION: No apparent monoclonal peak Testing performed by: [facility], [address] [place] [address]., [address] Blood 11/15/2024 3:12 PM CDT 11/15/2024 6:01 PM CDT Arlene Mosqueda MD LAB BLOOD ORDERABLE S Final Result Performing Organization Address City/[facility] Co de Phone Number RAYRAY BJWCH [address] [facility]. [facility] [address] [place], [place] [id number] * Phosphorus (11/15/2024 3:12 PM CDT) [facility] Phosphorus, pl 4.1 2.3 - 4.5 mg/dL Comment:Testing performed by : [facility], [address], [place] [address] Blood 11/15/2024 3:12 PM CDT 11/15/2024 4:05 PM CDT Arlene Mosqueda MD LAB BLOOD ORDERABLE S Final Result Performing Organization Address City/[facility]/ZIP Co de Phone Number RAYRAY BJW[facility] [address] [employer] [facility]. [facility] [place] [address] * Dexa TBS Axial Skeleton Bone Density 1 or more sites (11/15/2024 1:48 PM CDT) Anatomical Region Laterality Modality Wrist, Body N/A Radiographic Kristin ging Narrative 11/15/2024 3:26 PM CDT Patient Name: Ailyn Farah Date of : 1960 Date of scan: 11/15/2024 Bone mineral density was performed on a Hologic Discovery Densitometer. Based on machine cross-calibration and [...] density scan were prepared by Jessica Hurley) ANABELLAT who is accredited by the International Society of Clinical Densitometry. The overall patient assessment and scan interpretation were performed by Arlene Mosqueda M.D. who is certified by the International Society of Clinical Densitometry. [id number] Coretta Bennett MD IM DXA PROCEDURES Final Resu lt * XR [...] PM CDT) Hep A IgM Nonreactive Nonreactive [facility] Comment: Interpretive Data: If Hep A IgM Ab is reported as Equivocal, a new sample should be drawn in two weeks for testing. Current interpretive data was last revised on 19. Hep B core IgM Nonreactive Nonreactive [facility] Comment: Interpretive Data If HepB Core IgM Ab is reported as Equivocal, a new sample should be drawn in two weeks for testing. Current interpretive data was last revised on 19. Hep C Ab Nonreactive Nonreactive [facility] HepBsAg Nonreactive Nonreactive [facility] Blood specimen (specimen) 11/03/2019 1:18 PM CDT 11/03/2019 2:07 PM CDT us Aime Cowart MD LAB MICROBIO LOGY - GENERAL ORDERABLES Edited Result - Final RAYRAY PARRISH [facility] [place] [address] * Screening Mammogram Bilateral w Jose R w Implants (07/28/2019 3:52 PM DIRECTOR OF STRATEGIC COMMUNICATIONS) Anatomical Region Laterality Modality Breast Bilateral Mammography Narrative 07/29/2019 7:48 AM DIRECTOR OF STRATEGIC COMMUNICATIONS Mammogram Technique: Bilateral Digital Breast Tomosynthesis, Bilateral C-view 2D Screening mammogram. Views obtained: bilateral craniocaudal; bilateral craniocaudal implant displaced; bilateral mediolateral oblique; and bilateral mediolateral oblique implant displaced. Computer Aided Detection was performed. Mammogram Findings: The present examination has been compared to prior imaging studies performed at [facility] on 09/11/2016, 09/17/2017 and 05/12/2018. There are [...] compared to prior imaging studies performed at [facility] on 09/11/2016, 09/17/2017 and 05/12/2018. There are [...] Most Recently Relevant to Health Maintenance Insurance [employer] [facility] [employer] [place] BLUE ACCESS OOS ANTHEM ACCESS BLUE ACCESS OOS [employer] OOS Advance Directives For more information, please contact: [phone] * Full Code (Latest Code Status on [...] 10:20 PM 07/30/2018 5:29 PM Care Teams Geothermal System Installer Relationship Specialty Start Date End Date Anson Reed DO PCP - General 09/11/16 Alexsander Carter Jr., MD [address] [address] Consulting Physician Pulmonary Disease 07/30/18
--- NOTE | 2024-12-21 14:41 | PC.NURSE ---
Pt attempted to give urine sample - unable to urinate. ERT did a bladder scan to find 0 mls in bladder
[2024-12-21] MEDS: MORPHINE SULFATE (*CRX) 4 MG/ML INJ IV PUSH (14:50)
[2024-12-21] MEDS: ONDANSETRON INJ 4 MG/2 ML VIAL IV PUSH (14:50)
[2024-12-21 14:53] VITALS: BP 157/84; PULSE 77; RESP 16; O2SAT 99
--- NOTE | 2024-12-21 14:54 | ED_ITS ---
HPI - General Adult General Chief complaint: Abdominal Pain Stated complaint: KIDNEY STONE Time Seen by Provider: 12/21/24 13:12 History of Present Illness HPI narrative: Ailyn Farah is a 64-year-old female who presents with complaints of having right upper quadrant pain radiating to her right upper back area for 1 week. She states that the pain has been getting worse. She saw her pain specialist who thought it was more musculoskeletal pain. She saw her primary care doctor today who was concerned that she may have a stone and sensory to the emergency department. She feels like the pain has been getting worse. She states that she is on Oxy code own at baseline for pain was difficult to distinguish. She states that she had a normal amount of bowel movements 3 days ago but it was after a laxative. She states that she had small bowel movement today after laxative that she last night. She feels like she has not been passing gas today. She states that she was up in urinating a lot in the night last night but has not been able to urinate all day today. She no longer has from ladder reports of feeling nauseated not vomited. She rates her pain at 8/10. Related Data Home Medications ?Medication ?Instructions ?Recorded ?Confirmed ?Last Taken ?Type docusate sodium 100 mg capsule 100 mg PO DAILY PRN Constipation 03/22/20 11/11/24 Unknown History (Colace) multivitamin 1 tablet PO DAILY 03/22/20 11/11/24 Unknown History lisinopril 20 mg tablet 20 mg PO DAILY 06/24/22 11/11/24 Unknown History cyclobenzaprine 10 mg tablet 10 mg PO QPM 10/30/22 11/11/24 Unknown History calcium 250 mg-D3 400 1 tablet PO DAILY 11/25/22 11/11/24 Unknown History unit-magnesium 40 qc-N8-Qq-copper-manasa tablet vitamin E (dl, acetate) 45 mg (100 45 mg PO DAILY 11/25/22 11/11/24 Unknown History unit) capsule vitamin B12 500 mcg-folic acid 400 1 tablet PO DAILY 01/06/24 11/11/24 Unknown History mcg tablet gabapentin 300 mg capsule mg PO 11/11/24 11/11/24 Unknown History hydroxyzine HCl 25 mg tablet mg PO 11/11/24 11/11/24 Unknown History Allergies Allergy/AdvReac Type Severity Reaction Status Date / Time Sulfa (Sulfonamide Allergy Unknown Unknown Verified 12/21/24 12:35 Antibiotics) cyclophosphamide Allergy chest Verified 12/21/24 12:35 tightness and wheezing Review of Systems 2 Review of Systems: All systems reviewed & are unremarkable except as noted in HPI and below PMFSH Past Medical History Medical History Chronic pain with drug dependence Chemotherapy-induced peripheral neuropathy Erosive (osteo)arthritis Chronically on opiate therapy Chronic back pain Pneumonia Cancer of right breast Status post mastectomy and chemotherapy. Hypertension Left lower lobe pneumonia Preoperative clearance Thyroid nodule Insomnia Osteopenia Osteoarthritis Heartburn Surgical History Surgical History H/O spinal fusion History of bilateral mastectomy (10/12/19) History of cholecystectomy History of knee replacement History of breast augmentation History of hysterectomy History of back surgery Family History Family History Other Unknown family medical history Social History Social History Social History: Surrogate medical decision maker: Abisai kady, spouse or Vivien Farah, daughter. Code status: Full code. Smoking status: Never smoker Alcohol intake: never Substance use: never Substance use type: does not use Lack of Transportation: No Lack of Food: Never True Current Housing: I Have Housing Concerned About Future Housing: No Difficulty Paying Gas/Electric Bills: No Difficulty Paying for Meds: No Currently Unemployed: No Education: Associate Degree Difficulty w/ Childcare or Family Care: No Spiritual care concerns: No Exam 2 Narrative: GENERAL well-nourished, and in no acute distress. HEAD: Normocephalic, atraumatic. EYES: PERRLA and EOMI. ENT: Nares clear, no rhinorrhea or epistaxis. Mucous membranes moist. Oropharynx without tonsillar hypertrophy exudate or other lesions. NECK: Supple. CHEST: Clear to auscultation. No respiratory distress. No wheezes rales or rhonchi HEART: Regular rate and rhythm. No murmur heard. Normal peripheral pulses. ABDOMEN: slightly distended/ hypoactive bowel sounds + pain to the right upper quadrant / no lower abdominal pain with palpation EXTREMITIES: Normal range of motion. No edema. SKIN: Warm, dry, no rash. NEURO: No focal deficits. Alert and oriented x3. PSYCH: Normal mood and affect. Course Vital Signs Vital signs: Vital Signs Temperature 36.4 C 12/21/24 12:41 Pulse Rate 90 12/21/24 12:41 Respiratory Rate 16 12/21/24 12:41 Blood Pressure 171/97 H 12/21/24 12:41 Pulse Oximetry 97 12/21/24 12:41 Temperature 36.4 C 12/21/24 12:41 Pulse Rate 77 12/21/24 14:53 Respiratory Rate 16 12/21/24 14:53 Blood Pressure 157/84 H 12/21/24 14:53 Pulse Oximetry 99 12/21/24 14:53 Medical Decision Making MDM Narrative Medical decision making narrative: 64-year-old female with right right upper quadrant pain radiated to her back for 1 week it has been getting worse. Exam is concerning + abdominal distention, hypoactive bowel sounds, abdominal pain to the RUQ Also to note patient states she has a bail the urinate all day although she was p.m. last night. She was unable to give a urine sample for us here so we also did a bladder scan which did not show anything in her bladder. Concern for : ureterolithiasis/ pyelonephritis/ abdominal mass/ malignancy / SBO / CBC; no leukocytosis, hemodynamically stable CMP-creatinine 0.65, AST 42 Lipase-64 UA-1+ ketones blood CT abdomen pelvis-1. No acute intra-abdominal/pelvic process. Patient updated on labs and CT scan. She states that she is feeling little bit better and she thought maybe this was related to her chronic back pain and states that she will do is follow back up with her pain management and continue her home pain regimen and if anything gets worse or changes then she will return to the emergency department She denies any other questions or concerns Medical Records Medical records reviewed: Yes I reviewed the external patient's medical records. Vital Signs Vital Signs: Vital Signs Temperature 36.4 C 12/21/24 12:41 Pulse Rate 90 12/21/24 12:41 Respiratory Rate 16 12/21/24 12:41 Blood Pressure 171/97 H 12/21/24 12:41 Pulse Oximetry 97 12/21/24 12:41 Temperature 36.4 C 12/21/24 12:41 Pulse Rate 77 12/21/24 14:53 Respiratory Rate 16 12/21/24 14:53 Blood Pressure 157/84 H 12/21/24 14:53 Pulse Oximetry 99 12/21/24 14:53 Vitals reviewed by me Lab Data Lab results reviewed: Yes I reviewed the patient's lab results. 12/21/24 12:49 12/21/24 12:49 Labs: Lab Results 12/21/24 12/21/24 Range/Units 12:49 15:22 WBC 8.4 (4.5-10.0) K/mm3 RBC 4.78 (4.2-5.4) M/mm3 Hgb 14.0 (12.0-15.0) g/dL Hct 42.2 (37.0-47.0) % MCV 88.3 (80-100) fl MCH 29.3 (26-34) pg MCHC 33.2 (32-36) g/dl RDW 14.0 (11.5-14.5) % Plt Count 255 (150-375) k/mm3 MPV 9.2 (7.4-10.4) fl Immature Gran % (Auto) 0.6 H (0-0.5) % Neut % (Auto) 74.2 H (45.5-73.1) % Lymph % (Auto) 17.8 L (18.3-44.2) % [place] % (Auto) 6.3 (2.6-8.5) % Eos % (Auto) 0.6 (0-4.4) % Baso % (Auto) 0.5 (0.2-1.2) % Lymph # (Auto) 1.50 (0.9-3.2) K/mm3 Churchill # (Auto) 0.5 (0.1-0.6) K/mm3 Eos # (Auto) 0.1 (0-0.3) K/mm3 Baso # (Auto) 0.0 (0.0-0.1) K/mm3 Abs Immat Gran (auto) 0.05 H (0.00-0.031) K/mm3 Absolute Neuts (auto) 6.2 (1.3-6.7) K/mm3 Absolute Nucleated RBC 0.000 (0.0-0.012) K/mm3 Nucleated RBC % 0.0 (0.0-0.2) % Sodium 138 (137-145) mmol/L Potassium 3.9 (3.4-5.0) mmol/L Chloride 101 (98-107) mmol/L Carbon Dioxide 30 (22-30) mmol/L Anion Gap 7 (4-12) mmol/L BUN 13 (7-17) mg/dL Creatinine 0.65 L (0.7-1.0) mg/dL Estim Creat Clear Calc 77 ml/min Estimated GFR > 60 (59 - ) Glucose 103 (65-110) mg/dL Calcium 9.4 (8.4-10.2) mg/dL Total Bilirubin 0.7 (0.2-1.3) mg/dL AST 42 H (14-36) U/L ALT 35 (6-35) U/L Alkaline Phosphatase 119 (38-126) U/L Total Protein 7.8 (6.3-8.2) g/dL Albumin 4.5 (3.5-5.1) g/dL Lipase 64 (23-300) U/L Urine Color Yellow (Yellow) Urine Appearance Clear (Clear) Urine pH 6.0 (5.0-9.0) Ur Specific [place] > 1.045 H (1.001-1.035) Urine Protein Trace (Negative) mg/dL Urine Glucose (UA) Negative (Negative) mg/dL Urine Ketones 1+ H (Negative) mg/dL Ur Blood (Man) Trace (Negative) Urine Nitrate Negative (Negative) Urine Bilirubin Negative (Negative) Urine Urobilinogen 0.2 (<2.0) mg/dL Leukocyte Esterase Rfl Negative (Negative) LORA/UL Urine RBC 6-10 H (0-2) /hpf Urine WBC 0-5 (0-3) /hpf Ur Squamous Epith Cells None seen (Few) /hpf Urine Bacteria None seen /hpf Urine Casts 0-2 Imaging Data Radiologist's impression: Impressions Abdomen/Pelvis CT 12/21/24 15:46 IMPRESSION: 1. No acute intra-abdominal/pelvic process. Discharge Plan Discharge Clinical Impression: Back pain Qualifiers: Back pain location: back pain in other location Chronicity: unspecified Q ualified Code(s): M54.89 - Other dorsalgia Patient Disposition: Home Condition: Stable Instructions: Antibiotic Form Additional Instructions: Continue to take your pain medications at home and follow-up with your pain management doctor. If you develop any worsening symptoms or any other concerns otherwise return to the emergency department. Patient Language: Romansh Prescriptions: No Action cyclobenzaprine 10 mg tablet 10 mg PO QPM vitamin E (dl, acetate) 45 mg (100 unit) capsule 45 mg PO DAILY [id number]-Iw-Nk-manasa 250 mg-400 unit -40 mg-5 mg tablet 1 tablet PO DAILY hydroxyzine HCl 25 mg tablet PO gabapentin 300 mg capsule PO vitamin B97-qlsoy acid 500-400 mcg tablet 1 tablet PO DAILY Rx Instructions: administer with a meal oxycodone-acetaminophen [Percocet] 10-325 mg tablet 1 tablet PO Q6H PRN (Reason: Pain) Qty: 60 0RF Rx Instructions: Further fills through pain management. tramadol 50 mg tablet 50 mg PO Q8H Qty: 30 0RF Rx Instructions: Further fills through pain management. lisinopril 20 mg tablet 20 mg PO DAILY docusate sodium [Colace] 100 mg capsule 100 mg PO DAILY PRN (Reason: Constipation) multivitamin Tablet 1 tablet PO DAILY venlafaxine 75 mg capsule,extended release 24hr 75 mg PO DAILY Qty: 30 0RF Follow-up/Referrals: Anson Reed DO [Primary Care Provider] - 3 Days Time of Disposition: 16:30
--- OUTSIDE RECORDS SUMMARY | 2024-12-21 14:59 | XMS_ITS | Encounter Summary ---
Author Organization [facility] Address [address] [place] [address] Phone Care Team Providers Care Label Sewer Name Role Phone Anson Reed DO Primary Care Provider [phone] Raul Gardner MD, [facility]. Unavailable Anson Benjamin MD Unavailable Samir Frederick MD Unavailable [phone] Encounter Details Date Type Department Care Team (Late st Contact Info) Description 10/22/2019 Orders Only [facility] Oncology [address] [place] [address] [place] [address] Aime Cowart MD [address] [place] [address] Social History Tobacco Use Types Packs/Day Years [...] on file Legal Sex Female 10:23 AM [employer] TE[employer] Gender Identity Not on file Sexual Orientation [...] documented as of this encounter Care Teams Label Sewer Relationship Specialty Start Date End Date Anson Reed DO PCP - General 09/11/16 Alexsander Carter Jr., MD [address] [place] [address] Consulting Physician Pulmonary Disease 07/30/18 Anson Benjamin MD [address] [place] [address] Consulting Physician Orthopedic Surgery 07/30/18 Samir Frederick MD [address] [place] [address] Referring Physician Pain Management 04/03/20 05/19/23 documented as of this encounter
--- OUTSIDE RECORDS SUMMARY | 2024-12-21 14:59 | XMS_ITS | Clinical Summary ---
Author Organization [facility] Address [address] [place] [address] Care Team Providers Care Ems Instructor Name Role Phone Unavailable Primary Care Provider Unavailabl e Source Comments [facility],non-owned Affiliates and Associated Physician Practices is amultiple site organization consisting of ambulatory clinics and hospital sitesin [place], [place], [place] and [place]. This disclosure is being madepursuant to the Care Everywhere program and may not contain all information available regarding this patient. 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
--- OUTSIDE RECORDS SUMMARY | 2024-12-21 15:00 | XMS_ITS | Clinical Summary ---
Author Organization [facility] Address [address] [place] [address] Care Team Providers Care Airplane Dispatcher Name Role Phone Anson Reed DO Primary Care Provider [phone] Raul Gardner MD, [facility] [phone] Allergies Active Allergy Reactions Criticality Noted Date [...] L1-2 Posterior Lumbar Laminectomy, L1-L2 TLIF, Revision H43-[id number] Posterior Spinal Fusion with Instrumentation with ortho [...] (10/26/2020): Added automatically from request for surgery [id number] Hypertension 05/25/2020 Assessment & Plan (10/04/2023 9:39 [...] Team Description 11/15/2024 3:45 PM CDT Lab [facility] at [address] [address] Osteopenia of left hip 11/15/2024 2:00 PM CDT Office Visit [address] Medical Office Building [address] [place] [address] Arlene Mosqueda MD Osteopenia of left hip (Primary Dx) 11/15/2024 1:30 PM CDT Clinical Support [address] Medical [address] [place] [phone] Osteopenia of left hip (Primary Dx); Spinal stenosis of lumbar region with neurogenic claudication 11/15/[address] Medical Office Building [address] [place] [address] Arlene Mosqueda MD 11/11/2024 Orders Only [facility] Oncology [address] [facility] Floor 8 [place] [phone] Aime Cowart MD 11/04/2024 9:15 AM CDT Office Visit [facility] Orthopaedic Surgery [address] [facility] Medical Office Building [address] [place] [address] Nathan Clay MD Spinal stenosis of lumbar region with neurogenic claudication (Primary Dx); History of total bilateral knee replacement; Acute pain of right knee 11/04/2024 8:45 AM CDT - 11/04/2024 11:59 PM CDT Hospital Encounter [facility] [address] [place] [address] [address] [place] [address] Spinal stenosis of lumbar region with neurogenic claudication; S/P spinal fusion Discharge Disposition: Discharge to home or self care 10/04/2024 Orders Only [facility] Surgery [address] [place] [address] 4 [address] [place] [phone] Nathan Clay MD S/P spinal fusion (Primary Dx); Spinal stenosis of lumbar region with neurogenic claudication 10/04/2024 Orders Only [address] [place] [phone] Nathan Clay MD S/P spinal fusion (Primary Dx); Spinal stenosis of lumbar region with neurogenic claudication 10/01/2024 Orders Only [facility] Surgery [address] [place] [address] 4 [address] [place] [phone] Nathan Clay MD Spinal stenosis of lumbar [...] x3 LUMBAR FUSION 07/16/2018 re-do BACK SURGERY CT ARTHRP KNE CONDYLE&PLATU MEDIAL&LAT COMPARTMENTS Bilateral SPINAL [...] on file Legal Sex Female 10:23 AM PPAP COORDINATOR Gender Identity Not on file Sexual Orientation Not on file Obstetrics History Last Filed Vital Signs Vital Sign Reading Time Taken Comments Blood Pressure 146/86 06/29/2024 1:24 PM PPAP COORDINATOR Pulse 96 06/29/2024 1:24 PM PPAP COORDINATOR Temperature 36.7 C (98.1 F) 06/29/2024 1:24 PM PPAP COORDINATOR Respiratory Rate 18 06/29/2024 1:24 PM PPAP COORDINATOR Oxygen Saturation 95% 06/29/2024 1:24 PM PPAP COORDINATOR Inhaled Oxygen Concentration - - Weight 88 [...] home safety. Medical Devices Implanted Type Area Underground Repairer Device Identifier Shelf Expiration Date Model / Serial / Lot Graft 1-4mm 90cc Bone Cancellous Frozen - [id number] - [id number] Implanted:Qty: 1 on 05/29/[address] [facility] Bone N/A: Lumbar-S acral Spine [employer] 01/14/2025 [id number] / [id number] / Allosource [id number] Crushed Chip Frozen Graft 30ml Bone Cancellous - [id number] Implanted:Qty: 1 on 05/29/[address] [facility] Bone N/A: Lumbar-S acral Spine Allosource 01/24/2025 [id number] / / [id number] Allergan Usa Inc 671c-Xa-49-T Implant Mammary Natrelle Te Smooth 514s-Fy-09-T With Fourte - [id number] - [id number] Implanted:Qty: 1 on 10/12/2019 by Alexsander Nj MD at [facility] Breast Right: Breast [employer]ergan [employer] Inc 05/24/2024 188W-WE-99-T / [id number] / [id number] Description:Checked manufact urer's website and these breast tissue expanders are labeled MRI Unsafe JL 03/14/2020 Allergan Usa Inc Ssx-615 Natrelle Inspira Smooth Shell Surface Extra Full Profile Implant Latex Free - [id number] - [id number] Implanted:Qty: 1 on 12/21/2020 by Alexsander Nj MD at [facility] Breast Left: Breast [employer] [id number] 12/12/2024 SSX-615 / [id number] / [id number] Allergan [employer] Ssx-615 Natrelle Inspira Smooth Shell Surface Extra Full Profile Implant Latex Free - [id number] - [id number] Implanted:Qty: 1 on 12/21/2020 by Alexsander Nj MD at [facility] Breast Right: Breast [employer] Inc [id number] 04/12/2024 SSX-615 / [id number] / [id number] Medtronic Inc Cage Spinal Lumbar Plif Expandable Long Catalyft 7mm Titanium [id number] - Sna - [id number] Implanted:Qty: 1 on 09/29/2023 by Nathan Clay MD at [facility] Cage N/A: Lumbar-S acral Spine Medtronic Inc [id number] 08/21/2031 [id number] / NA / [id number] Description:IMPLANT PAUSE PE RFORMED Medtronic Inc Kit Graft Bone Sponge Xlg Infuse 8cc Granules [id number] - Sna - [id number] Implanted:Qty: 1 on 09/29/2023 by Nathan Clay MD at [facility] Graft N/A: Lumbar-S acral Spine Medtronic Inc 12/12/2024 [id number] / NA / [id number] Description:IMPLANT PAUSE PE RFORMED Acuity Surgical Inc Filler Bone Void Acupac Advanced Frozen 50cc 90-[id number] - [id number] - [id number] Implanted:Qty: 1 on 09/29/2023 by Nathan Clay MD at [facility] Graft N/A: Lumbar-S acral Spine [employer] Inc 11/29/2025 [id number] / [id number] / Description:IMPLANT PAUSE PE RFORMED [employer]uity [employer] Inc Tissue Bone Void Filler Acupac Plus 50cc [id number] - [id number] - [id number] Implanted:Qty: 1 on 09/29/2023 by Nathan Clay MD at [facility] Graft N/A: Lumbar-S acral Spine [employer] Inc 11/30/2025 [id number] / [id number] / Description:IMPLANT PAUSE PE RFORMED Medtronic Inc Cd Horizon 5.5mm 500mm Line Straight Ananda Spinal Titanium [id number] - Sna - [id number] Implanted:Qty: 1 on 09/29/2023 by Nathan Clay MD at [facility] Other - see comments N/A: Lumbar-S acral Spine Medtronic Inc [id number] / NA / Description:IMPLANT PAUSE PE RFORMED Medtronic Sofamor Danek [id number] Solera Cd Horizon 6.5mm 50mm Multiaxial Spine Screw Bone Cocr - [id number] Implanted:Qty: 4 on 05/29/2020 by Nathan Clay MD at [facility] Screw N/A: Lumbar-S acral Spine Medtronic Inc [id number] / / Medtronic Sofamor Danek [id number] Solera Cd Horizon 7.5mm 45mm Multiaxial Spine Screw Bone Cocr - [id number] Implanted:Qty: 2 on 05/29/2020 by Nathan Clay MD at [facility] Screw N/A: Lumbar-S acral Spine Medtronic Inc [id number] / / Medtronic Sofamor Danek [id number] Solera Cd Horizon 7.5mm 50mm Multiaxial Spine Screw Bone Cocr - [id number] Implanted:Qty: 2 on 05/29/2020 by Nathan Clay MD at [facility] Screw N/A: Lumbar-S acral Spine Medtronic Inc [id number] / / Medtronic Inc 8.5mm 50mm Multiaxial Spine Screw Bone [id number] - Sna - [id number] Implanted:Qty: 1 on 09/29/2023 by Nathan Clay MD at [facility] Screw N/A: Lumbar-S acral Spine Medtronic Inc [id number] / NA / Description:IMPLANT PAUSE PE RFORMED Medtronic Inc Solera Cd Horizon 5.5mm 50mm Multiaxial Spine Screw Bone Cocr [id number] - Sna - [id number] Implanted:Qty: 2 on 09/29/2023 by Nathan Clay MD at [facility] Screw N/A: Lumbar-S acral Spine Medtronic Inc [id number] / NA / Description:IMPLANT PAUSE PE RFORMED Medtronic Inc Solera Cd Horizon 6.5mm 50mm Multiaxial Spine Screw Bone Cocr [id number] - Sna - [id number] Implanted:Qty: 4 on 09/29/2023 by Nathan Clay MD at [facility] Screw N/A: Lumbar-S acral Spine Medtronic Inc [id number] / NA / Description:IMPLANT PAUSE PE RFORMED Medtronic Inc Solera Cd Horizon 7.5mm 50mm Multiaxial Spine Screw Bone Cocr [id number] - Sna - [id number] Implanted:Qty: 1 on 09/29/2023 by Nathan Clay MD at [facility] Screw N/A: Lumbar-S acral Spine Medtronic Inc [id number] / NA / Description:IMPLANT PAUSE PE RFORMED Medtronic Inc Cd Horizon Break Off Spinal Screw Set Titanium Nonsterile 5.5 Mm [id number] - Sna - [id number] Implanted:Qty: 18 on 09/29/2023 by Nathan Clay MD at [facility] Screw N/A: Lumbar-S acral Spine Medtronic Inc [id number] / NA / Description:IMPLANT PAUSE PE RFORMED Breast Implant Bilatera l: Breast Hardware N/A: Neck Cerapedics Inc 700-025 I Factor Allograft Putty Syringe Graft 2.5cc Bone - [id number] Implanted:Qty: 1 on 07/16/2018 by Anson Benjamin MD at [facility] Right: Lumbar-S acral Spine Cerapedics Inc 02/10/2021 700-025 / / [id number] Cerapedics Inc 700-025 I Factor Allograft Putty Syringe Graft 2.5cc Bone - Sn/A - [id number] Implanted:Qty: 1 on 07/16/2018 by Anson Benjamin MD at [facility] Left: Lumbar-S acral Spine Cerapedics Inc 02/10/2021 700-025 / N/A / [id number] Devicor Medical Products Inc [id number] Magtrace Liquid Marker 10 Vial Carton - [id number] Implanted:Qty: 1 on 10/12/2019 by Darlene Schroeder MD PhD at [facility] Right: Breast [employer] Inc 02/10/2020 [id number] / / [id number] Allergan Usa Inc 074u-Ch-08-T Implant Mammary Natrelle Te Smooth 255w-Ox-70-T With Fourte - [id number] - [id number] Implanted:Qty: 1 on 10/12/2019 by Alexsander Nj MD at [facility] Left: Breast Aller[employer] Inc 02/29/2024 975V-AO-33-T / [id number] / Description:Checked manufact urer's website and these breast tissue expanders are labeled MRI Unsafe JL 03/14/2020 Medtronic Inc [id number] 8.5mm 80mm Multiaxial Cannulated Thoracolumbar Screw Bone - [id number] Implanted:Qty: 2 on 05/29/2020 by Nathan Clay MD at [facility] N/A: Lumbar-S acral Spine Medtronic Inc [id number] / / Explanted Type Area Underground Repairer Device Identifier Shelf Expiration Date Model / Serial / Lot Allergan Tissue Dental Scheduling Coordinator Style Sfx 550cc Explanted:Qty: 1 on 12/21/2020 by Alexsander Nj MD at [facility] Breast Right: Breast Allergan Usa Inc / / [id number] Description:Implanted in Sep Allergan Tissue Dental Scheduling Coordinator Sstyle Sfx 550cc Explanted:Qty: 1 on 12/21/2020 by Alexsander Nj MD at [facility] Breast Left: Breast Allergan Usa Inc / / [id number] Description:Iplanted September 12 020 Screw Set Streamline Tl Screw System - Sn/A - [id number] Implanted:Qty: 6 on 07/16/2018 by Anson Benjamin MD at [facility] Explanted:Qty: 6 on 05/29/[address] [facility] Screw N/A: Lumbar-Sac ral Spine Rti Surgical Inc -SETSCREW / N/A / Screw 7.5mm X 35mm Srmlne Pedicle - [id number] Implanted:Qty: 2 on 07/16/2018 by Anson Benjamin MD at [facility] Explanted:Qty: 2 on 05/29/[address] [facility] Screw N/A: Lumbar-Sac ral Spine Rti Surgical Inc -PA-75-35 / / Screw 7.5mm X 40mm Srmlne Pedicle - Sn/A - [id number] Implanted:Qty: 2 on 07/16/2018 by Anson Benjamin MD at [facility] Explanted:Qty: 2 on 05/29/[address] [facility] Screw N/A: Lumbar-Sac ral Spine Rti Surgical Inc -PA75-40 / N/A / Screw 7.5mm X 45mm Srmlne Pedicle - Sn/A - [id number] Implanted:Qty: 1 on 07/16/2018 by Anson Benjamin MD at [facility] Explanted:Qty: 1 on 05/29/[address] [facility] Screw N/A: Lumbar-Sac ral Spine Rti Surgical Inc 01-PA-75-45 / N/A / Ananda Spinal Quantum Titanium L70 Mm Od5.5 Mm Prebent - Sn/A - [id number] Implanted:Qty: 2 on 07/16/2018 by Anson Benjamin MD at [facility] Explanted:Qty: 2 on 05/29/[address] [facility] N/A: Lumbar-Sac ral Spine Rti Surgical Inc 10-55-CT-70 / N/A / Screw 7.5mm X 40mm Srmlne Pedicle Explanted:Qty: 1 on 05/29/[address] [facility] N/A: Lumbar-Sac ral Spine Other Medtronic Sofamor Danek [id number] Cd Horizon Break Off Spinal Screw Set Titanium Nonsterile 5.5 Mm - [id number] Implanted:Qty: 12 on 05/29/2020 by Nathan Clay MD at [facility] Explanted:Qty: 12 on 09/29/2023 by Nathan Clay MD at [facility] N/A: Lumbar-Sac ral Spine Medtronic Inc [id number] / / Medtronic Sofamor Danek [id number] Cd Horizon 5.5mm 500mm Line Straight Ananda Spinal Titanium - [id number] Implanted:Qty: 1 on 05/29/2020 by Nathan Clay MD at [facility] Explanted:Qty: 1 on 09/29/2023 by Nathan Clay MD at [facility] N/A: Lumbar-Sac ral Spine Medtronic Inc [id number] / / Procedures Procedure Name Priority Date/Time [...] Read Routine (OP Routine) 07/28/2019 3:52 PM PPAP COORDINATOR Encounter for screening mammogram for malignant neoplasm of breast from Last 3 Months or Most Recently Relevant to Health Maintenance Results * Alkaline phosphatase, bone specific (11/15/2024 3:12 PM CDT) Alk phos, bone 23 mcg/L [facility] Comment: REFERENCE VALUE <=14 (Premenopausal) <=22 (Postmenopausal) ADDITIONAL INFORMATION Liver-derived alkaline phosphatase (ALP) increases apparent measured bone alkaline phosphatase (BAP) in this assay by 2.5 mcg/L to 5.8 mcg/L for every 100 U/L of liver ALP. Accordingly, serum specimens with significant elevations of liver ALP activity may yield artificially elevated results in the BAP assay. Test Performed by: [facility] [place] [employer] [address] [place] [address] Pet Care Worker: Antonio Olvera Ph.D.; CLIA# [id number] Testing performed by: [facility], [address] [facility] [address], [place] [address] Blood 11/15/2024 3:12 PM CDT 11/15/2024 4:05 PM CDT Arlene Mosqueda MD LAB BLOOD ORDERABLE S Final Result [facility] [address]. [place] [address] [facility] * Protein electrophoresis with reflex, serum with interpretation (11/15/2024 3:12 PM CDT) Protein, sr 7.2 6.2 - 8.2 g/dL Comment:Testing performed by : [facility], [address] [place] [address]., [address] Albumin 4.2 3.2 - 5.0 g/dL [facility] Comment:Testing performed by : [facility], [address] [place] [address]., [address] Alpha-1 globulin 0.3 0.2 - 0.4 g/dL [facility] Comment:Testing performed by : [facility], [address] [place] [address]., [address] Alpha-2 globulin 0.9 0.5 - 1.0 g/dL [facility] Comment:Testing performed by : [facility], [address] [place] [address]., [address] Beta-1 globulin 0.5 0.3 - 0.6 g/dL [facility] Comment:Testing performed by : [facility], [address] [place] [address]., [address] Beta-2 globulin 0.4 0.2 - 0.6 g/dL [facility] Comment:Testing performed by : [facility], [address] [place]., [address] Gamma globulin 0.9 0.5 - 1.7 g/dL RAYRAY GIFFORD Comment:Testing performed by : [facility], [address] [place] [address]., [address] SPEP interp See Comment RAYRAY GIFFORD Comment: SPEP INTERPRETATION: No apparent monoclonal peak Testing performed by: [facility], [address] [place] [address]., [address] Blood 11/15/2024 3:12 PM CDT 11/15/2024 6:01 PM CDT Arlene Mosqueda MD LAB BLOOD ORDERABLE S Final Result Performing Organization Address City/[facility] Co de Phone Number RAYRAY [facility] [address]. [facility] [employer] [place], [place] [id number] * Phosphorus (11/15/2024 3:12 PM CDT) [facility] Phosphorus, pl 4.1 2.3 - 4.5 mg/dL Comment:Testing performed by : [facility], [address], [place] [address] Blood 11/15/2024 3:12 PM CDT 11/15/2024 4:05 PM CDT Arlene Mosqueda MD LAB BLOOD ORDERABLE S Final Result Performing Organization Address City/[facility]/ZIP Co de Phone Number [facility]RAY [facility] [address] [employer] [facility]. [facility] [place] [address] * Dexa TBS Axial Skeleton Bone Density [...] by the International Society of Clinical Densitometry. [id number] Coretta Bennett MD IM DXA PROCEDURES Final [...] PM CDT) Hep A IgM Nonreactive Nonreactive [facility] Comment: Interpretive Data: If Hep A IgM Ab is reported as Equivocal, a new sample should be drawn in two weeks for testing. Current interpretive data was last revised on 19. Hep B core IgM Nonreactive Nonreactive [facility] Comment: Interpretive Data If HepB Core IgM Ab is reported as Equivocal, a new sample should be drawn in two weeks for testing. Current interpretive data was last revised on 19. Hep C Ab Nonreactive Nonreactive [facility] HepBsAg Nonreactive Nonreactive [facility] Blood specimen (specimen) 11/03/2019 1:18 PM CDT 11/03/2019 2:07 PM CDT us Aime Cowart MD LAB MICROBIO LOGY - GENERAL ORDERABLES Edited Result - Final [facility] PARRISH [facility] [place] [address] * Screening Mammogram Bilateral w Jose R w Implants (07/28/2019 3:52 PM PPAP COORDINATOR) Anatomical Region Laterality Modality Breast Bilateral Mammography Narrative 07/29/2019 7:48 AM PPAP COORDINATOR Mammogram Technique: Bilateral Digital Breast Tomosynthesis, Bilateral C-view 2D Screening mammogram. Views obtained: bilateral craniocaudal; bilateral craniocaudal implant displaced; bilateral mediolateral oblique; and bilateral mediolateral oblique implant displaced. Computer Aided Detection was performed. Mammogram Findings: The present examination has been compared to prior imaging studies performed at [facility] on 09/11/2016, 09/17/2017 and 05/12/2018. There [...] to prior imaging studies performed at [facility] on 09/11/2016, 09/17/2017 and 05/12/2018. There [...] Most Recently Relevant to Health Maintenance Insurance [employer] [facility] [employer] [place] BLUE ACCESS OOS [place] ACCESS BLUE ACCESS OOS [employer] OOS Advance Directives For more information, please contact: [phone] * Full Code (Latest Code Status on [...] 10:20 PM 07/30/2018 5:29 PM Care Teams Airplane Dispatcher Relationship Specialty Start Date End Date Anson Reed DO PCP - General 09/11/16 Alexsander Carter Jr., MD [address] [address] Consulting Physician Pulmonary Disease 07/30/18
--- OUTSIDE RECORDS SUMMARY | 2024-12-21 15:00 | XMS_ITS | Referral Summary ---
Author Organization [facility] Address [address] [place] [address] Care Team Providers Care Quality Management Nurse Name Role Phone Anson Reed DO Primary Care Provider [phone]- [phone] Raul Gardner MD, [facility] Un[facility] Encounters Date Type Department Care Team Description 11/15/[address] Medical Office Building [address] [place] [address] Arlene Mosqueda MD 11/15/2024 3:45 PM CDT Lab [facility] at [address] [phone] Osteopenia of left hip 11/15/2024 2:00 PM CDT Office Visit [address] Medical Office Building [address] [place] [phone] Arlene Mosqueda MD Osteopenia of left hip (Primary Dx) 11/15/2024 1:30 PM CDT Clinical Support [address] Medical Office Building [address] [place] [phone] Osteopenia of left hip (Primary Dx); Spinal stenosis of lumbar region with neurogenic claudication 11/11/2024 Orders Only [facility] Oncology [address] [facility] [address] [place] [address] Aime Cowart MD 11/04/2024 8:45 AM CDT - 11/04/2024 11:59 PM CDT Hospital Encounter [facility] [address] [place] [address] [address] [place] [phone] Spinal stenosis of lumbar region with neurogenic claudication; S/P spinal fusion Discharge Disposition: Discharge to home or self care 11/04/2024 9:15 AM CDT Office Visit [facility] Orthopaedic Surgery [address] [place] [address] Medical Office [facility] [address] [place] [address] Nathan Clay MD Spinal stenosis of lumbar region with neurogenic claudication (Primary Dx); History of total bilateral knee replacement; Acute pain of right knee 10/04/2024 Orders Only [facility] Orthopaedic Surgery [address] [place] [address] Office [facility] [address] [place] [phone] Nathan Clay MD S/P spinal fusion (Primary Dx); Spinal stenosis of lumbar region with neurogenic claudication 10/04/2024 Orders Only [facility] Orthopaedic Surgery [address] [place] [address] [address] [place] [phone] Nathan Clay MD S/P spinal fusion (Primary Dx); Spinal stenosis of lumbar region with neurogenic claudication 10/01/2024 Orders Only [facility] Orthopaedic Surgery [address] [place] [address] Medical Office [facility] [address] [place] [phone] Nathan Clay MD Spinal stenosis of lumbar [...] L1-2 Posterior Lumbar Laminectomy, L1-L2 TLIF, Revision [id number] Posterior Spinal Fusion with Instrumentation with ortho [...] (10/26/2020): Added automatically from request for surgery [id number] Hypertension 05/25/2020 Assessment & Plan (10/04/2023 9:39 [...] on file Legal Sex Female 10:23 AM MANAGER CONCRETE Gender Identity Not on file Sexual Orientation Not on file Last Filed Vital Signs Vital Sign Reading Time Taken Comments Blood Pressure 146/86 06/29/2024 1:24 PM MANAGER CONCRETE Pulse 96 06/29/2024 1:24 PM MANAGER CONCRETE Temperature 36.7 C (98.1 F) 06/29/2024 1:24 PM MANAGER CONCRETE Respiratory Rate 18 06/29/2024 1:24 PM MANAGER CONCRETE Oxygen Saturation 95% 06/29/2024 1:24 PM MANAGER CONCRETE Inhaled Oxygen Concentration - - Weight 88 [...] on stairs Contact your local community or [facility] for information on exercise, fall prevention programs, or options for improving home safety. Medical Devices Implanted Type Area Ssas Developer Device Identifier Shelf Expiration Date Model / Serial / Lot Graft 1-4mm 90cc Bone Cancellous Frozen - [id number] - [id number] Implanted:Qty: 1 on 05/29/2020 at [facility] Bone N/A: Lumbar-S acral Spine [employer] 01/14/2025 [id number] / [id number] / Allosource [id number] Crushed Chip Frozen Graft 30ml Bone Cancellous - [id number] Implanted:Qty: 1 on 05/29/2020 at [facility] Bone N/A: Lumbar-S acral Spine Allosource 01/24/2025 [id number] / / [id number] Allergan Usa Inc 175v-Bi-16-T Implant Mammary Natrelle Te Smooth 397j-Da-92-T With Fourte - [id number] - [id number] Implanted:Qty: 1 on 10/12/2019 by Alexsander Nj MD at [facility] Breast Right: Breast Allergan Usa Inc 05/24/2024 122H-AE-02-T / [id number] / [id number] Description:Checked manufact urer's website and these breast tissue expanders are labeled MRI Unsafe JL 03/14/2020 Allergan Usa Inc Ssx-615 Natrelle Inspira Smooth Shell Surface Extra Full Profile Implant Latex Free - [id number] - [id number] Implanted:Qty: 1 on 12/21/2020 by Alexsander Nj MD at [facility] Breast Left: Breast Allergan Usa Inc [id number] 12/12/2024 SSX-615 / [id number] / [id number] Allergan Usa Inc Ssx-615 Natrelle Inspira Smooth Shell Surface Extra Full Profile Implant Latex Free - [id number] - [id number] Implanted:Qty: 1 on 12/21/2020 by Alexsander Nj MD at [facility] Breast Right: Breast Allergan Usa Inc [id number] 04/12/2024 SSX-615 / [id number] / [id number] Medtronic Inc Cage Spinal Lumbar Plif Expandable Long Catalyft 7mm Titanium [id number] - Sna - [id number] Implanted:Qty: 1 on 09/29/2023 by Nathan Clay MD at [facility] Cage N/A: Lumbar-S acral Spine Medtronic Inc [id number] 08/21/2031 [id number] / NA / [id number] Description:IMPLANT PAUSE PE RFORMED Medtronic Inc Kit Graft Bone Sponge Xlg Infuse 8cc Granules [id number] - Sna - [id number] Implanted:Qty: 1 on 09/29/2023 by Nathan Clay MD at [facility] Graft N/A: Lumbar-S acral Spine Medtronic Inc 12/12/2024 [id number] / NA / [id number] Description:IMPLANT PAUSE PE RFORMED Acuity [employer] Inc Filler Bone Void Acupac Advanced Frozen 50cc 90-[id number] - [id number] - [id number] Implanted:Qty: 1 on 09/29/2023 by Nathan Clay MD at [facility] Graft N/A: Lumbar-S acral Spine [employer] Inc 11/29/2025 [id number] / [id number] / Description:IMPLANT PAUSE PE RFORMED Acuity [employer] Inc Tissue Bone Void Filler Acupac Plus 50cc [id number] - [id number] - [id number] Implanted:Qty: 1 on 09/29/2023 by Nathan Clay MD at [facility] Graft N/A: Lumbar-S acral Spine [employer] Inc 11/30/2025 [id number] / [id number] / Description:IMPLANT PAUSE PE RFORMED Medtronic Inc Cd Horizon 5.5mm 500mm Line Straight Ananda Spinal Titanium [id number] - Sna - [id number] Implanted:Qty: 1 on 09/29/2023 by Nathan Clay MD at [facility] Other - see comments N/A: Lumbar-S acral Spine Medtronic Inc [id number] / NA / Description:IMPLANT PAUSE PE RFORMED Medtronic Sofamor Danek [id number] Solera Cd Horizon 6.5mm 50mm Multiaxial Spine Screw Bone Cocr - [id number] Implanted:Qty: 4 on 05/29/2020 by Nathan Clay MD at [facility] Screw N/A: Lumbar-S acral Spine Medtronic Inc [id number] / / Medtronic Sofamor Danek [id number] Solera Cd Horizon 7.5mm 45mm Multiaxial Spine Screw Bone Cocr - [id number] Implanted:Qty: 2 on 05/29/2020 by Nathan Clay MD at [facility] Screw N/A: Lumbar-S acral Spine Medtronic Inc [id number] / / Medtronic Sofamor Danek [id number] Solera Cd Horizon 7.5mm 50mm Multiaxial Spine Screw Bone Cocr - [id number] Implanted:Qty: 2 on 05/29/2020 by Nathan Clay MD at [facility] Screw N/A: Lumbar-S acral Spine Medtronic Inc [id number] / / Medtronic Inc 8.5mm 50mm Multiaxial Spine Screw Bone [id number] - Sna - [id number] Implanted:Qty: 1 on 09/29/2023 by Nathan Clay MD at [facility] Screw N/A: Lumbar-S acral Spine Medtronic Inc [id number] / NA / Description:IMPLANT PAUSE PE RFORMED Medtronic Inc Solera Cd Horizon 5.5mm 50mm Multiaxial Spine Screw Bone Cocr [id number] - Sna - [id number] Implanted:Qty: 2 on 09/29/2023 by Nathan Clay MD at [facility] Screw N/A: Lumbar-S acral Spine Medtronic Inc [id number] / NA / Description:IMPLANT PAUSE PE RFORMED Medtronic Inc Solera Cd Horizon 6.5mm 50mm Multiaxial Spine Screw Bone Cocr [id number] - Sna - [id number] Implanted:Qty: 4 on 09/29/2023 by Nathan Clay MD at [facility] Screw N/A: Lumbar-S acral Spine Medtronic Inc [id number] / NA / Description:IMPLANT PAUSE PE RFORMED Medtronic Inc Solera Cd Horizon 7.5mm 50mm Multiaxial Spine Screw Bone Cocr [id number] - Sna - [id number] Implanted:Qty: 1 on 09/29/2023 by Nathan Clay MD at [facility] Screw N/A: Lumbar-S acral Spine Medtronic Inc [id number] / NA / Description:IMPLANT PAUSE PE RFORMED Medtronic Inc Cd Horizon Break Off Spinal Screw Set Titanium Nonsterile 5.5 Mm [id number] - Sna - [id number] Implanted:Qty: 18 on 09/29/2023 by Nathan Clay MD at [facility] Screw N/A: Lumbar-S acral Spine Medtronic Inc [id number] / NA / Description:IMPLANT PAUSE PE RFORMED Breast Implant Bilatera l: Breast Hardware N/A: Neck Cerapedics Inc 700-025 I Factor Allograft Putty Syringe Graft 2.5cc Bone - [id number] Implanted:Qty: 1 on 07/16/2018 by Anson Benjamin MD at [facility] Right: Lumbar-S acral Spine Cerapedics Inc 02/10/2021 700-025 / / [id number] Cerapedics Inc 700-025 I Factor Allograft Putty Syringe Graft 2.5cc Bone - Sn/A - [id number] Implanted:Qty: 1 on 07/16/2018 by Anson Benjamin MD at [facility] Left: Lumbar-S acral Spine Cerapedics Inc 02/10/2021 700-025 / N/A / [id number] Devicor Medical Products Inc [id number] Magtrace Liquid Marker 10 Vial Carton - [id number] Implanted:Qty: 1 on 10/12/2019 by Darlene Schroeder MD PhD at [facility] Right: Breast [employer] Inc 02/10/2020 [id number] / / [id number] Allergan Usa Inc 928k-Qz-31-T Implant Mammary Natrelle Te Smooth 576m-Ai-82-T With Fourte - [id number] - [id number] Implanted:Qty: 1 on 10/12/2019 by Alexsander Nj MD at [facility] Left: Breast Allergan Usa Inc 02/29/2024 182H-UP-30-T / [id number] / Description:Checked manufact urer's website and these breast tissue expanders are labeled MRI Unsafe JL 03/14/2020 Medtronic Inc [id number] 8.5mm 80mm Multiaxial Cannulated Thoracolumbar Screw Bone - [id number] Implanted:Qty: 2 on 05/29/2020 by Nathan Clay MD at [facility] N/A: Lumbar-S acral Spine Medtronic Inc [id number] / / Explanted Type Area Ssas Developer Device Identifier Shelf Expiration Date Model / Serial / Lot Allergan Tissue Senior Accounting Associate Style Sfx 550cc Explanted:Qty: 1 on 12/21/2020 by Alexsander Nj MD at [facility] Breast Right: Breast Allergan Usa Inc / / [id number] Description:Implanted in Sep Allergan Tissue Senior Accounting Associate Sstyle Sfx 550cc Explanted:Qty: 1 on 12/21/2020 by Alexsander Nj MD at [facility] Breast Left: Breast Allergan Usa Inc / / [id number] Description:Iplanted September 12 020 Screw Set Streamline Tl Screw System - Sn/A - [id number] Implanted:Qty: 6 on 07/16/2018 by Anson Benjamin MD at [facility] Explanted:Qty: 6 on 05/29/2020 at [facility] Screw N/A: Lumbar-Sac ral Spine Rti Surgical Inc 01-SETSCREW / N/A / Screw 7.5mm X 35mm Srmlne Pedicle - [id number] Implanted:Qty: 2 on 07/16/2018 by Anson Benjamin MD at [facility] Explanted:Qty: 2 on 05/29/2020 at [facility] Screw N/A: Lumbar-Sac ral Spine Rti Surgical Inc -PA-75-35 / / Screw 7.5mm X 40mm Srmlne Pedicle - Sn/A - [id number] Implanted:Qty: 2 on 07/16/2018 by Anson Benjamin MD at [facility] Explanted:Qty: 2 on 05/29/2020 at [facility] Screw N/A: Lumbar-Sac ral Spine Rti Surgical Inc PA-75-40 / N/A / Screw 7.5mm X 45mm Srmlne Pedicle - Sn/A - [id number] Implanted:Qty: 1 on 07/16/2018 by Anson Benjamin MD at [facility] Explanted:Qty: 1 on 05/29/2020 at [facility] Screw N/A: Lumbar-Sac ral Spine Rti Surgical Inc PA-75-45 / N/A / Ananda Spinal Quantum Titanium L70 Mm Od5.5 Mm Prebent - Sn/A - [id number] Implanted:Qty: 2 on 07/16/2018 by Anson Benjamin MD at [facility] Explanted:Qty: 2 on 05/29/2020 at [facility] N/A: Lumbar-Sac ral Spine Rti Surgical Inc 10-55-OK-70 / N/A / Screw 7.5mm X 40mm Srmlne Pedicle Explanted:Qty: 1 on 05/29/2020 at [facility] N/A: Lumbar-Sac ral Spine Other Medtronic Sofamor Danek [id number] Cd Horizon Break Off Spinal Screw Set Titanium Nonsterile 5.5 Mm - [id number] Implanted:Qty: 12 on 05/29/2020 by Nathan Clay MD at [facility] Explanted:Qty: 12 on 09/29/2023 by Nathan Clay MD at [facility] N/A: Lumbar-Sac ral Spine Medtronic Inc [id number] / / Medtronic Sofamor Danek [id number] Cd Horizon 5.5mm 500mm Line Straight Ananda Spinal Titanium - [id number] Implanted:Qty: 1 on 05/29/2020 by Nathan Clay MD at [facility] Explanted:Qty: 1 on 09/29/2023 by Nathan Clay MD at [facility] N/A: Lumbar-Sac ral Spine Medtronic Inc [id number] / / Procedures Procedure Name Priority Date/Time [...] Read Routine (OP Routine) 07/28/2019 3:52 PM MANAGER CONCRETE Encounter for screening mammogram for malignant neoplasm of breast from Last 3 Months or Most Recently Relevant to Health Maintenance Results * Alkaline phosphatase, bone specific (11/15/2024 3:12 PM CDT) Alk phos, bone 23 mcg/L [facility] Comment: REFERENCE VALUE <=14 (Premenopausal) <=22 (Postmenopausal) ADDITIONAL INFORMATION Liver-derived alkaline phosphatase (ALP) increases apparent measured bone alkaline phosphatase (BAP) in this assay by 2.5 mcg/L to 5.8 mcg/L for every 100 U/L of liver ALP. Accordingly, serum specimens with significant elevations of liver ALP activity may yield artificially elevated results in the BAP assay. Test Performed by: [facility] [address] [facility], [place] [address] Second Operator: Antonio Olvera Ph.D.; CLIA# [id number] Testing performed by: , [id number] [facility], [place] [address] Blood 11/15/2024 3:12 PM CDT 11/15/2024 4:05 PM CDT Arelne Mosqueda MD LAB BLOOD ORDERABLE S Final Result RAYRAY SHARIF [id number] [address] [facility]. [place] [address] [facility] * Protein electrophoresis with reflex, serum with interpretation (11/15/2024 3:12 PM CDT) Protein, sr 7.2 6.2 - 8.2 g/dL Comment:Testing performed by : [facility], [address] [place] [address]., [address] Albumin 4.2 3.2 - 5.0 g/dL RAYRAY GIFFORD Comment:Testing performed by : [facility], [address] [place] [address]., [address] Alpha-1 globulin 0.3 0.2 - 0.4 g/dL RAYRAY GIFFORD Comment:Testing performed by : [facility], [address] [place] [address]., [address] Alpha-2 globulin 0.9 0.5 - 1.0 g/dL RAYRAY GIFFORD Comment:Testing performed by : [facility], [address] [place] [address]., [address] Beta-1 globulin 0.5 0.3 - 0.6 g/dL RAYRAY GIFFORD Comment:Testing performed by : [facility], [address] [place] [address]., [address] Beta-2 globulin 0.4 0.2 - 0.6 g/dL RAYRAY GIFFORD Comment:Testing performed by : [facility], [address] [place] [address]., [address] Gamma globulin 0.9 0.5 - 1.7 g/dL RAYRAY GIFFORD Comment:Testing performed by : [facility], [address] [place] [address]., [address] SPEP interp See Comment RAYRAY GIFFORD Comment: SPEP INTERPRETATION: No apparent monoclonal peak Testing performed by: [facility], [address] [place] [address]., [id number] Blood 11/15/2024 3:12 PM CDT 11/15/2024 6:01 PM CDT Arlene Mosqueda MD LAB BLOOD ORDERABLE S Final Result Performing Organization Address City/[facility]/ZIP Co de Phone Number [facility] [address] [facility] [address] * Phosphorus (11/15/2024 3:12 PM CDT) [facility] Phosphorus, pl 4.1 2.3 - 4.5 mg/dL Comment:Testing performed by : , [id number] [facility], [place] [address] Blood 11/15/2024 3:12 PM CDT 11/15/2024 4:05 PM CDT Arlene Mosqueda MD LAB BLOOD ORDERABLE S Final Result [facility] [address] [facility]. [facility] [place] [address] * Dexa TBS Axial Skeleton Bone Density 1 or more sites (11/15/2024 1:48 PM CDT) Anatomical Region Laterality Modality Wrist, Body N/A Radiographic Kristin ging Narrative 11/15/2024 3:26 PM CDT Patient Name: Ailyn Farha Date of : 1960 Date of scan: 11/15/2024 Bone mineral density was performed on a HoloAPX Discovery Densitometer. Based on machine cross-calibration and [...] by the International Society of Clinical Densitometry. [id number] us Coretta Bennett MD IMG DXA PROCEDURES [...] GENERAL ORDERABLES Edited Result - Final RAYRAY [facility] [place] [address] * Screening Mammogram Bilateral w Jose R w Implants (07/28/2019 3:52 PM MANAGER CONCRETE) Anatomical Region Laterality Modality Breast Bilateral Mammography Narrative 07/29/2019 7:48 AM MANAGER CONCRETE Mammogram Technique: Bilateral Digital Breast Tomosynthesis, Bilateral C-view 2D Screening mammogram. Views obtained: bilateral craniocaudal; bilateral craniocaudal implant displaced; bilateral mediolateral oblique; and bilateral mediolateral oblique implant displaced. Computer Aided Detection was performed. Mammogram Findings: The present examination has been compared to prior imaging studies performed at [facility] on 09/11/2016, 09/17/2017 and 05/12/2018. There [...] compared to prior imaging studies performed at [facility] on 09/11/2016, 09/17/2017 and 05/12/2018. There [...] Most Recently Relevant to Health Maintenance [place] [id number] [employer] [facility] Address: [facility] [address] [place] [address] [place] [phone] [facility] [place] [place] BLUE ACCESS OOS ANTHEM ACCESS [place] [address] [place] [address] BLUE ACCESS OOS [employer] OOS Advance Directives For more information, please contact: [phone] * Full Code (Latest Code Status on [...] 10:20 PM 07/30/2018 5:29 PM Care Teams Quality Management Nurse Relationship Specialty Start Date End Date Anson Reed DO PCP - General 09/11/16 Alexsander Carter Jr., MD [address] [facility] [address] [place] [address] Consulting Physician Pulmonary Disease 07/30/18
--- OUTSIDE RECORDS SUMMARY | 2024-12-21 15:00 | XMS_ITS ---
Author Organization [facility] Address [address] [place] [address] Care Team Providers Care Manager Intermediate Name Role Phone Anson Reed DO Primary Care Provider [phone] Raul Gardner MD, [facility]. Unavailable [phone] Active Problems Problem Noted Date Diagnosed Date [...] L1-2 Posterior Lumbar Laminectomy, L1-L2 TLIF, Revision [id number] Posterior Spinal Fusion with Instrumentation with ortho [...] (10/26/2020): Added automatically from request for surgery [id number] Hypertension 05/25/2020 Assessment & Plan (10/04/2023 9:39 [...]
[2024-12-21 15:40] LABS: Add Urine Microscopic? YES; Appearance Urine Clear (Clear); Bacteria Urine None Seen /hpf; Bilirubin Urine Negative (Negative); Blood Urine Trace (Negative); Color Urine Yellow (Yellow); Glucose Urine UA Negative (Negative); Ketones Urine 1+ mg/dL (Negative); Leukocyte Esterase Ur Negative LEU/UL (Negative); Nitrate Urine Negative (Negative); Non Pathogenic Casts 0-2; Protein Urine Trace mg/dL (Negative); Specific Grav Ur > 1.045 (1.001-1.035); Squamous Epithelial Cell Urine None Seen /hpf (Few); Urobilinogen Urine 0.2 mg/dL (<2.0); WBC Urine 0-5 /hpf (0-3)
== END 2024-12-21 16:51 | disposition home or self-care (01) ==
PROVIDERS: Emergency Medicine; Emergency Provider Nurse Practitioner Family; PCP Internal Medicine
DX: M54.89 Other dorsalgia (principal); G89.29 Other chronic pain; I10 Essential (primary) hypertension; M19.90 Unspecified osteoarthritis, unspecified site; M85.80 Other specified disorders of bone density and structure, unspecified site; Z96.659 Presence of unspecified artificial knee joint; Z98.1 Arthrodesis status; Z87.01 Personal history of pneumonia (recurrent); Z85.3 Personal history of malignant neoplasm of breast; Z90.13 Acquired absence of bilateral breasts and nipples; Z90.49 Acquired absence of other specified parts of digestive tract; Z90.710 Acquired absence of both cervix and uterus; Z79.899 Other long term (current) drug therapy
CPT/HCPCS: 36415; 74177; 80053; 81001; 83690; 85025; 96374; 96375; 99284; J2270; J2405; Q9967

== ENCOUNTER 2025-06-14 00:47 | Day surgery (SDC) | payer BC, MEDICARE, SELFPAY ==
[2025-05-26 10:51] VITALS: BMI 34.7
[2025-06-14 06:15] VITALS: BP 152/83; PULSE 79; RESP 14; TEMP 36.2; O2SAT 98; BMI 35.6
[2025-06-14] MEDS: LACTATED RINGERS 1,000 ML 150 ML IV CONT (06:34)
--- NOTE | 2025-06-14 07:05 | P.PNAN_ITS ---
Anes - Initial Pre Proc Eval Procedure: Operation Date: 06/14/25 07:30 Proposed Procedures p Screening Colonoscopy - Mazin Sy MD Date/Time: 06/14/25 07:05 Surgeon: Mazin Sy MD Pre Op Diagnosis: Personal history of colon polyps, unspecified Patient Data Age: 65 Gender: F Height: 1.57 m Weight: 88.3 kg Last Vital Signs Temp 36.2 C L 06/14/25 06:15 Pulse 79 06/14/25 06:15 Resp 14 06/14/25 06:15 BP 152/83 H 06/14/25 06:15 Pulse Ox 98 06/14/25 06:15 O2 Del Method Room Air 06/14/25 06:15 Allergies Allergy/AdvReac Type Severity Reaction Status Date / Time Sulfa (Sulfonamide Allergy Unknown Unknown Verified 06/14/25 06:21 Antibiotics) cyclophosphamide Allergy chest Verified 06/14/25 06:21 tightness and wheezing Home Medications ?Medication ?Instructions ?Recorded ?Confirmed ?Type docusate sodium 100 mg capsule 100 mg PO DAILY PRN Con stipation 03/22/20 05/26/25 History (Colace) multivitamin 1 tablet PO DAILY 03/22/20 1 08/15/24 History lisinopril 20 mg tablet 20 mg PO DAILY 06/24/2209/07 History cyclobenzaprine 10 mg tablet 10 mg PO QPM 10/30/2209/07 History calcium 250 mg-D3 400 1 tablet PO DAILY 11/25/22 1 08/15/24 History unit-magnesium 40 [id number]-[id number]-Ss-copper-manasa tablet tramadol 50 mg tablet 50 mg PO Q8H Use for breakth rough 01/06/24 06/14/25 Rx pain #30 tabs vitamin B12 500 mcg-folic acid 400 1 tablet PO DAILY 0 01/06/24 06/14/25 History mcg tablet hydroxyzine HCl 25 mg tablet 25 mg PO TID PRN anxiety 11/11/24 05/26/25 History duloxetine 30 mg capsule,delayed 30 mg PO DAILY 06/14/25 History release morphine 15 mg tablet,extended 30 mg PO HS 05/26/25 History release nabumetone 500 mg tablet 500 mg PO BID 05/26/2506/14 History oxycodone-acetaminophen 10 mg-325 1 tablet PO Q6H 05/1406/14/25 History mg tablet (Percocet) Patient hx anesthesia problems: none Family hx anesthesia problems: none Results Review: All pre-operative results and documents have been reviewed as part of the pre- operative evaluation. FOR[facility]LY [facility] Past Medical History Medical History Chronic pain with drug dependence Chemotherapy-induced peripheral neuropathy Erosive (osteo)arthritis Chronically on opiate therapy Chronic back pain Pneumonia Cancer of right breast Status post mastectomy and chemotherapy. Hypertension Left lower lobe pneumonia Preoperative clearance Thyroid nodule Insomnia Osteopenia Osteoarthritis Heartburn Surgical History Surgical History H/O spinal fusion History of bilateral mastectomy (10/12/19) History of cholecystectomy History of knee replacement History of breast augmentation History of hysterectomy History of back surgery Family History Family History Other Unknown family medical history Social History Social History Social History: Surrogate medical decision maker: Abisai hillman, spouse or Vivien Hillman, daughter. Code status: Full code. Smoking status: Never smoker Alcohol intake: current Substance use: never Substance use type: does not use Lack of Transportation: No Lack of Food: Never True Current Housing: I Have Housing Concerned About Future Housing: No Difficulty Paying Gas/Electric Bills: No Difficulty Paying for Meds: No Currently Unemployed: No Education: Associate Degree Difficulty w/ Childcare or Family Care: No Spiritual care concerns: No Anes - Eval Final PreProcedure Day of Procedure 06/14/25 07:05 Patient weight: obese Heart: regular rate and rhythm Lungs: clear to auscultation Airway: Mallampati scale class II Neurological: alert and oriented Last oral intake: >/= 8 hours ASA classification: III Emergent: no Anesthetic plan: proceed Anesthesia type and monitoring: general GIVS and standard monitoring Results Review: All pre-operative results and documents have been reviewed as part of the pre- operative evaluation. Informed Consent: The patient's anesthetic plan and its attendant risks and benefits were discussed with the patient/family/POA. Questions were solicited and answers provided to the satisfaction of the patient/family/POA.
--- NOTE | 2025-06-14 07:33 | PM.HPGS ---
History of Present Illness History of Present Illness Consent: Risks, benefits, and alternatives have been discussed and questions answered. Patient agrees to proceed with procedure. Chief complaint: Personal history of colon polyps, unspecified Narrative: Ailyn Farah is a 65 year old female here for screening colonoscopy Review of Systems Review of Systems: All systems reviewed & are unremarkable except as noted in HPI and below PMFSH Past Medical History Medical History Chronic pain with drug dependence Chemotherapy-induced peripheral neuropathy Erosive (osteo)arthritis Chronically on opiate therapy Chronic back pain Pneumonia Cancer of right breast Status post mastectomy and chemotherapy. Hypertension Left lower lobe pneumonia Preoperative clearance Thyroid nodule Insomnia Osteopenia Osteoarthritis Heartburn Surgical History Surgical History H/O spinal fusion History of bilateral mastectomy (10/12/19) History of cholecystectomy History of knee replacement History of breast augmentation History of hysterectomy History of back surgery Family History Family History Other Unknown family medical history Social History Social History Social History: Surrogate medical decision maker: Abisai farah, spouse or Vivien Farah, daughter. Code status: Full code. Smoking status: Never smoker Alcohol intake: current Substance use: never Substance use type: does not use Lack of Transportation: No Lack of Food: Never True Current Housing: I Have Housing Concerned About Future Housing: No Difficulty Paying Gas/Electric Bills: No Difficulty Paying for Meds: No Currently Unemployed: No Education: Associate Degree Difficulty w/ Childcare or Family Care: No Spiritual care concerns: No Meds Home Medications and Allergies Home Medications ?Medication ?Instructions ?Recorded ?Confirmed ?Type docusate sodium 100 mg capsule 100 mg PO DAILY PRN Constipation 03/22/20 05/26/25 History (Colace) multivitamin 1 tablet PO DAILY 03/22/20 06/14/25 History lisinopril 20 mg tablet 20 mg PO DAILY 06/24/22 06/14/25 History cyclobenzaprine 10 mg tablet 10 mg PO QPM 10/30/22 06/14/25 History calcium 250 mg-D3 400 1 tablet PO DAILY 11/25/22 06/14/25 History unit-magnesium 40 [id number]-Az-copper-manasa tablet tramadol 50 mg tablet 50 mg PO Q8H Use for breakthrough 01/06/24 06/14/25 Rx pain #30 tabs vitamin B12 500 mcg-folic acid 400 1 tablet PO DAILY 01/06/24 06/14/25 History mcg tablet hydroxyzine HCl 25 mg tablet 25 mg PO TID PRN anxiety 11/11/24 05/26/25 History duloxetine 30 mg capsule,delayed 30 mg PO DAILY 04/06/25 06/14/25 History release morphine 15 mg tablet,extended 30 mg PO HS 05/26/25 06/14/25 History release nabumetone 500 mg tablet 500 mg PO BID 05/26/25 06/14/25 History oxycodone-acetaminophen 10 mg-325 1 tablet PO Q6H 05/26/25 06/14/25 History mg tablet (Percocet) Allergies Allergy/AdvReac Type Severity Reaction Status Date / Time Sulfa (Sulfonamide Allergy Unknown Unknown Verified 06/14/25 06:21 Antibiotics) cyclophosphamide Allergy chest Verified 06/14/25 06:21 tightness and wheezing Vital Signs Vital Signs - 24 hr 06/14/25 06:15 Temperature 97.1 F L Pulse Rate 79 Respiratory Rate 14 Blood Pressure 152/83 H Pulse Oximetry 98 Oxygen Delivery Room Air Exam Const: General: comfortable and no acute distress HENMT: Face/Nose/Sinus: Normal nares present Eyes: General: appearance normal, both eyes and all related structures Neck: Neck: no JVD Resp: Auscultation: clear to auscultation bilaterally Cardio: Rate: regular rate Rhythm: regular rhythm GI: Inspection: non-distended GI Palp: Yes Soft to palpation Skin: General skin exam: normal color Extrem: General: normal to inspection Psych: Mental Status: mental status grossly normal Assessment and Plan Assessment and plan (1) Screening for colon cancer: Code(s): Z12.11 - Encounter for screening for malignant neoplasm of colon Status: Acute Assessment and Plan: colonoscopy
[2025-06-14 07:46] VITALS: BP 124/67; PULSE 77; RESP 30; O2SAT 100
[2025-06-14 07:56] VITALS: BP 119/63; PULSE 64; RESP 18; O2SAT 100
[2025-06-14 08:06] VITALS: BP 110/96; PULSE 74; RESP 18; O2SAT 99
== END 2025-06-14 08:15 | disposition home or self-care (01) ==
PROVIDERS: PCP Nurse Practitioner; Referring Provider Nurse Practitioner; Visit Provider Internal Medicine Gastroenterology
PROC: 0DJD8ZZ Inspection of Lower Intestinal Tract, Via Natural or Artificial Opening Endoscopic (ICD-10-PCS; CPT 45378; principal; 2025-06-14 07:30)
DX: Z12.11 Encounter for screening for malignant neoplasm of colon (principal); K64.8 Other hemorrhoids; Z86.0100 Personal history of colon polyps, unspecified; E66.9 Obesity, unspecified; Z68.35 Body mass index [BMI] 35.0-35.9, adult
CPT/HCPCS: 45378; J2003; J2704; J7120